=== PATIENT | male | born 1960 | race Caucasian/White ===

== ENCOUNTER 2018-07-25 16:43 | Inpatient (IN) | payer OTHER ==
[~2018-07-25] VITALS: Ht 175.3 cm; Wt 80.0 kg
[2018-07-25 17:24] LABS: Source, Urine Clean Catch
[2018-07-25 17:32] LABS: BASOPHILS ABSOLUTE AUTO 0.04 K/mm3 (0.00-0.23); BASOPHILS PERCENT AUTO 1 % (0-2); EOSINOPHILS ABSOLUTE AUTO 0.06 K/mm3 (0.00-0.68); EOSINOPHILS PERCENT AUTO 1 % (0-6); Hematocrit 37.9 % (37.0-53.0); Hemoglobin 12.7 g/dL (13.5-17.5); IMMATURE GRAN ABSOLUTE AUTO 0.03 K/mm3 (0.00-0.10); IMMATURE GRAN PERCENT AUTO 0 % (0-1); LYMPHOCYTES PERCENT AUTO 23 % (21-46); MONOCYTES ABSOLUTE AUTO 0.38 K/mm3 (0.16-1.47); MONOCYTES PERCENT AUTO 5 % (4-13); Mean Corpuscular HGB 28.2 pg (26.0-34.0); Mean Corpuscular HGB Conc 33.5 g/dL (31.5-36.5); Mean Corpuscular Volume 84 fL (80-100); Mean Platelet Volume 10.5 fL (9.1-12.4); NEUTROPHILS ABSOLUTE AUTO 5.49 K/mm3 (1.96-9.15); NEUTROPHILS PERCENT AUTO 70 % (41-73); Platelet Count 352 K/mm3 (150-400); RDW Coefficient Variation 12.8 % (11.7-14.2); RDW Standard Deviation 38.4 fL (35.1-46.3)
[2018-07-25 17:33] LABS: Appearance, Urine Clear (Clear); Bilirubin, Urine Neg (Neg); Blood, Urine Neg (Neg); Color, Urine Yellow (P-Yellow); Glucose Qualitative, Urine 4+ (Neg); Ketones, Urine Neg (Neg); Leukocyte Esterase, Urine Neg (Neg); Nitrite, Urine Neg (Neg); Protein, Urine Neg (Neg); Urobilinogen, Urine NORM (Normal)
[2018-07-25 17:43] LABS: International Normalized Ratio 0.93; Prothrombin Time Results 9.4 Sec (9.7-11.5)
[2018-07-25 17:52] LABS: U Amphetamine Screen DETECTED; U Barbituate Screen Not Detected; U Benzodiazapine Screen Not Detected; U Buprenorphine Screen Not Detected; U Cannabinoids Screen Not Detected; U Cocaine Screen Not Detected; U Methadone Screen Not Detected; U Methamphetamine Screen Not Detected; U Opiates Screen Not Detected; U Oxycodone Screen Not Detected; U Phencyclidine Screen Not Detected; U Propoxyphene Screen Not Detected
[2018-07-25 17:55] LABS: Ethanol (Alcohol), Blood, Med 3 mg/dL
[2018-07-25 18:26] LABS: Alanine Aminotransfer (ALT/SGP 37 U/L (12-78); Albumin, Blood 3.1 g/dL (3.4-5.0); Albumin/Globulin Ratio 0.7 (0.8-1.8); Alk Phos 190 U/L (50-136); Anion Gap 7 mmol/L (6-16); Aspartate Aminotrans (AST/SGOT 15 U/L (12-37); Bilirubin, Total 0.5 mg/dL (0.1-1.0); Blood Urea Nitrogen 26 mg/dL (8-24); CO2, Blood 24 mmol/L (21-32); Calcium, Blood 8.9 mg/dL (8.5-10.1); Chloride, Blood 90 mmol/L (98-108); Creatinine, Blood 0.93 mg/dL (0.60-1.20); Globulin, Blood 4.7 g/dL (2.2-4.0); Glomerular Filtration Rate >60 (60-); Glucose, Blood 956 mg/dL (70-99); Potassium, Blood 4.1 mmol/L (3.5-5.5); Sodium, Blood 121 mmol/L (136-145); Total Protein, Blood 7.8 g/dL (6.4-8.2)
--- NOTE | 2018-07-25 20:25 | NUR ---
REPORT FROM LISA REZA FROM ED AT 2021.
[2018-07-25 22:11] LABS: Glucose, Blood 406 mg/dL (70-99)
--- NOTE | 2018-07-25 23:36 | NUR ---
HOSPITALIST CALL BACK: UPDATED RE: TRENDING DOWN BLOOD GLUCOSE LEVELS. NEW ORDER TO STOP INSULIN gtt FOR NOW. CHANGE DIET TO ADA. ALLOW PT TO EAT. CONTINUE TO TAKE Q1' CHEMBG. RESTART gtt AT 0.5u/hr IF BLOOD GLUCOSE ABOVE 250. WHEN BLOOD GLUCOSE BELOW 200 CALL FOR NEW ORDERS. CURRENTLY RECHECKING BLOOD GLUCOSE.
--- NOTE | 2018-07-25 23:46 | NUR ---
LEG CRAMPS: PT USED CALL LIGHT. C/O LEG CRAMPS, "IT HAPPENS ABOUT THIS TIME EVERY NIGHT". SCD'S PLACED. PT STATED IS RELIEVING LEG CRAMPS.
--- NOTE | 2018-07-26 02:49 | NUR ---
INSULIN REMAINS AT 2u/hr FOR BLOOD GLUCOSE 378 POST MEAL.
[2018-07-26 03:11] LABS: Hematocrit 32.8 % (37.0-53.0); Hemoglobin 11.3 g/dL (13.5-17.5); Mean Corpuscular HGB 28.7 pg (26.0-34.0); Mean Corpuscular HGB Conc 34.5 g/dL (31.5-36.5); Mean Corpuscular Volume 83 fL (80-100); Mean Platelet Volume 10.1 fL (9.1-12.4); Platelet Count 289 K/mm3 (150-400); RDW Coefficient Variation 12.5 % (11.7-14.2); RDW Standard Deviation 37.9 fL (35.1-46.3); Red Blood Cell Count 3.94 M/mm3 (4.30-5.90); White Blood Cell Count 8.26 K/mm3 (4.00-11.30)
[2018-07-26 03:28] LABS: Anion Gap 5 mmol/L (6-16); Blood Urea Nitrogen 21 mg/dL (8-24); Bun/Creatinine Ratio 25.6 (12.0-20.0); CO2, Blood 26 mmol/L (21-32); Calcium, Blood 8.1 mg/dL (8.5-10.1); Chloride, Blood 105 mmol/L (98-108); Creatinine, Blood 0.82 mg/dL (0.60-1.20); Glomerular Filtration Rate >60 (60-); Glucose, Blood 361 mg/dL (70-99); Potassium, Blood 3.6 mmol/L (3.5-5.5)
[2018-07-26 03:30] LABS: CHOL/HDL RATIO 6.3; Cholesterol 182 mg/dL (50-200); HDL Cholesterol 29 mg/dL (>39); LDL/HDL RATIO Unable to Calculate; Low Density Lipoprotein Chol Unable to Calculate mg/dL (0-110); Triglycerides 449 mg/dL (30-160); Very Low Density Lipoprot Chol Unable to Calculate mg/dL (6-32)
[2018-07-26 03:41] LABS: LDL Direct Measurement 113 mg/dL (0-130)
[2018-07-26 03:47] LABS: Sodium, Blood 136 mmol/L (136-145)
--- NOTE | 2018-07-26 03:50 | NUR ---
INSULIN gtt INCREASED TO 2.5u/hr FOR BLOOD GLUCOSE 361. WILL CONTINUE TO MONITOR.
--- NOTE | 2018-07-26 05:43 | NUR ---
INUSLIN REMAINS AT 2.5, BLOOD GLUCOSE 266. PT PLEASANT-NO COMPLAINTS. SIPPING DECAF COFFEE AND WATCHING VIDEOS ON CELL PHONE. VSS. CALL LIGHT WITHIN REACH.
--- NOTE | 2018-07-26 05:51 | NUR ---
PT WITH C/O PAIN, SOB, OR ANXIETY T/O NOC. PT PLEASANT. VSS. PT WITH VERBAL UNDERSTANDING OF UPCOMING PROCEDURE. PT CONTINUES TO DESAT OFF BIPAP. BIPAP SETTINGS REMAIN 10/6 FiO2 45%. PT UP TO SIDE OF BED WHEN NEEDS URINAL WITHOUT DIFFICULTY. CALL LIGHT IN HAND.
--- NOTE | 2018-07-26 07:14 | NUR ---
REPORT TO EDITA REZA TO ASSUME CARE OF PT AT THIS TIME.
--- NOTE | 2018-07-26 07:30 | NUR ---
ASSUMED CARE OF PATIENT; SEE ASSESSMENT CHARTING FOR DETAILS. LUNGS CLEAR; VSS. MAEW; UP FOR BRP WITH SBA; SL. WOBBILY AT FIRST. DENIES VERTIGO. CBG READINGS STABILIZED IN 200'S. WILL CONTACT HOSP. FOR CBG CHANGES AND D/C INSULIN DRIP, ETC. CURRENTLY RECEIVING INSULIN GTT AT 2.5U/HR AND NS AT 150ML/HR.
--- NOTE | 2018-07-26 09:00 | NUR ---
T/C TO DR. BROWN TO SEE IF INSULIN GTT CAN BE DC'D AND PATIENT CHANGED TO AC/HS SLIDING SCALE INSULIN, ETC.; SEE ORDERS.
--- NOTE | 2018-07-26 09:30 | NUR ---
DR. BROWN HERE AND TALKED WITH PATIENT RE: POC OF HYPERGLYCEMIA/DM. PATIENT WILL NEED TO BE SETUP WITH A PCP, ETC. PRIMER ASSEMBLER TO SPEAK WITH PATIENT AND INSTRUCT ON DIET ETC. MAT REPAIRER TO COORDINATE FOR PCP, ETC.
--- NOTE | 2018-07-26 15:15 | NUR ---
LUIS ALBERTO FROM [facility] HERE; SETUP APPOINTMENT FOR PATIENT TO SEE KAMALJIT ZULUAGA NP ON SUNDAY AT 0930; ALSO GAVE PATIENT A GLUCOMETER AND RECOMMENDED IF PATIENT IS DISCHARGED OVER W/E FOR PHYSICIAN TO ORDER BASAGLAR (LONG ACTING INSULIN) BECAUSE NO PREAUTH. INDICATED THROUGH [facility]; [facility] CAN LATER WORK ON PREAUTH. FOR DIFFERENT LONG ACTING INSULIN IF NEEDED.
--- NOTE | 2018-07-26 15:20 | NUR ---
REPORT TO JUAQUIN ENGLISH. PATIENT TO TRANSFER TO MEDICAL FLOOR, ROOM 343; NO MONITOR ONGOING.
--- NOTE | 2018-07-26 15:30 | NUR ---
TRAMSFERRED TO MEDICAL FLOOR, ROOM 343, VIA W/C BY JUNIOR ASSISTANT MANAGER 2. PATIENT DENIES ACUTE C/O. BELONGINGS ACCOMPANYING PATIENT WELL CHART.
--- NOTE | 2018-07-26 15:44 | NUR ---
PATIENT TRANSFERRED FROM ICU 14 TO ROOM 343. ASSUMED CARE OF THIS PATIENT, REPORT RECEIVED FROM JUAQUIN KOHLER. PATIENT IS A/O, UP TO RESTROOM INDEPENDENTLY. LUNGS CLEAR, ON RA. DENIES ANY PAIN OR DISCOMFORT. A FEW ABRASIONS TO FACE AND BACK FROM FALL WHEN PATIENT WAS DISORIENTED AND HYOERGLYCEMIC. PATIENT ORIENTED TO ROOM AND INSTRUCTED ON USE OF CALL LIGHT.
--- NOTE | 2018-07-27 05:45 | NUR ---
SHIFT SUMMARY PT HAS SLEPT WELL T/O NIGHT. OFFERS NO C/O'S. NO ACUTE EVENTS NOTED DURING THE NIGHT. WILL CONTINUE TO MONITOR.
[2018-07-27 08:06] LABS: Albumin, Blood 2.8 g/dL (3.4-5.0); Anion Gap 7 mmol/L (6-16); Blood Urea Nitrogen 17 mg/dL (8-24); Bun/Creatinine Ratio 20.6 (12.0-20.0); CO2, Blood 25 mmol/L (21-32); Calcium, Blood 8.8 mg/dL (8.5-10.1); Chloride, Blood 106 mmol/L (98-108); Creatinine, Blood 0.83 mg/dL (0.60-1.20); Glomerular Filtration Rate >60 (60-); Glucose, Blood 293 mg/dL (70-99); Phosphorus, Blood 2.8 mg/dL (2.5-4.9); Sodium, Blood 138 mmol/L (136-145)
[2018-07-27] MEDS ORDERED: INSULANPEN SC (12:18)
[2018-07-27] MEDS ORDERED: Lisinopril2.5 MG PO (12:19)
[2018-07-27] MEDS ORDERED: NICO21TP TOP (12:20)
[2018-07-27] MEDS ORDERED: Humalog100 UNIT/1 SC (12:21)
--- NOTE | 2018-07-27 12:37 | NUR ---
CALLED IN TEST STRIPS FOR CONTOUR METER AND LANCETS TO [facility]. QTY 100 TO BE USED ACHS.
--- NOTE | 2018-07-27 14:45 | NUR ---
PATIENT D/C'D TO HOME WITH FAMILY. RX MEDICATIONS FAXED TO [facility]. PATIENT DEMONSTRATED HOW TO TAKE HIS BLOOD SUGAR USING HIS METER AND GAVE HIMSELF A SHOT OF INSULIN. COPY OF MEDIUM SLIDING SCALE GIVEN TO PATIENT AND HE WAS EDUCATED ON USE. D/C INSTRUCTIONS AND EDUCATION DISCUSSED WITH PATIENT AND COPY PROVIDED. PATIENT DENIES ANY FURTHER QUESTIONS OR CONCERNS.
== END 2018-07-27 14:55 | disposition home or self-care (01) | DRG 638 ==
LOC: ER 16:43 → ICUW 19:08 → MEDS 07-26 15:30 → ENPENDDIS 07-27 11:33 → MEDS 07-27 14:55
PROVIDERS: Internal Medicine; Nurse Practitioner Acute Care; Physician Assistant; ADMIT Internal Medicine
DX: E11.65 Type 2 diabetes mellitus with hyperglycemia (principal); E87.1 Hypo-osmolality and hyponatremia; E86.0 Dehydration; F19.10 Other psychoactive substance abuse, uncomplicated; F17.210 Nicotine dependence, cigarettes, uncomplicated; I10 Essential (primary) hypertension
CPT/HCPCS: 36415; 70450; 80048; 80053; 80061; 80069; 81003; 82947; 83036; 83721; 83735; 83880; 85025; 85027; 85610; 93005; 93010; 96360; 99285-25; G0480; J1650; J1815; J7030

== ENCOUNTER 2022-01-19 23:22 | Observation (INO) | payer OTHER ==
[~2022-01-19] VITALS: Ht 175.3 cm; Wt 66.1 kg
[~2022-01-19 23:22] MED LIST: Humalog100 UNIT/1 SC; INSULANPEN SC; Lisinopril2.5 MG PO; NICO21TP TOP
[2022-01-20 00:21] LABS: BASOPHILS ABSOLUTE AUTO 0.06 K/mm3 (0.00-0.23); BASOPHILS PERCENT AUTO 1 % (0-2); EOSINOPHILS ABSOLUTE AUTO 0.07 K/mm3 (0.00-0.68); EOSINOPHILS PERCENT AUTO 1 % (0-6); Hematocrit 40.3 % (37.0-53.0); Hemoglobin 13.9 g/dL (13.5-17.5); IMMATURE GRAN ABSOLUTE AUTO 0.03 K/mm3 (0.00-0.10); IMMATURE GRAN PERCENT AUTO 0 % (0-1); LYMPHOCYTES ABSOLUTE AUTO 1.75 K/mm3 (0.84-5.20); LYMPHOCYTES PERCENT AUTO 24 % (21-46); MONOCYTES ABSOLUTE AUTO 0.62 K/mm3 (0.16-1.47); MONOCYTES PERCENT AUTO 9 % (4-13); Mean Corpuscular HGB 28.8 pg (26.0-34.0); Mean Corpuscular HGB Conc 34.5 g/dL (31.5-36.5); Mean Corpuscular Volume 84 fL (80-100); Mean Platelet Volume 10.7 fL (9.1-12.4); NEUTROPHILS ABSOLUTE AUTO 4.72 K/mm3 (1.96-9.15); NEUTROPHILS PERCENT AUTO 65 % (41-73); Platelet Count 329 K/mm3 (150-400); RDW Coefficient Variation 12.2 % (11.7-14.2); RDW Standard Deviation 37.2 fL (35.1-46.3); Red Blood Cell Count 4.82 M/mm3 (4.30-5.90); White Blood Cell Count 7.25 K/mm3 (4.00-11.30)
[2022-01-20 00:44] LABS: Albumin/Globulin Ratio 0.7 (0.8-1.8); Bilirubin, Total 0.3 mg/dL (0.1-1.0); Bun/Creatinine Ratio 24.1 (12.0-20.0); Creatinine, Blood 0.96 mg/dL (0.60-1.20); Globulin, Blood 4.2 g/dL (2.2-4.0); Potassium, Blood 4.1 mmol/L (3.5-5.5); Total Protein, Blood 7.2 g/dL (6.4-8.2)
[2022-01-20 01:04] LABS: Source, Urine Clean Catch
[2022-01-20 01:16] LABS: Bilirubin, Urine Neg (Neg); Blood, Urine Neg (Neg); Glucose Qualitative, Urine 4+ (Neg); Ketones, Urine Neg (Neg); Leukocyte Esterase, Urine Neg (Neg); Nitrite, Urine Neg (Neg); Protein, Urine Neg (Neg); Urobilinogen, Urine NORM (Normal)
[2022-01-20 01:18] LABS: Appearance, Urine Clear (Clear); Color, Urine Pale Yellow (P-Yellow)
[2022-01-20 02:10] LABS: Base Excess Venous 0.5 mmol/L; Bicarbonate Venous 24.6 mmol/L (24.0-30.0); PCO2 Venous 42.5 mmHg (38-42); pH Blood Venous 7.39 (7.34-7.37)
--- NOTE | 2022-01-20 05:45 | NUR ---
SHIFT SUMMARY: PT. ARRIVED AT APPROX 0500 FOR MANAGEMENT OF INSULIN DRIP. PT. IS A&0 X4 AND IS ABLE TO AMBULATE WITH STANDBY ASSISTANCE. PT. WAS HUNGRY AND A SANDWICH WAS GIVEN. ALL OTHER SYSTEMS ARE WNL AND PT. IS RESTING COMFORTABLY WITH CALL LIGHT IN REACH.
[2022-01-20 05:55] LABS: Bun/Creatinine Ratio 23.1 (12.0-20.0); Calcium, Blood 8.9 mg/dL (8.5-10.1); Creatinine, Blood 0.74 mg/dL (0.60-1.20); Potassium, Blood 3.3 mmol/L (3.5-5.5)
--- NOTE | 2022-01-20 07:10 | NUR ---
TOOK OVER CARE OF PT AT 0700, PT RESTING ON RA. INSULIN ON SB.
--- NOTE | 2022-01-20 16:17 | NUR ---
SUMMARY NEURO: WNL CARDIAC: WNL LUNGS: WNL SKIN: WOUND ON L FOOT- PHOTO IN CHART. REDNESS AND SWELLING TO LOWER CALF AND FOOT. GI/: WNL ENDOCRINE: INSULIN GTT STOPPED THIS AM, POTASSIUM REPLACED WITH 40 MEQ
--- NOTE | 2022-01-20 17:59 | NUR ---
TRANSFER NOTE: PT A&O X4 PLEASANT AND COOPERATIVE. PT TRANSFERED VIA WHEELCHAIR BY ICU STAFF. PT TRANSFER SBA ASSIST FROM WHEELCHAIR TO BED. PT ORIENTATED TO ROOM, CALL LIGHT AND COMMUNICATION BOARD. PT RECEVIED SANDWHICHES AND SNACKS. PT IN BED WITH LIGHT WITHIN REACH.
--- NOTE | 2022-01-20 21:30 | NUR ---
CALL TO DR. PANTOJA RE: PT CBG 351- PT HAD SNACK AT CHANGE OF SHIFT- OK TO GIVE HS DOSING OF INSULIN - NO NEW ORDERS
--- NOTE | 2022-01-21 04:12 | NUR ---
SHIFT SUMMARY PT UPSET AT BEGINNING OF SHIFT - PT STATED "THE FOOD IS NOT GOOD HERE AND SMALL PORTIONS- I MINE WELL LEAVE" - PT REQUESTED SNACK MULTIPLE TIMES DURING THE BEGINNING SHIFT AND PT LEFT ROOM FOR 10-15 MINUTES- PT REPORTED HE WENT OUTSIDE FOR FRESH AIR- EXPLAINED TO PT THAT HE NEEDS TO NOT LEAVE THE HOSPITAL- PT STATED THAT HE AGREED- NOTIFIED HOSPITIAL THAT CBG WAS 351 AT HS- PT HAD ATE SNACKS BEFORE CBG- NO NEW ORDERS- PT SLEPT FOR MOST OF SHIFT
[2022-01-21 06:11] LABS: Hematocrit 44.7 % (37.0-53.0); Hemoglobin 15.4 g/dL (13.5-17.5); Mean Corpuscular HGB 29.4 pg (26.0-34.0); Mean Corpuscular HGB Conc 34.5 g/dL (31.5-36.5); Mean Corpuscular Volume 86 fL (80-100); Mean Platelet Volume 11.1 fL (9.1-12.4); Platelet Count 339 K/mm3 (150-400); RDW Coefficient Variation 12.4 % (11.7-14.2); RDW Standard Deviation 38.9 fL (35.1-46.3); Red Blood Cell Count 5.23 M/mm3 (4.30-5.90); White Blood Cell Count 7.46 K/mm3 (4.00-11.30)
[2022-01-21 06:42] LABS: Bun/Creatinine Ratio 34.5 (12.0-20.0); Calcium, Blood 9.6 mg/dL (8.5-10.1); Creatinine, Blood 0.75 mg/dL (0.60-1.20); Potassium, Blood 4.2 mmol/L (3.5-5.5)
--- NOTE | 2022-01-21 11:38 | NUR ---
NURSE NOTE: PT CB, DR. MARIE CONTACTED NEW ORDER FOR ONE TIME DOSE 5 UNITS ADDITIONAL HUMULIN R GIVEN WITH SCHEDCULED MEDIUM SLIDING SCALE OF 10 UNITS. RECHECK CBG IN 2 HOURS.
[2022-01-21] MEDS ORDERED: CEPH500 PO (13:51)
[2022-01-21] MEDS ORDERED: BASAGLAR K100 UNIT/1 SC (13:55)
[2022-01-21] MEDS ORDERED: METF500C PO (13:57)
--- NOTE | 2022-01-21 17:10 | NUR ---
DISCHARGE SUMMARY: PT A&O PLEASANT AND COOPERATIVE. PT EDUCATED ON BLOOD SUGAR CHECKS, INSULIN ADMINISTRATION, AND WOUND FOOT CARE. PT DISPLAYED UNDERSTANDING WITH TEACH BACK METHOD. PT ESCORTED DOWN TO THE LOBBY FOR TRANSPORT BY CAROLYN CONSTANTINO RN VIA .
== END 2022-01-21 16:58 | disposition home or self-care (01) ==
LOC: ER 23:22 → ICUW 23:23 → MEDS 01-20 17:57
PROVIDERS: Emergency Medicine; Internal Medicine; Physician Assistant; ADMIT Internal Medicine
DX: E11.00 Type 2 diabetes mellitus with hyperosmolarity without nonketotic hyperglycemic-hyperosmolar coma (NKHHC) (principal); F17.200 Nicotine dependence, unspecified, uncomplicated; S91.302A Unspecified open wound, left foot, initial encounter
CPT/HCPCS: 36415; 73630; 80048; 80053; 81003; 82803; 82947; 83690; 83930; 85025; 85027; 90714; 96372; A9270; G0378; J1650; J1815; J7030

== ENCOUNTER 2022-02-23 17:50 | Inpatient (IN) | payer OTHER ==
[~2022-02-23] VITALS: Ht 175.3 cm; Wt 67.9 kg
[~2022-02-23 17:50] MED LIST changes: +BASAGLAR K100 UNIT/1 SC; +CEPH500 PO; +METF500C PO
[2022-02-23 19:48] LABS: BASOPHILS ABSOLUTE AUTO 0.06 K/mm3 (0.00-0.23); BASOPHILS PERCENT AUTO 0 % (0-2); EOSINOPHILS ABSOLUTE AUTO 0.06 K/mm3 (0.00-0.68); EOSINOPHILS PERCENT AUTO 0 % (0-6); Hematocrit 39.2 % (37.0-53.0); Hemoglobin 13.4 g/dL (13.5-17.5); IMMATURE GRAN ABSOLUTE AUTO 0.08 K/mm3 (0.00-0.10); IMMATURE GRAN PERCENT AUTO 1 % (0-1); LYMPHOCYTES ABSOLUTE AUTO 2.22 K/mm3 (0.84-5.20); LYMPHOCYTES PERCENT AUTO 15 % (21-46); MONOCYTES ABSOLUTE AUTO 1.36 K/mm3 (0.16-1.47); MONOCYTES PERCENT AUTO 9 % (4-13); Mean Corpuscular HGB 28.6 pg (26.0-34.0); Mean Corpuscular HGB Conc 34.2 g/dL (31.5-36.5); Mean Corpuscular Volume 84 fL (80-100); NEUTROPHILS ABSOLUTE AUTO 11.56 K/mm3 (1.96-9.15); NEUTROPHILS PERCENT AUTO 75 % (41-73); Platelet Count 414 K/mm3 (150-400); RDW Standard Deviation 36.4 fL (35.1-46.3); Red Blood Cell Count 4.68 M/mm3 (4.30-5.90); White Blood Cell Count 15.34 K/mm3 (4.00-11.30)
[2022-02-23 20:18] LABS: Albumin, Blood 2.8 g/dL (3.4-5.0); Albumin/Globulin Ratio 0.6 (0.8-1.8); Bilirubin, Total 0.3 mg/dL (0.1-1.0); Bun/Creatinine Ratio 20.6 (12.0-20.0); Calcium, Blood 8.8 mg/dL (8.5-10.1); Creatinine, Blood 0.82 mg/dL (0.60-1.20); Globulin, Blood 4.4 g/dL (2.2-4.0); Potassium, Blood 3.9 mmol/L (3.5-5.5); Total Protein, Blood 7.2 g/dL (6.4-8.2)
[2022-02-24 05:57] LABS: BASOPHILS ABSOLUTE AUTO 0.05 K/mm3 (0.00-0.23); BASOPHILS PERCENT AUTO 0 % (0-2); EOSINOPHILS ABSOLUTE AUTO 0.07 K/mm3 (0.00-0.68); EOSINOPHILS PERCENT AUTO 1 % (0-6); Hematocrit 38.6 % (37.0-53.0); Hemoglobin 13.2 g/dL (13.5-17.5); IMMATURE GRAN ABSOLUTE AUTO 0.05 K/mm3 (0.00-0.10); IMMATURE GRAN PERCENT AUTO 0 % (0-1); LYMPHOCYTES ABSOLUTE AUTO 1.81 K/mm3 (0.84-5.20); LYMPHOCYTES PERCENT AUTO 15 % (21-46); MONOCYTES ABSOLUTE AUTO 0.96 K/mm3 (0.16-1.47); MONOCYTES PERCENT AUTO 8 % (4-13); Mean Corpuscular HGB 28.5 pg (26.0-34.0); Mean Corpuscular HGB Conc 34.2 g/dL (31.5-36.5); Mean Corpuscular Volume 83 fL (80-100); Mean Platelet Volume 10.3 fL (9.1-12.4); NEUTROPHILS ABSOLUTE AUTO 9.42 K/mm3 (1.96-9.15); NEUTROPHILS PERCENT AUTO 76 % (41-73); Platelet Count 382 K/mm3 (150-400); RDW Coefficient Variation 12.1 % (11.7-14.2); RDW Standard Deviation 36.3 fL (35.1-46.3); Red Blood Cell Count 4.63 M/mm3 (4.30-5.90); White Blood Cell Count 12.36 K/mm3 (4.00-11.30)
--- NOTE | 2022-02-24 06:26 | NUR ---
MR. GROVES WAS ADMITTED TO ROOM 326 FROM THE ER AT 02:21 THIS MORNING. AT THAT TIME, HE WAS QUITE SLEEPY BUT EASY TO AROUSE FOR ADMISSION HISTORY AND ASSESSMENT. HIS SPEECH IS SOMEWHAT DIFFICULT TO UNDERSTAND AT TIMES. HE MUMBLES AND HIS SPEECH IS "THICK" SOUNDING. PATIENT DENIES ANY CHANGES TO HIS SPEECH FROM HIS BASELINE. 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 GROVES ARRIVED DISHEVELED BUT IN NO DISTRESS. HIS HANDS, FEET AND CLOTHING ARE SOILED WITH DIRT "FROM WORKING OUTSIDE," AND HE REFUSED A BED BATH UPON ADMISSION BUT IS AGREEABLE TO A SHOWER AFTER HE GETS SOME SLEEP. PICTURES TAKEN OF WOUNDS TO BILAT FEET. SEE CHART. MR. GROVES DECLINED THE FLU VACCINATION UPON ADMISSION. HE IS REQUESTING THAT THE VACCINATION BE DELAYED UNTIL HE FEELS BETTER, PREFERABLY JUST BEFORE DISCHARGE. NURSE NOTIFICATION ORDER PLACED PER INSTRUCTIONS FROM FUNNEL COATERJUAQUIN SILVA AND PER PATIENT REQUEST. HE SLEPT THROUGH MOST OF THE NIGHT. HE WAS UP TO THE BATHROOM EARLY THIS MORNING AND ABLE TO AMBULATE WITH STANDBY ASSISTANCE. BED ALARM IN PLACE DUE TO HISTORY OF FALLS.
[2022-02-24 06:42] LABS: Albumin, Blood 2.4 g/dL (3.4-5.0); Albumin/Globulin Ratio 0.6 (0.8-1.8); Bilirubin, Total 0.3 mg/dL (0.1-1.0); Bun/Creatinine Ratio 21.2 (12.0-20.0); Calcium, Blood 8.5 mg/dL (8.5-10.1); Creatinine, Blood 0.71 mg/dL (0.60-1.20); Globulin, Blood 4.1 g/dL (2.2-4.0); Potassium, Blood 3.7 mmol/L (3.5-5.5); Total Protein, Blood 6.5 g/dL (6.4-8.2)
--- NOTE | 2022-02-24 10:19 | NUR ---
LEFT FOOT WOUND CLEANED WOUND USEING SKIN TEGRITY WOUND LANGUAGE THERAPIST, CVERED WITH SPONGE BANDAGE
--- NOTE | 2022-02-24 17:30 | NUR ---
PT IS A/OX3, PLEASANT AND COOPERATIVE. UP WITH MINIMAL ASSIST THE PT HAS A SKIN TEAR ON THE RIGHT KNEE CLEANED AND BANDAGE APPLIED WELL A LEFT FOOT OPEN WOUND WITH TUNNELING BANDAGE APPLIED. PT DENIED ANY PAIN T/O THE DAY. THE PT IS TO BE NPO AFTER MN TONIGHT. PT APPEARS TO BE BREATHING EASILY ON RA, CALL LIGHT IN REACH
[2022-02-24 23:07] LABS: Vancomycin, Trough 13.3 ug/mL (5.0-10.0)
[2022-02-25 05:47] LABS: BASOPHILS ABSOLUTE AUTO 0.05 K/mm3 (0.00-0.23); BASOPHILS PERCENT AUTO 0 % (0-2); EOSINOPHILS ABSOLUTE AUTO 0.05 K/mm3 (0.00-0.68); EOSINOPHILS PERCENT AUTO 0 % (0-6); Hematocrit 39.8 % (37.0-53.0); Hemoglobin 13.4 g/dL (13.5-17.5); IMMATURE GRAN ABSOLUTE AUTO 0.07 K/mm3 (0.00-0.10); IMMATURE GRAN PERCENT AUTO 1 % (0-1); LYMPHOCYTES ABSOLUTE AUTO 1.94 K/mm3 (0.84-5.20); LYMPHOCYTES PERCENT AUTO 15 % (21-46); MONOCYTES ABSOLUTE AUTO 1.13 K/mm3 (0.16-1.47); MONOCYTES PERCENT AUTO 9 % (4-13); Mean Corpuscular HGB 28.1 pg (26.0-34.0); Mean Corpuscular HGB Conc 33.7 g/dL (31.5-36.5); Mean Corpuscular Volume 83 fL (80-100); Mean Platelet Volume 10.3 fL (9.1-12.4); NEUTROPHILS ABSOLUTE AUTO 9.33 K/mm3 (1.96-9.15); NEUTROPHILS PERCENT AUTO 74 % (41-73); Platelet Count 425 K/mm3 (150-400); RDW Coefficient Variation 11.9 % (11.7-14.2); RDW Standard Deviation 36.4 fL (35.1-46.3); Red Blood Cell Count 4.77 M/mm3 (4.30-5.90); White Blood Cell Count 12.57 K/mm3 (4.00-11.30)
--- NOTE | 2022-02-25 05:56 | NUR ---
SHIFT SUMMARY: PT IS ALERT AND ORIENTED. PT IS CALM AND COOPERATIVE WITH CARE. PT CALLS APPROPRIATELY. PT SCHEDULED TO HAVE I & D TODAY ON L. FOOT WOUND, NPO AFTER MIDNIGHT. PT DENIES PAIN, NAUSEA, VOMITING, AND SOB. SATS > 90% ON ROOM AIR. NO ACUTE CHANGES OR COMPLICATIONS THIS SHIFT. BED IN LOW POSITION, CALL LIGHT WITHIN REACH, WILL CONTINUE TO MONITOR AND REPORT TO DAY NURSE.
[2022-02-25 05:57] LABS: Bun/Creatinine Ratio 28.9 (12.0-20.0); Calcium, Blood 8.6 mg/dL (8.5-10.1); Creatinine, Blood 0.76 mg/dL (0.60-1.20)
--- NOTE | 2022-02-25 17:40 | NUR ---
SHIFT SUMMARY PT AxOx4. PT WENT FOR SURGICAL INTERVENTION THIS SHIFT, RESULTING IN AMPUTATION OF 2 SMALL TOES ON LLE. PT ARRIVED BACK FROM PACU AT APPROX 1400. LLE WRAPPED IN GAUZE DRESSINGS WITH SKYE ON OUTSIDE. DRESSING C/D/I. POST OP VITALS INITIATED. PT DROWSY UPON ARRIVAL, BUT VITALS REMAINED STABLE. PT DID HAVE SOME IMPULSIVE AND AGGRESSIVE BEHAVIOR AFTER HE WOKE UP FROM NAPPING LATER IN THE AFTERNOON. PT PROCEEDED TO JUMP OUT OF BED WITH UNSTEADY GAIT RUSHING TO BATHROOM STATING "IM FINE, IM FINE." BED ALARM TURNED ON AND FALL RISK EDUCATION PROVIDED. PT ALSO THREW A WHOLE PLATE OF SALAD ALL OVER THE GROUND STATING "IF I WANTED THIS GREEN SHIT TO EAT, I WOULD JUST GO OUTSIDE AND EAT THE GRASS." PT WAS GIVEN SEVERAL OTHER PANTRY SNACK BEFORE DINNER WELL. PT REPORTS PAIN STARTING TO KICK IN THIS EVENING AND GIVEN ONE PAIN PILL. PT IS CURRENTLY SITTING IN BED EATING DINNER AND WATCHING TV. VITALS ARE STILL BEING CLOSELY MONITORED AND CALL LIGHT IS IN REACH.
--- NOTE | 2022-02-26 04:20 | NUR ---
Summary: Patient Aox4. VSS. IV antibiotics given. Patient very easily agitated. Glucose elevated in 400s. Notified MD. No new orders, sliding scale given per orders. Patient continuously asking for food, ice cream, cake and soda. Education provided multiple times, provided sugar free options to patient. Patient attempted to get out of bed multiple times after education was provided to call before so staff could help him as he is not to bear weight on foot with toes amputated today. Educated patient to use walker like crutches to avoid putting weight on L foot wound. Patient asked to see his foot wound, educated patient that the doctor would remove the dressing in the next day or two, we needed to leave it in place to prevent infection. Patient removed dressing himself. New dressing applied by nurse. Patient removed his IV stating is was "bugging him". New IV placed. Education provided for patient to not remove lines himself.
[2022-02-26 05:32] LABS: BASOPHILS ABSOLUTE AUTO 0.03 K/mm3 (0.00-0.23); BASOPHILS PERCENT AUTO 0 % (0-2); EOSINOPHILS PERCENT AUTO 0 % (0-6); Hemoglobin 12.3 g/dL (13.5-17.5); IMMATURE GRAN ABSOLUTE AUTO 0.09 K/mm3 (0.00-0.10); IMMATURE GRAN PERCENT AUTO 1 % (0-1); LYMPHOCYTES ABSOLUTE AUTO 1.43 K/mm3 (0.84-5.20); LYMPHOCYTES PERCENT AUTO 8 % (21-46); MONOCYTES ABSOLUTE AUTO 1.46 K/mm3 (0.16-1.47); MONOCYTES PERCENT AUTO 8 % (4-13); Mean Corpuscular HGB 28.5 pg (26.0-34.0); Mean Corpuscular HGB Conc 34.2 g/dL (31.5-36.5); Mean Corpuscular Volume 83 fL (80-100); Mean Platelet Volume 10.4 fL (9.1-12.4); NEUTROPHILS ABSOLUTE AUTO 14.92 K/mm3 (1.96-9.15); NEUTROPHILS PERCENT AUTO 83 % (41-73); Platelet Count 439 K/mm3 (150-400); RDW Coefficient Variation 11.9 % (11.7-14.2); RDW Standard Deviation 36.6 fL (35.1-46.3); Red Blood Cell Count 4.32 M/mm3 (4.30-5.90); White Blood Cell Count 17.93 K/mm3 (4.00-11.30)
[2022-02-26 05:56] LABS: Bun/Creatinine Ratio 33.7 (12.0-20.0); Calcium, Blood 8.7 mg/dL (8.5-10.1); Creatinine, Blood 0.89 mg/dL (0.60-1.20); Potassium, Blood 4.2 mmol/L (3.5-5.5)
[2022-02-26 15:30] LABS: Vancomycin, Trough 19.1 ug/mL (5.0-10.0)
--- NOTE | 2022-02-26 17:45 | NUR ---
SHIFT SUMMARY; ASSUMED CARE AT 0700. OFTEN AGITATED AND DEMANDING DURING SHIFT. YELLING AT BREAKFAST THAT THE FOOD AMOUNT ISN'T ENOUGH TO FEED A 10 YEAR OLD. SHOVES BEDSIDE TABLE AWAY FROM BED. EVENUTALLY ATE BREAKFAST AND SANDWHICHES PROVIDED. DISCUSSED FILLING OUT MENU TO BE ABLE TO SELECT CHOICES. WORKED WITH PT, AMBULATES IN ROOM WITH WALKER. LEFT FOOT DRESSING DRY AND INTACT. PULLS IV OUT IN AFTERNOON AND STATES WAS "JUST SCRATCHING". PLACED NEW IV TO LEFT FORE ARM. LEAVES ROOM AT APPROX 1600 AFTER 30 MINS CALLED SECURITY TO ASSIST IN LOCATING PT. PT SITTING IN ER LOBBY. ASKED TO COME BACK TO ROOM BY SECURITY. RETURNS TO ROOM AT 1645. WHEN ENTERING ROOM TELLS THIS RN HE DOESN'T LIKE ME AND WANTS A NEW NURSE. STATES IT'S BULLSHIT HE CAN'T GET A SALAD AROUND HERE AND ALL WE WANT TO DO IS STARVE HIM. ASKED PT MULTIPLE TIMES TO LOWER VOICE AND NOT BE AGRESSIVE TOWARDS STAFF. EXPLAINED [employer]FETERIA HOURS AND THAT ONLY SNACKS ARE AVAILABLE FROM OUR PANTRY BETWEEN MEALS. EVENTUALLY CALMS AND STATES IS SORRY. CHEESE AND CRACKER PROVIDED. NEXT MEAL TIME DISCUSSED. WATCHING TV, MEDICATED PER EMAR. WILL CONTINUE TO MONITOR AND TREAT UNTIL CHANGE OF SHIFT.
--- NOTE | 2022-02-27 04:37 | NUR ---
Summary: Patient did well overnight. He slept for majority of the night. Pain controlled with oral meds. Ambulating independently for the most part with a walker. Dressing to L foot clean dry and intact. VSS. No acute events. IV abx given.
--- NOTE | 2022-02-27 12:00 | NUR ---
PT PULLS OUT HIS IV. HE THREATENS TO LEAVE AMA, STATES THAT HE WANTS TO GO HOME. BECOMES AGGITATED, STATES HE DOESN'T LIKE THE FOOD AND IS "STARVING IN HERE", DESPITE HAVING MULTIPLE SNACKS. THROWS HIS URINAL ON THE GROUND. RN RE-EDUCATED PT THAT IN THE HOSPITAL HIS ABX TREATMENT WILL COME THROUGH AN IV, SO IF HE WOULD LIKE TO REMAIN IN THE HOSPITAL FOR TREATMENT, HE WILL NEED TO LEAVE HIS IV'S IN PLACE. NEW IV IS PLACED BY JUAQUIN HERNANDEZ. RN WRAPPED PT'S IV WITH COBAN AND NETTING. ADVISED PT THAT IF THE IV BECOMES PAINFUL, NOTIFY RN PRIOR TO REMOVING THE IV HIMSELF.
--- NOTE | 2022-02-27 17:24 | NUR ---
PT WALKED OFF THE FLOOR. RN ADVISED PT THAT HE NEEDS TO RECEIVE HIS VANCO, BUT PT STATED HE WASN'T READY. HE WANTS TO GO TO THE ER AND SIT THERE TO CLEAR HIS HEAD. PT WAS ADVISED BY THIS RN AND INTERFACE ANALYST THAT IT'S AGAINST OUR POLICY FOR PTS TO LEAVE THE MEDICAL FLOOR. PT BECAME AGITATED, AND WALKED OFF THE FLOOR USING A WALKER. RN PLACED A PHONE CALL TO DR. MARTINEZ TO UPDATE HIM. RN UPDATED PHARMACIST THAT PT'S [address] MARTINEZ WITH ORDERS TO ADD A TOXICOLOGY SCREEN TO THE MORNING LABS AND ALSO PO ATIVAN 0.5 MG BID PRN ANXIETY.
--- NOTE | 2022-02-27 17:39 | NUR ---
RN NOTIFIED SECURITY, AND ASKED TO MONITOR PATIENTLY REMOTELY THTRIP CAMERA. PT DID NOT LEAVE THE FLOOR TO GO TO THE ER, HE PREVIOUSLY STATED. PT IS CURRENTLY SITTING NEXT TO THE ELEVATORS ON THE THIRD FLOOR, SO HE IS STILL COMPLYING WITH HOSPITAL POLICY. HE IS BEARING WEIGHT ON HIS LEFT FOOT (AGAINST THE ADVICE OF DR. ANTOINE,WHO ADVISED TO KEEP WEIGHT OFF THE FOOT TO PROMOTE HEALING), AND REFUSED VANCOMYCIN TREATMENT AT 1600 TODAY.
--- NOTE | 2022-02-27 19:18 | NUR ---
SHIFT SUMMARY PT HAS A LABILE MOOD, HE WILL THREATEN TO LEAVE AMA WHEN HE IS TOLD NO. FOR EXAMPLE, IF HE DOESN'T RECEIVE ADEQUATE SNACKS DUE TO HIS MULITPLE REQUESTS, HE WILL THREATEN TO LEAVE. HE MISSED HIS 1600 VANCO DOSE BECAUSE HE WANTED TO LEAVE HIS ROOM AND SIT OUT ON THE MEDICAL FLOOR. HE PULLED HIS IV EARLIER THIS SHIFT, BECAUSE IT WAS HURTING HIM. HE NOW HAS A NEW IV PLACED, AND IT IS WRAPPED WITH COBAN AND WHITE NETTING. DR. ANTOINE ROUNDED ON PT AT BEDSIDE, AND RECOMMENDED THAT HE REMAIN NON WEIGHT BEARING MUCH POSSIBLE TO LEFT FOOT. PT STATES THAT HE WANTS TO WALK AROUND THE MEDICAL FLOOR. RN RE-EDUCATED PT THAT PURPOSE OF IV'S IS FOR ABX TREATMENT, WHICH IS THE REASON HE'S HERE IN THE HOSPITAL. PT FLUCTUATES ON WANTING TO LEAVE AND BEING WILLING TO CONSENT TO STAY. HE REMAINED ON MEDICAL FLOOR, AND WAS OBSERVED BY SECURITY. ROOM AIR. INDPENDENT IN ROOM, USES URINAL AT BEDSIDE.
--- NOTE | 2022-02-28 05:12 | NUR ---
Jose Maria: Patient VSS throughout night. Patient very easily agitated and consistently saying he is leaving but redirectable into staying. IV antibiotics given. Patient ambulated to the restroom independently. Patient educated to not bear full weight on his foot with wound. Dressing clean dry and intact on L foot.
[2022-02-28 15:23] LABS: Vancomycin, Trough 19.1 ug/mL (5.0-10.0)
[2022-02-28] MEDS ORDERED: AUGMENTIN PO (15:32)
[2022-02-28] MEDS ORDERED: AMOCLA875 PO (15:41)
--- NOTE | 2022-02-28 16:09 | NUR ---
SHIFT/DISCHARGE SUMMARY: PATIENT A&OX4. PLEASANT AND MOOD FLUCTUATES T/O SHIFT. DENIES CP/CHEST DISCOMFORT. LUNGS CLEAR T/O TO AUSCULTATIONS. DENIES PAIN TO LLE. RECEIVED SCHEDULED MEDS. PATIENT PULLED IV TO L FOREARM THIS AM. REFUSED SCHEDULED NOON ANTIBIOTIC. RECEIVED BS COVERAGE PER EMAR. PATIENT HAS BEEN AMBULATING IN ROOM AND HALLWAYS INDEPENDENTLY. VITAL SIGNS REVIEWED. PATIENT DISCHARGE HOME. DISCHARGE INSTURCTION PACKET GIVEN TO PATIENT. CHAO GUNNER'S MATE EDUCATE PATIENT REGARDING ADMITTING DX, S/S, TX, AND NEW PRESCRIBED MEDICATIONS. PATIENT STATED UNDERSTANDING AND NO FURTHER QUESTIONS. RX WAS FAXED TO PATIENT PREFERRED PHARMACY. ALL PATIENT PERSONAL BELONGINGS WERE SENT HOME WITH THE PATIENT. PATIENT WAS TRANSPORTED VIA WHEELCHAIR BY GUNNER'S MATE, CHAO COCHRAN TO PATIENT TRANSPORT VEHICLE.
== END 2022-02-28 16:02 | disposition home or self-care (01) | DRG 854 ==
LOC: ER 17:50 → MEDS 02-24 01:29
PROVIDERS: Emergency Medicine; Family Medicine; Podiatrist Foot & Ankle Surgery; Student in an Organized Health Care Education/Training Program; ADMIT Family Medicine
PROC: 3E03329 Introduction of Other Anti-infective into Peripheral Vein, Percutaneous Approach (ICD-10-PCS; 2022-02-24)
PROC: 0Y6N0ZD Detachment at Left Foot, Partial 4th Ray, Open Approach (ICD-10-PCS; principal; 2022-02-25 10:30)
PROC: 0Y6N0ZF Detachment at Left Foot, Partial 5th Ray, Open Approach (ICD-10-PCS; 2022-02-25 10:30)
DX: A40.1 Sepsis due to streptococcus, group B (principal); L02.612 Cutaneous abscess of left foot; M86.8X7 Other osteomyelitis, ankle and foot; E11.69 Type 2 diabetes mellitus with other specified complication; F15.10 Other stimulant abuse, uncomplicated; E11.621 Type 2 diabetes mellitus with foot ulcer; F17.210 Nicotine dependence, cigarettes, uncomplicated; L97.529 Non-pressure chronic ulcer of other part of left foot with unspecified severity; Z79.2 Long term (current) use of antibiotics; Z79.4 Long term (current) use of insulin; Z79.84 Long term (current) use of oral hypoglycemic drugs; Z87.820 Personal history of traumatic brain injury; Z98.890 Other specified postprocedural states
CPT/HCPCS: 36415; 73630; 73718; 80048; 80053; 80202; 82947; 83605; 85025; 85651; 86141; 87040; 87070; 87075; 87147; 87205; 88305; 88311; 96365; 96366; 96375; 97116; 97161; 99285-25; A9270; J0696; J1100; J1815; J2250; J2370; J2405; J2543; J2704; J2795; J3010; J3370; J7050; J7120

== ENCOUNTER 2022-05-15 13:11 | Inpatient (IN) | payer OTHER ==
[~2022-05-15] VITALS: Ht 175.3 cm; Wt 66.5 kg
[~2022-05-15 13:11] MED LIST changes: +AMOCLA875 PO; +AUGMENTIN PO
[2022-05-15 14:00] LABS: BASOPHILS ABSOLUTE AUTO 0.07 K/mm3 (0.00-0.23); BASOPHILS PERCENT AUTO 0 % (0-2); EOSINOPHILS ABSOLUTE AUTO 0.04 K/mm3 (0.00-0.68); EOSINOPHILS PERCENT AUTO 0 % (0-6); Hematocrit 45.2 % (37.0-53.0); Hemoglobin 15.6 g/dL (13.5-17.5); IMMATURE GRAN ABSOLUTE AUTO 0.07 K/mm3 (0.00-0.10); IMMATURE GRAN PERCENT AUTO 0 % (0-1); LYMPHOCYTES ABSOLUTE AUTO 0.75 K/mm3 (0.84-5.20); LYMPHOCYTES PERCENT AUTO 4 % (21-46); MONOCYTES ABSOLUTE AUTO 1.21 K/mm3 (0.16-1.47); MONOCYTES PERCENT AUTO 6 % (4-13); Mean Corpuscular HGB Conc 34.5 g/dL (31.5-36.5); Mean Corpuscular Volume 81 fL (80-100); Mean Platelet Volume 10.5 fL (9.1-12.4); NEUTROPHILS ABSOLUTE AUTO 16.94 K/mm3 (1.96-9.15); NEUTROPHILS PERCENT AUTO 89 % (41-73); Platelet Count 313 K/mm3 (150-400); RDW Coefficient Variation 13.2 % (11.7-14.2); RDW Standard Deviation 38.7 fL (35.1-46.3); Red Blood Cell Count 5.58 M/mm3 (4.30-5.90); White Blood Cell Count 19.08 K/mm3 (4.00-11.30)
[2022-05-15 14:13] LABS: Albumin, Blood 3.4 g/dL (3.4-5.0); Albumin/Globulin Ratio 0.7 (0.8-1.8); Bilirubin, Total 0.7 mg/dL (0.1-1.0); Bun/Creatinine Ratio 25.8 (12.0-20.0); Calcium, Blood 9.4 mg/dL (8.5-10.1); Creatinine, Blood 0.81 mg/dL (0.60-1.20); Globulin, Blood 4.6 g/dL (2.2-4.0); Potassium, Blood 4.4 mmol/L (3.5-5.5)
[2022-05-15 15:11] LABS: Beta-hydroxybutyrate 1.2 mg/dL (0.2-2.8)
[2022-05-15 15:19] LABS: C-REACTIVE PROTEIN, EXT RANGE 4.57 mg/dL (0.000-0.300)
[2022-05-15 16:30] LABS: Source, Urine Clean Catch
[2022-05-15 16:41] LABS: Appearance, Urine Clear (Clear); Bilirubin, Urine Neg (Neg); Blood, Urine Neg (Neg); Glucose Qualitative, Urine 4+ (Neg); Ketones, Urine Neg (Neg); Leukocyte Esterase, Urine Neg (Neg); Nitrite, Urine Neg (Neg); Protein, Urine Neg (Neg); Specific Gravity, Urine 1.005 (1.003-1.022); Urobilinogen, Urine NORM (Normal); pH, Urine 6.5 (5.0-8.0)
[2022-05-15 16:52] LABS: Color, Urine Pale Yellow (P-Yellow)
[2022-05-15 16:59] LABS: U Amphetamine Screen DETECTED; U Barbituate Screen Not Detected; U Benzodiazapine Screen Not Detected; U Buprenorphine Screen Not Detected; U Cannabinoids Screen DETECTED; U Cocaine Screen Not Detected; U Methadone Screen Not Detected; U Methamphetamine Screen DETECTED; U Opiates Screen Not Detected; U Oxycodone Screen Not Detected; U Phencyclidine Screen Not Detected; U Propoxyphene Screen Not Detected
--- NOTE | 2022-05-15 18:21 | NUR ---
PT ADMITTED TO ICU 3 VIA GURNEY AND 2 PERSON TRANSFER FROM ED. PT IS TOLD WHAT IS HAPPENING NEXT AND HE IS COMPLIANT. HE ACCEPTED THE FLU VACCINE, RECEIVED INFORMATION REGARDING THE LOVENOX, TEACHING ABOUT THE USE OF THE INSULIN GTT AND FREQUENT MONITORING. ALLOWED FOR CLOTHES TO BE REMOVED AND BE ATTACHED TO THE MONITORS. PT EXHIBITS UNDERSTANDING. HE FALLS ASLEEP VERY QUICKLY. IS SOMETIMES DIFFICLT TO UNDERSTAND HE HAS EDENTULOUS.
--- NOTE | 2022-05-15 19:26 | NUR ---
SPOKE WITH IN REGARDS TO CONSULT FOR PODIATRY. HE STATES HE WILL SEE PT TOMORROW MORNING. PT IS QUIETLY RESTING, HE WAS ABLE TO STAND AT BEDSIDE TO USE HIS URINAL AND RETURNED TO BED WITHOUT INCIDENT. REPORT TO NEXT SHIFT.
--- NOTE | 2022-05-15 19:40 | NUR ---
ASSUMED CARE OF PT, BEDSIDE REPORT RECEIVED. GTTS VERIFIED WITH OFFGOING RN. PT'S GOAL FOR THIS SHIFT IS TO SLEEP AND TO ADVANCE TO PO INTAKE. HE DENIES PAIN OTHER THAN HUNGER PAINS TO HIS STOMACH AT THIS TIME. HE IS NOTED COOPERATIVE WITH ASSESSMENT HOWEVER MINIMAL VERBAL REPLIES. PLAN OF CARE FOR THIS SHIFT IS DISCUSSED AND PT VERBALIZED AGREEMENT. WILL PLAN TO APPLY DRESSING TO RIGHT FOOT WOUND, REMOVE SUTURE FROM LEFT FOOT, MONITOR BLOOD GLUCOSE LEVELS. WILL CALL MD REGARDING LABS/FLUIDS FOLLOWING NEXT BLOOD GLUCOSE CHECK.
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
[2022-05-15 21:13] LABS: Bun/Creatinine Ratio 28.1 (12.0-20.0); Creatinine, Blood 0.64 mg/dL (0.60-1.20); Potassium, Blood 3.5 mmol/L (3.5-5.5)
--- NOTE | 2022-05-15 21:42 | NUR ---
PHYSICIAN UPDATE SPOKE WITH DR CHISHOLM REGARDING BMP RESULTS, ORDERS OBTAINED TO DC INSULIN GTT, ADMINISTER LANTUS 10 UNITS SUB Q NOW AND START THE PREVIOUSLY ORDERED 20 UNITS BID IN AM, CONTINUE NS @ 100 ML/HR FOR 1 MORE LITER, CHANGE BLOOD GLUCOSE TO AC AND HS WITH MEDIUM SLIDING SCALE HUMALOG FOR COVERAGE, ADMINISTER POTASSIUM 20 MEQ PO NOW, ADVANCE DIET TO ADA TOLERATED, AND TRANSFER PT TO PCU STATUS.
--- NOTE | 2022-05-16 01:40 | NUR ---
ASSUMED CARE OF PATIENT. PATIENT APPEARS TO BE SLEEPING AT THIS TIME. RESP EVEN AND UNLABORED
--- NOTE | 2022-05-16 03:26 | NUR ---
PATIENT AWAKE, C/O 6/10 PAIN TO WOUND ON FOOT DOCTOR BRIONNA NOTIFIED AND ORDER OBTAINED. PATIENT EATING SNACK WITHOUT DIFFICULTY.
[2022-05-16 03:31] LABS: BASOPHILS ABSOLUTE AUTO 0.07 K/mm3 (0.00-0.23); BASOPHILS PERCENT AUTO 1 % (0-2); EOSINOPHILS ABSOLUTE AUTO 0.08 K/mm3 (0.00-0.68); EOSINOPHILS PERCENT AUTO 1 % (0-6); Hemoglobin 15.2 g/dL (13.5-17.5); IMMATURE GRAN ABSOLUTE AUTO 0.04 K/mm3 (0.00-0.10); IMMATURE GRAN PERCENT AUTO 0 % (0-1); LYMPHOCYTES ABSOLUTE AUTO 1.89 K/mm3 (0.84-5.20); LYMPHOCYTES PERCENT AUTO 15 % (21-46); MONOCYTES ABSOLUTE AUTO 0.98 K/mm3 (0.16-1.47); MONOCYTES PERCENT AUTO 8 % (4-13); Mean Corpuscular HGB 27.7 pg (26.0-34.0); Mean Corpuscular HGB Conc 33.8 g/dL (31.5-36.5); Mean Corpuscular Volume 82 fL (80-100); Mean Platelet Volume 10.4 fL (9.1-12.4); NEUTROPHILS ABSOLUTE AUTO 9.24 K/mm3 (1.96-9.15); NEUTROPHILS PERCENT AUTO 75 % (41-73); Platelet Count 290 K/mm3 (150-400); RDW Coefficient Variation 13.2 % (11.7-14.2); RDW Standard Deviation 39.5 fL (35.1-46.3); Red Blood Cell Count 5.48 M/mm3 (4.30-5.90)
[2022-05-16 03:51] LABS: Albumin, Blood 2.5 g/dL (3.4-5.0); Albumin/Globulin Ratio 0.6 (0.8-1.8); Bilirubin, Total 0.5 mg/dL (0.1-1.0); Bun/Creatinine Ratio 24.9 (12.0-20.0); Calcium, Blood 8.2 mg/dL (8.5-10.1); Creatinine, Blood 0.76 mg/dL (0.60-1.20); Globulin, Blood 4.2 g/dL (2.2-4.0); Potassium, Blood 4.2 mmol/L (3.5-5.5); Total Protein, Blood 6.7 g/dL (6.4-8.2)
--- NOTE | 2022-05-16 06:34 | NUR ---
SUMMARY PATIENT SLEEPING OFF AND ON THIS MORNING, REQUESTING FOOD WHEN AWAKE. RIGHT FOOT DRESSING HAD SOME BLOODY DRAINAGE DRESSING REINFORCED WITH KERLEX. MEDICATED ONCE FOR PAIN WITH GOOD RESULTS.
--- NOTE | 2022-05-16 10:42 | NUR ---
SHIFT ASSESSMENT ASSUMED CARE OF PT @ 0700. PT SLEEPING, AROUSES EASILY. A&OX4, FOLLOWING COMMANDS, CURRIE, WALKS WITH A CANE. TOLERATING PO INTAKE WELL, STRONG APPETITE. DR ANTOINE IN THIS AM TO ASSESS BURN TO R FOOT, RECOMMENDS DAILY APPLICATIONS OF SILVADENE DURING DRESSING CHANGES. APPLIED TODAY @ 0900 c NON-ADHERENT DRESSING AND KERLEX. PT AMBULATING TO BEDSIDE COMMODE WITHOUT DIFFICULTY. WILL MONITOR CLOSELY.
--- NOTE | 2022-05-16 11:26 | NUR ---
"Spiritual Care | Pt. Request Pt. is awake in bed and welcomes my visit. Pt. had just been given food, and was presently devouring it. Pt. was unsettled but guarded about his condition. Pt. displays evidence of holding back his real concerns. Prayed with Pt. Pt. verbalized gratitude for the spiritual care visit."
--- NOTE | 2022-05-16 23:57 | NUR ---
PT TOOK OFF THE DRESSING ON HIS RIGHT FOOT BECAUSE IT WAS IRRITATING HIM. IT WAS REDRESSED AT 4534
--- NOTE | 2022-05-17 05:57 | NUR ---
YSHIFT SUMMARY PT IS A&OX4, MOVES IND IN THE ROOM, HAS BEEN SR/ST 90'S-100'S ON TELE, AND HE DENIES N/V/D, ANGINA, OR SOB. PT DID COMPLAIN OF SOME PAIN ON HIS RIGHT HEEL AND WAS MEDICATED PER EMAR. HE WAS PICKING AT HIS BANDAGE AND COMPLETELY TOOK IT OFF, SO IT WAS REDRESSED. EXTENSIVE EDUCATION WAS PROVIDED ABOUT SKIN CARE, INFECTION, FALL RISK, PAIN MANAGMENT, AND CURRENT ILLNESS. PT WAS PASSIVE WITH EDUCATION AND WAS HYPER FOCUSED ON SNACKS AND DRINKS. HIS BED IS IN LOW, CALL LIGHT IS IN REACH, AND I WILL CONTINUE TO MONITOR UNTIL SHIFT REPORT IS GIVEN TO THE ONCOMING SHIFT RN. SEE NOTES FOR ANY CHANGES OR UPDATES.
[2022-05-17 06:03] LABS: Hematocrit 47.6 % (37.0-53.0); Hemoglobin 15.8 g/dL (13.5-17.5); Mean Corpuscular HGB 27.6 pg (26.0-34.0); Mean Corpuscular HGB Conc 33.2 g/dL (31.5-36.5); Mean Corpuscular Volume 83 fL (80-100); Mean Platelet Volume 10.3 fL (9.1-12.4); Platelet Count 306 K/mm3 (150-400); RDW Coefficient Variation 13.3 % (11.7-14.2); RDW Standard Deviation 39.9 fL (35.1-46.3); Red Blood Cell Count 5.73 M/mm3 (4.30-5.90)
[2022-05-17 06:28] LABS: Albumin, Blood 2.6 g/dL (3.4-5.0); Anion Gap 5 mmol/L (6-16); Blood Urea Nitrogen 25 mg/dL (8-24); Bun/Creatinine Ratio 29.1 (12.0-20.0); CO2, Blood 29 mmol/L (21-32); Calcium, Blood 9.1 mg/dL (8.5-10.1); Chloride, Blood 97 mmol/L (98-108); Creatinine, Blood 0.86 mg/dL (0.60-1.20); Glomerular Filtration Rate 99 (60-); Glucose, Blood 253 mg/dL (70-99); Phosphorus, Blood 2.5 mg/dL (2.5-4.9); Potassium, Blood 4.2 mmol/L (3.5-5.5); Sodium, Blood 131 mmol/L (136-145)
--- NOTE | 2022-05-17 11:05 | NUR ---
ASSUMED CARE OF PT AT 0700 THIS AM. NO ACUTE CHANGES SINCE. WOUND DRESSING CHANGED TO R FOOT, CLEANSED WITH WOUND CLEANSER, SILVERDINE APPLIED, NONADHERENT DRESSING AND GAUZE WRAP. PT TOLERATED WELL.
--- NOTE | 2022-05-17 11:18 | NUR ---
TRANSFER TO 361 REPORT RECIEVED FROM SHAMIR REZA. CONTINUE POC.
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
--- NOTE | 2022-05-17 18:43 | NUR ---
EVENING NOTE PT ALERT AND RELAXED. ENJOYE DHIS DINNER. NO THREATS OF LEAVING BECAUSE HIS PORTION WASN'T BIG ENOUGH. DRESSING TO RIGHT FOOT CHANGED AFTER U/S WAS COMPLETE. CBG COVERED WITH MEAL CORRECTION OF 7 UNITS. TALKED MORE ABOUT CHECKING HIS BLOOD SUGARS AND HOW IMPORTANT IT IS FOR WOUND HEALING. CONTINUE POC.
[2022-05-18 06:03] LABS: Albumin, Blood 2.6 g/dL (3.4-5.0); Anion Gap 5 mmol/L (6-16); Blood Urea Nitrogen 30 mg/dL (8-24); Bun/Creatinine Ratio 34.9 (12.0-20.0); CO2, Blood 27 mmol/L (21-32); Calcium, Blood 8.9 mg/dL (8.5-10.1); Chloride, Blood 101 mmol/L (98-108); Creatinine, Blood 0.86 mg/dL (0.60-1.20); Glomerular Filtration Rate 99 (60-); Glucose, Blood 325 mg/dL (70-99); Potassium, Blood 4.3 mmol/L (3.5-5.5); Sodium, Blood 133 mmol/L (136-145)
--- NOTE | 2022-05-18 07:35 | NUR ---
shIFT suMMARY PT HAS HAD A VERY LABLE MOOD. BEING VERY UPSET ABOUT NTOT RECIEIVING CARE WITHOUT EVER USING THE CALL LIGHT, ACCUSING STAFF OF IGNORING HIM. HOWEVER WITH REASSURANCE AND CARE PT QUICKLY RESUMES PLEASANT DEMEANOR. HE IS STANDBY NI THE ROOM, NON WEIGHT BEARING ON HIS RIGHT FOOT. BANDAGES C/D/I/ WOUND CARE SEEING PT. BED IN LOWEST POSITION AND CLAL LIGHT IN REACH.
[2022-05-18] MEDS ORDERED: BASAGLAR K100 UNIT/3 SC (09:53)
[2022-05-18] MEDS ORDERED: HUMALOG KW100 UNIT/1 SC (09:54)
[2022-05-18] MEDS ORDERED: VISBIOME 112.51 EACH PO (09:54)
[2022-05-18] MEDS ORDERED: SILVADENE20 G1 TOP (09:54)
[2022-05-18] MEDS ORDERED: CEPH500 PO (09:55)
[2022-05-18] MEDS ORDERED: Percocet 5-3251 EACH PO (09:59)
--- NOTE | 2022-05-18 12:14 | NUR ---
DISCHARGE PATIENT TRANSPORTED VIA WHEELCHAIR TO [facility]. DISCHARGE INSTRUCTIONS EXPLAINED TO PATIENT. PATIENT STATED UNDERSTANDING. PACKET SENT WITH PATIENT. BELONGINGS SENT WITH PATIENT, INCLUDING VAPE PEN FROM LOCK DRAWER. WOUND SUPPLIES SENT WITH PATIENT PER WOUND NURSE. SURGICAL SHOE SENT WITH PATIENT PER ORDER. INSTRUCTED PATIENT ABOUT WOUND CARE AND SENT PATIENT WITH DIRECTIONS. RESOURCES FOR RIDES TO APPOINTMENTS GIVEN. IV REMOVED WITHOUT DIFFICULTY. WOUND CLINIC CONSULT ORDERED, WOUND CLINIC OFFICE WILL CALL PATIENT. APPOINTMENT FOR FOLLOW UP SCHEDULED WITH PCP, PATIENT INFORMED. MEDICATIONS FAXED TO PREFERRED PHARMACY, HARD SCRIPT SENT WITH PATIENT.
== END 2022-05-18 12:50 | disposition home or self-care (01) | DRG 934 ==
LOC: ER 13:11 → ICUW 13:12 → ICUE 13:12 → ER 13:12 → ICUE 15:45 → ICUW 17:17 → ICUE 21:40 → ICUW 05-16 15:45 → ICUE 05-16 15:45 → PCU 05-16 18:10 → ICUE 05-16 18:10 → PCU 05-16 18:10 → MEDS 05-17 11:50 → PCU 05-17 11:50 → MEDS 05-18 12:50
PROVIDERS: Emergency Medicine; Family Medicine; Internal Medicine; ADMIT Internal Medicine
DX: T25.321A Burn of third degree of right foot, initial encounter (principal); L03.115 Cellulitis of right lower limb; E11.621 Type 2 diabetes mellitus with foot ulcer; L84 Corns and callosities; E11.42 Type 2 diabetes mellitus with diabetic polyneuropathy; L97.519 Non-pressure chronic ulcer of other part of right foot with unspecified severity; E11.65 Type 2 diabetes mellitus with hyperglycemia; F17.210 Nicotine dependence, cigarettes, uncomplicated; F15.10 Other stimulant abuse, uncomplicated; X16.XXXA Contact with hot heating appliances, radiators and pipes, initial encounter; Z89.422 Acquired absence of other left toe(s); Z87.39 Personal history of other diseases of the musculoskeletal system and connective tissue; Z87.820 Personal history of traumatic brain injury; Z23 Encounter for immunization; Z98.890 Other specified postprocedural states; Z91.199 Patient's noncompliance with other medical treatment and regimen due to unspecified reason
CPT/HCPCS: 36415; 73620; 80048; 80053; 80069; 81003; 82010; 82947; 83605; 83880; 83930; 85025; 85027; 86140; 87040; 90686; 93922; 96361; 96365; 96372; 96375; 96376; 99284-25; A9270; G0378; J0690; J1650; J1815; J3010; J3370; J7030; J7050; J7120

== ENCOUNTER 2022-06-02 00:31 | Emergency (ER) | payer OTHER ==
[~2022-06-02] VITALS: Ht 175.3 cm; Wt 74.8 kg
[~2022-06-02 00:31] MED LIST changes: +BASAGLAR K100 UNIT/3 SC; +HUMALOG KW100 UNIT/1 SC; +Percocet 5-3251 EACH PO; +SILVADENE20 G1 TOP; +VISBIOME 112.51 EACH PO
== END 2022-06-02 01:09 | disposition home or self-care (01) ==
LOC: ER 00:31
DX: T25.021A Burn of unspecified degree of right foot, initial encounter (principal); E11.9 Type 2 diabetes mellitus without complications; F17.210 Nicotine dependence, cigarettes, uncomplicated; Z88.1 Allergy status to other antibiotic agents; Z79.4 Long term (current) use of insulin; Z79.899 Other long term (current) drug therapy
CPT/HCPCS: 99282

== ENCOUNTER 2022-06-25 17:29 | Emergency (ER) | payer OTHER ==
[~2022-06-25] VITALS: Ht 175.3 cm; Wt 74.8 kg
[~2022-06-25 17:29] MED LIST changes: +DOXY100 PO
[2022-06-25 18:56] LABS: Albumin, Blood 2.6 g/dL (3.4-5.0); Albumin/Globulin Ratio 0.5 (0.8-1.8); Bilirubin, Total 0.2 mg/dL (0.1-1.0); Bun/Creatinine Ratio 25.7 (12.0-20.0); Calcium, Blood 8.6 mg/dL (8.5-10.1); Creatinine, Blood 0.66 mg/dL (0.60-1.20); Globulin, Blood 5.1 g/dL (2.2-4.0); Potassium, Blood 3.9 mmol/L (3.5-5.5); Total Protein, Blood 7.7 g/dL (6.4-8.2)
[2022-06-25] MEDS ORDERED: HUMALOG KW100 UNIT/1 SC (19:50)
[2022-06-25] MEDS ORDERED: BASAGLAR K100 UNIT/6 SC (19:50)
== END 2022-06-25 20:59 | disposition home or self-care (01) ==
LOC: ER 17:29
PROVIDERS: Student in an Organized Health Care Education/Training Program
DX: M79.671 Pain in right foot (principal); M79.672 Pain in left foot; E11.65 Type 2 diabetes mellitus with hyperglycemia; F17.210 Nicotine dependence, cigarettes, uncomplicated; Z79.4 Long term (current) use of insulin
CPT/HCPCS: 36415; 80053; 82947; 93005; 93010; J1815; J1885; J7030

== ENCOUNTER 2022-07-10 23:24 | Inpatient (IN) | payer OTHER ==
[~2022-07-10] VITALS: Ht 175.3 cm; Wt 68.0 kg
[~2022-07-10 23:24] MED LIST changes: +BASAGLAR K100 UNIT/6 SC
[2022-07-10 23:39] LABS: Source, Urine Voided
[2022-07-10 23:42] LABS: BASOPHILS ABSOLUTE AUTO 0.07 K/mm3 (0.00-0.23); BASOPHILS PERCENT AUTO 1 % (0-2); EOSINOPHILS ABSOLUTE AUTO 0.03 K/mm3 (0.00-0.68); EOSINOPHILS PERCENT AUTO 0 % (0-6); Hematocrit 37.6 % (37.0-53.0); Hemoglobin 12.7 g/dL (13.5-17.5); IMMATURE GRAN ABSOLUTE AUTO 0.04 K/mm3 (0.00-0.10); IMMATURE GRAN PERCENT AUTO 0 % (0-1); LYMPHOCYTES ABSOLUTE AUTO 1.94 K/mm3 (0.84-5.20); LYMPHOCYTES PERCENT AUTO 15 % (21-46); MONOCYTES ABSOLUTE AUTO 0.92 K/mm3 (0.16-1.47); MONOCYTES PERCENT AUTO 7 % (4-13); Mean Corpuscular HGB 26.6 pg (26.0-34.0); Mean Corpuscular HGB Conc 33.8 g/dL (31.5-36.5); Mean Corpuscular Volume 79 fL (80-100); Mean Platelet Volume 9.7 fL (9.1-12.4); NEUTROPHILS ABSOLUTE AUTO 10.35 K/mm3 (1.96-9.15); NEUTROPHILS PERCENT AUTO 78 % (41-73); Platelet Count 488 K/mm3 (150-400); RDW Coefficient Variation 12.5 % (11.7-14.2); RDW Standard Deviation 35.5 fL (35.1-46.3); Red Blood Cell Count 4.78 M/mm3 (4.30-5.90); White Blood Cell Count 13.35 K/mm3 (4.00-11.30)
[2022-07-10 23:47] LABS: Bilirubin, Urine Neg (Neg); Blood, Urine Neg (Neg); Glucose Qualitative, Urine 4+ (Neg); Ketones, Urine Neg (Neg); Leukocyte Esterase, Urine Neg (Neg); Nitrite, Urine Neg (Neg); Protein, Urine Neg (Neg); Specific Gravity, Urine 1.015 (1.003-1.022); Urobilinogen, Urine NORM (Normal); pH, Urine 6.5 (5.0-8.0)
[2022-07-10 23:53] LABS: Appearance, Urine Clear (Clear); Color, Urine Yellow (P-Yellow)
[2022-07-10 23:57] LABS: Alanine Aminotransfer (ALT/SGP 15 U/L (12-78); Albumin, Blood 2.5 g/dL (3.4-5.0); Albumin/Globulin Ratio 0.5 (0.8-1.8); Alk Phos 162 U/L (50-136); Anion Gap 5 mmol/L (6-16); Aspartate Aminotrans (AST/SGOT 18 U/L (12-37); Beta-hydroxybutyrate 1.3 mg/dL (0.2-2.8); Bilirubin, Total 0.5 mg/dL (0.1-1.0); Blood Urea Nitrogen 9 mg/dL (8-24); Bun/Creatinine Ratio 14.2 (12.0-20.0); CO2, Blood 25 mmol/L (21-32); Calcium, Blood 8.6 mg/dL (8.5-10.1); Chloride, Blood 95 mmol/L (98-108); Creatinine, Blood 0.63 mg/dL (0.60-1.20); Glomerular Filtration Rate 109 (60-); Glucose, Blood 534 mg/dL (70-99); Potassium, Blood 4.2 mmol/L (3.5-5.5); Sodium, Blood 125 mmol/L (136-145); Total Protein, Blood 7.5 g/dL (6.4-8.2)
[2022-07-11 00:33] LABS: Base Excess Venous -0.6 mmol/L; Bicarbonate Venous 23.9 mmol/L (24.0-30.0); PCO2 Venous 39.8 mmHg (38-42)
[2022-07-11 00:33] LABS: Magnesium, Blood 1.6 mg/dL (1.6-2.4)
[2022-07-11 00:47] LABS: Bilirubin, Direct <0.1 mg/dL (0.0-0.3); Bilirubin, Indirect Unable to Calculate mg/dL (0.1-0.7); Phosphorus, Blood 1.4 mg/dL (2.5-4.9)
[2022-07-11 01:33] LABS: International Normalized Ratio 0.98; Prothrombin Time Results 10.3 Sec (9.7-11.5)
[2022-07-11 03:23] LABS: Bun/Creatinine Ratio 11.6 (12.0-20.0); Calcium, Blood 8.1 mg/dL (8.5-10.1); Creatinine, Blood 0.6 mg/dL (0.60-1.20); Potassium, Blood 3.3 mmol/L (3.5-5.5)
[2022-07-11 03:38] VITALS: BP 148/96
[2022-07-11 06:58] LABS: BASOPHILS ABSOLUTE AUTO 0.06 K/mm3 (0.00-0.23); BASOPHILS PERCENT AUTO 1 % (0-2); EOSINOPHILS ABSOLUTE AUTO 0.08 K/mm3 (0.00-0.68); EOSINOPHILS PERCENT AUTO 1 % (0-6); Hematocrit 32.2 % (37.0-53.0); IMMATURE GRAN ABSOLUTE AUTO 0.03 K/mm3 (0.00-0.10); IMMATURE GRAN PERCENT AUTO 0 % (0-1); LYMPHOCYTES ABSOLUTE AUTO 1.93 K/mm3 (0.84-5.20); LYMPHOCYTES PERCENT AUTO 22 % (21-46); MONOCYTES ABSOLUTE AUTO 0.81 K/mm3 (0.16-1.47); MONOCYTES PERCENT AUTO 9 % (4-13); Mean Corpuscular HGB 26.8 pg (26.0-34.0); Mean Corpuscular HGB Conc 34.2 g/dL (31.5-36.5); Mean Corpuscular Volume 79 fL (80-100); Mean Platelet Volume 9.5 fL (9.1-12.4); NEUTROPHILS PERCENT AUTO 67 % (41-73); Platelet Count 429 K/mm3 (150-400); RDW Coefficient Variation 12.6 % (11.7-14.2); RDW Standard Deviation 35.7 fL (35.1-46.3); White Blood Cell Count 8.71 K/mm3 (4.00-11.30)
[2022-07-11 07:24] LABS: Bun/Creatinine Ratio 16.1 (12.0-20.0); Calcium, Blood 7.7 mg/dL (8.5-10.1); Creatinine, Blood 0.62 mg/dL (0.60-1.20); Potassium, Blood 3.9 mmol/L (3.5-5.5)
[2022-07-11 14:51] VITALS: BP 104/58
--- NOTE | 2022-07-11 18:34 | NUR ---
SHIFT SUMMARY: PT A/O X 4 STANDBY ASSIST. PLEASANT AND COOPERATIVE WITH CARE. PT HAS BEEN AFEBRILE THROUGHOUT THE DAY. GOOD APPETITE. BS ARE NOW CONTROLLED AND LAST BS WAS 167. PT EATING WELL AND DRINKING WELL. PAIN TO R FOOT MANAGED WITH TYLENOL AT THIS TIME. WOUNDS ARE FOUL SMELLING NO DRAINAGE AT THIS TIME. PHOTOS OF WOUNDS TAKEN TODAY AND ARE ON CHART.
[2022-07-11 19:21] VITALS: BP 117/62
[2022-07-12 03:01] VITALS: BP 152/101
[2022-07-12 04:32] LABS: BASOPHILS ABSOLUTE AUTO 0.08 K/mm3 (0.00-0.23); BASOPHILS PERCENT AUTO 1 % (0-2); EOSINOPHILS ABSOLUTE AUTO 0.15 K/mm3 (0.00-0.68); EOSINOPHILS PERCENT AUTO 2 % (0-6); Hemoglobin 11.9 g/dL (13.5-17.5); IMMATURE GRAN ABSOLUTE AUTO 0.07 K/mm3 (0.00-0.10); IMMATURE GRAN PERCENT AUTO 1 % (0-1); LYMPHOCYTES ABSOLUTE AUTO 3.02 K/mm3 (0.84-5.20); LYMPHOCYTES PERCENT AUTO 30 % (21-46); MONOCYTES ABSOLUTE AUTO 0.76 K/mm3 (0.16-1.47); MONOCYTES PERCENT AUTO 8 % (4-13); Mean Corpuscular HGB 26.7 pg (26.0-34.0); Mean Corpuscular HGB Conc 33.1 g/dL (31.5-36.5); Mean Corpuscular Volume 81 fL (80-100); Mean Platelet Volume 9.5 fL (9.1-12.4); NEUTROPHILS ABSOLUTE AUTO 5.86 K/mm3 (1.96-9.15); NEUTROPHILS PERCENT AUTO 59 % (41-73); Platelet Count 449 K/mm3 (150-400); RDW Standard Deviation 37.3 fL (35.1-46.3); Red Blood Cell Count 4.46 M/mm3 (4.30-5.90); White Blood Cell Count 9.94 K/mm3 (4.00-11.30)
[2022-07-12 04:55] LABS: Albumin, Blood 2.4 g/dL (3.4-5.0); Anion Gap 1 mmol/L (6-16); Blood Urea Nitrogen 22 mg/dL (8-24); Bun/Creatinine Ratio 31.6 (12.0-20.0); CO2, Blood 27 mmol/L (21-32); Calcium, Blood 8.7 mg/dL (8.5-10.1); Chloride, Blood 105 mmol/L (98-108); Glomerular Filtration Rate 105 (60-); Glucose, Blood 281 mg/dL (70-99); Phosphorus, Blood 2.6 mg/dL (2.5-4.9); Potassium, Blood 4.5 mmol/L (3.5-5.5); Sodium, Blood 133 mmol/L (136-145)
--- NOTE | 2022-07-12 06:00 | NUR ---
A/OX4; CALM AND COOPERATIVE. ABX PER ORDERS. IND TO BATHROOM WITH CANE AT THIS TIME. BILAT FOOT WOUNDS WITH MOD SEROSANG DRAINAGE; ABSORBANT DRSGS APPLIED AND COVERED WITH SOCKS. SLEEP PROMOTED. CALL LIGHT IN REACH; ENCOURAGED TO MAKE NEEDS KNOWN.
[2022-07-12 10:29] LABS: Vancomycin, Trough 11.9 ug/mL (5.0-10.0)
[2022-07-12 15:12] VITALS: BP 127/92
[2022-07-12 19:52] VITALS: BP 124/64
--- NOTE | 2022-07-12 19:58 | NUR ---
SHIFT SUMMARY: PT A/O X 4, IND IN ROOM. PT WAS IRRITABLE AT BEGINNING OF SHIFT AND WHEN ASKED WHY HE SLAMMED HIS BREAKFAST TRAY AND THREW SOME ITEMS ON THE FLOOR HE STATED HE NEEDED TO SMOKE. PT WAS REQUESTED NOT TO THROW ITEMS AND HE APOLOGIZED. PT EDUCATED ON NO SMOKING POLICY AND OFFERED A NICOTINE PATCH WHICH HE DECLINED. AFTER BREAKFAST PT WAS ROUNDED ON AND FOUND IN BED WITH EYES SHUT RR E/U AND DIFFICULT TO AROUSE WITH VERBAL STIMULI BUT AROUSED WITH SHAKING. PT ALSO HAD A VAPE PEN PRODUCT IN HIS HANDS IN BED. PT ADVISED HE CANNOT KEEP DEVICE IN ROOM AND HE HANDED OVER TO THIS RN WHICH WAS PLACED WITH A LABEL IN THE LOCKED DRAWER OUTSIDE HIS ROOM. PT WAS AGAIN OFFERED A NICOTINE PATCH WHICH HE DECLINED. PT SLEPT OFF AND ON MOST OF THE DAY EXCEPT MEALS. AROUND 1545 A LOUD BANG WAS HEARD FROM HIS ROOM. UPON ENTERING HE WAS IN BED AND HIS CELL PHONE WAS FOUND BROKEN IN PIECES BY THE ENTRY DOOR. WHEN THIS RN INQUIRED WHAT HAPPENED THE PT STATED "THAT PHONES A PIECE OF SHIT, JUST THROW IT AWAY." PT INFORMED HE CANNOT THROW OBJECTS IN THE ROOM. PT RESPONDED "SORRY, IT WAS AN ACCIDENT." PT INFORMED THIS RN WOULD NOT THROW HIS PHONE AWAY BUT WOULD PLACE THE PIECES AND BATTERY IN HIS BELONGINGS BAG WHICH PT AGREED TO. PT WATCHED ME PLACED THE CELL PHONE IN HIS BELONGINGS BAG WHICH HAD HIS PANTS AND SHOES. PT ALSO REMINDED AT END OF SHIFT HE DOES NOT NEED SURGERY ON HIS FOOT HE STILL THOUGHT HE NEEDED SURGERY. PT EATING WELL AND DRINKING FLUIDS WELL. PT OFFERED TYLENOL FOR PAIN THROUGHOUT THE DAY WHICH HE REFUSED. PT IS NO EXHIBITING ANY PHYSICAL SIGNS OF PAIN.
[2022-07-13 03:20] VITALS: BP 145/87
--- NOTE | 2022-07-13 05:05 | NUR ---
PATIENT REMAINS ALERT AND ORIENTED X4. PULLED HIS IV WHILE IN SHOWER. PATIENT EDUCATED ON CALLING TO MAKE NEEDS KNOWN. BLE PAIN TREATED PER MAR, IV ABTS INFUSED, SNACKS DELIVERED PER PATIENT REQUEST ALL NIGHT, AND ANXIETY TREATED. WOUNDS OPEN TO AIR, PATIENT REFUSED DRESSINGS AND AT TIMES AMBULATED WITHOUT SOCKS. LUNGS CLEAR, TELE NS, WILL CONT TO MONITOR.
[2022-07-13 07:23] VITALS: BP 125/86
[2022-07-13 15:27] VITALS: BP 135/81
--- NOTE | 2022-07-13 17:48 | NUR ---
SHIFT SUMMARY: PT A&O X4. PT HAS NOT BEEN COOPERATIVE WITH MOST CARE THIS SHIFT. PT TOLERATING IV ABX WELL. TELE IN PLACE RUNNING NSR. PT CONTINUES TO STATE THAT HE IS "STARVING" BUT WILL COMPLAIN WHEN MEALS ARRIVE STATING HOW DISGUSTING IT IS AND TO TAKE AWAY. OFFERED DIABETIC SNACKS WHICH PT WAS ALSO NOT HAPPY WITH. PT REFUSED WOUND DRESSING THIS SHIFT. HOUSING OPTIONS PROVIDED TO PT. BLOOD SUGARS 200'S THROUGHOUT SHIFT. LONG AND SHORT ACTING INSULIN PROVIDED. FENTANYL D/C ON DRUG SAFETY PHYSICIAN. PT HAS NOT C/O PAIN AT ANY POINT THIS SHIFT. CALL LIGHT IN REACH. BED IN LOWEST POSITION. WILL CONTINUE TO MONITOR.
--- NOTE | 2022-07-13 23:04 | NUR ---
PATIENT IS TAKING OOUT IV'S AND REMOVING TELE EACH SHIFT. STATES THEY ARE IN MY WAY. FULLY ORIENTED, IND IN ROOM. 0000 IV ANTIBIOTICS REFUSED. ROOM IS COVERED IN BLOOD FROM PICKING, AND TRASH FROM FOOD. BLOOD SUGAR WAS 447, PROVIDER NOTIFIED, NO NEW ORDERS.
[2022-07-14 00:16] VITALS: BP 128/79
[2022-07-14 03:39] VITALS: BP 137/87
[2022-07-14 07:46] VITALS: BP 134/88
[2022-07-14] MEDS ORDERED: CEPH500 PO (12:15)
[2022-07-14] MEDS ORDERED: LEVO750 PO (12:15)
[2022-07-14] MEDS ORDERED: VISBIOME 112.51 EACH PO (12:16)
[2022-07-14] MEDS ORDERED: HUMALOG KW100 UNIT/1 SC (12:17)
[2022-07-14] MEDS ORDERED: BASAGLAR K100 UNIT/1 SC (12:18)
--- NOTE | 2022-07-14 12:50 | NUR ---
DISCHARGE: PT D/C VIA VAN BY WHEELCHAIR. NO IV TO TAKE OUT DUE TO PULLING OUT ON GRAIN FARMER. TELE ALSO REMOVED ON GRAIN FARMER. PT VERY UPSET TO LEAVE AND STATES HE IS NOT REFUSING CARE. PT REFUSED TO SIGN DISCHARGE PAPER. PT LEFT VAPE PEN AND PHONE BULK STATION OPERATOR. INSULIN GIVEN BEFORE D/C. MEDS FAXED TO [facility].
== END 2022-07-14 13:01 | disposition home or self-care (01) | DRG 871 ==
LOC: ER 23:24 → MEDS 07-11 00:46
PROVIDERS: Family Medicine; Internal Medicine; Student in an Organized Health Care Education/Training Program; ADMIT Internal Medicine
DX: A41.9 Sepsis, unspecified organism (principal); E11.00 Type 2 diabetes mellitus with hyperosmolarity without nonketotic hyperglycemic-hyperosmolar coma (NKHHC); E87.1 Hypo-osmolality and hyponatremia; E87.20 Acidosis, unspecified; R65.20 Severe sepsis without septic shock; E11.621 Type 2 diabetes mellitus with foot ulcer; L97.519 Non-pressure chronic ulcer of other part of right foot with unspecified severity; F15.10 Other stimulant abuse, uncomplicated; L97.529 Non-pressure chronic ulcer of other part of left foot with unspecified severity; B96.4 Proteus (mirabilis) (morganii) as the cause of diseases classified elsewhere; B95.0 Streptococcus, group A, as the cause of diseases classified elsewhere; B95.4 Other streptococcus as the cause of diseases classified elsewhere; F17.210 Nicotine dependence, cigarettes, uncomplicated; Z59.02 Unsheltered homelessness; Z87.820 Personal history of traumatic brain injury; Z98.890 Other specified postprocedural states; Z79.4 Long term (current) use of insulin; Z89.432 Acquired absence of left foot; Z87.39 Personal history of other diseases of the musculoskeletal system and connective tissue
CPT/HCPCS: 36415; 73630; 80048; 80053; 80069; 80202; 81003; 82010; 82248; 82803; 82947; 83605; 83735; 84100; 85025; 85610; 87040; 87070; 87075; 87077; 87147; 87186; 87205; 93005; 93010; 94640; 94664; 96365; 96367; 99285-25; A9270; J1650; J1815; J2543; J3010; J3370; J3480; J7030; J7050

== ENCOUNTER 2022-07-28 01:26 | Inpatient (IN) | payer OTHER ==
[~2022-07-28] VITALS: Ht 175.3 cm; Wt 67.9 kg
[~2022-07-28 01:26] MED LIST changes: +LEVO750 PO
[2022-07-28 02:35] LABS: BASOPHILS ABSOLUTE AUTO 0.06 K/mm3 (0.00-0.23); BASOPHILS PERCENT AUTO 0 % (0-2); EOSINOPHILS PERCENT AUTO 1 % (0-6); Hematocrit 32.5 % (37.0-53.0); Hemoglobin 10.9 g/dL (13.5-17.5); IMMATURE GRAN ABSOLUTE AUTO 0.08 K/mm3 (0.00-0.10); IMMATURE GRAN PERCENT AUTO 1 % (0-1); LYMPHOCYTES ABSOLUTE AUTO 1.73 K/mm3 (0.84-5.20); LYMPHOCYTES PERCENT AUTO 11 % (21-46); MONOCYTES ABSOLUTE AUTO 1.39 K/mm3 (0.16-1.47); MONOCYTES PERCENT AUTO 9 % (4-13); Mean Corpuscular HGB 26.3 pg (26.0-34.0); Mean Corpuscular HGB Conc 33.5 g/dL (31.5-36.5); Mean Corpuscular Volume 78 fL (80-100); Mean Platelet Volume 9.6 fL (9.1-12.4); NEUTROPHILS ABSOLUTE AUTO 11.96 K/mm3 (1.96-9.15); NEUTROPHILS PERCENT AUTO 78 % (41-73); Platelet Count 426 K/mm3 (150-400); RDW Coefficient Variation 13.2 % (11.7-14.2); RDW Standard Deviation 37.8 fL (35.1-46.3); Red Blood Cell Count 4.15 M/mm3 (4.30-5.90); White Blood Cell Count 15.32 K/mm3 (4.00-11.30)
[2022-07-28 03:04] LABS: C-REACTIVE PROTEIN, EXT RANGE 16.1 mg/dL (0.000-0.300)
[2022-07-28 03:21] LABS: Albumin, Blood 2.1 g/dL (3.4-5.0); Albumin/Globulin Ratio 0.4 (0.8-1.8); Bilirubin, Total 0.3 mg/dL (0.1-1.0); Bun/Creatinine Ratio 25.3 (12.0-20.0); Calcium, Blood 8.3 mg/dL (8.5-10.1); Creatinine, Blood 0.95 mg/dL (0.60-1.20); Globulin, Blood 4.9 g/dL (2.2-4.0); Potassium, Blood 4.2 mmol/L (3.5-5.5)
[2022-07-28 06:08] LABS: BASOPHILS ABSOLUTE AUTO 0.08 K/mm3 (0.00-0.23); BASOPHILS PERCENT AUTO 1 % (0-2); EOSINOPHILS ABSOLUTE AUTO 0.17 K/mm3 (0.00-0.68); EOSINOPHILS PERCENT AUTO 1 % (0-6); Hematocrit 30.8 % (37.0-53.0); Hemoglobin 10.2 g/dL (13.5-17.5); IMMATURE GRAN ABSOLUTE AUTO 0.13 K/mm3 (0.00-0.10); IMMATURE GRAN PERCENT AUTO 1 % (0-1); LYMPHOCYTES ABSOLUTE AUTO 2.41 K/mm3 (0.84-5.20); LYMPHOCYTES PERCENT AUTO 17 % (21-46); MONOCYTES ABSOLUTE AUTO 1.31 K/mm3 (0.16-1.47); MONOCYTES PERCENT AUTO 9 % (4-13); Mean Corpuscular HGB 26.2 pg (26.0-34.0); Mean Corpuscular HGB Conc 33.1 g/dL (31.5-36.5); Mean Corpuscular Volume 79 fL (80-100); Mean Platelet Volume 9.4 fL (9.1-12.4); NEUTROPHILS ABSOLUTE AUTO 10.22 K/mm3 (1.96-9.15); NEUTROPHILS PERCENT AUTO 71 % (41-73); Platelet Count 394 K/mm3 (150-400); RDW Coefficient Variation 13.2 % (11.7-14.2); RDW Standard Deviation 37.6 fL (35.1-46.3); White Blood Cell Count 14.32 K/mm3 (4.00-11.30)
[2022-07-28 06:31] LABS: Albumin, Blood 1.9 g/dL (3.4-5.0); Albumin/Globulin Ratio 0.4 (0.8-1.8); Bilirubin, Total 0.2 mg/dL (0.1-1.0); Bun/Creatinine Ratio 25.9 (12.0-20.0); Calcium, Blood 7.9 mg/dL (8.5-10.1); Creatinine, Blood 0.85 mg/dL (0.60-1.20); Globulin, Blood 4.5 g/dL (2.2-4.0); Potassium, Blood 3.6 mmol/L (3.5-5.5); Total Protein, Blood 6.4 g/dL (6.4-8.2)
[2022-07-28 07:55] VITALS: BP 135/86
[2022-07-28 14:52] VITALS: BP 129/82
--- NOTE | 2022-07-28 16:39 | NUR ---
SHIFT SUMMARY: PATIENT ADMITTED TO MEDICAL UNIT c DX OSTEMYELITIS/SEPSIS TO R FOOT. PATIENT A&OX4. PLEASANT AND COOPERATIVE c CARE. USES CALL LIGHT APPROPRIATELY AND ABLE TO MAKE NEEDS KNOWN. PODIATRY WAS CONSULTED D/T R PLANTAR FOOT CELLULITIS. DR. ANTOINE (STRATEGIC PLANNING ANALYST) CAME AND SAW PATIENT THIS PM. PER DR. ANTOINE TO HAVE PATIENT NPO AFTER MN FOR POSSIBLE SX TO R FOOT TOMORROW 07/29/22. WOUND CX WAS OBTAINED AND SENT TO LAB, AWAITING FOR RESULT. DRESSING CHANGED TO R FOOT. DENIES CP/PRESSURE, N/V, AND SOB. RECEIVED SCHEDULED MEDS PER EMAR. PATIENT USES URINAL IN BED INDEPENDENTLY. VITAL SIGNS REVIEWED. IV TO R AC INFUSING NS AT 75 MLS/HR. BS RANGES [id number]. RECEIVED INSULIN COVERAGE PER EMAR SLIDING SCALE. CALL LIGHT IN REACH.
[2022-07-28 19:31] VITALS: BP 154/82
[2022-07-29] VITALS (17 sets, daily range): BP systolic 92–152; BP diastolic 56–95
[2022-07-29 04:44] LABS: BASOPHILS ABSOLUTE AUTO 0.07 K/mm3 (0.00-0.23); BASOPHILS PERCENT AUTO 1 % (0-2); EOSINOPHILS ABSOLUTE AUTO 0.24 K/mm3 (0.00-0.68); EOSINOPHILS PERCENT AUTO 2 % (0-6); Hematocrit 35.4 % (37.0-53.0); Hemoglobin 11.5 g/dL (13.5-17.5); IMMATURE GRAN ABSOLUTE AUTO 0.18 K/mm3 (0.00-0.10); IMMATURE GRAN PERCENT AUTO 1 % (0-1); LYMPHOCYTES ABSOLUTE AUTO 2.17 K/mm3 (0.84-5.20); LYMPHOCYTES PERCENT AUTO 17 % (21-46); MONOCYTES ABSOLUTE AUTO 0.81 K/mm3 (0.16-1.47); MONOCYTES PERCENT AUTO 7 % (4-13); Mean Corpuscular HGB 25.9 pg (26.0-34.0); Mean Corpuscular HGB Conc 32.5 g/dL (31.5-36.5); Mean Corpuscular Volume 80 fL (80-100); Mean Platelet Volume 9.7 fL (9.1-12.4); NEUTROPHILS ABSOLUTE AUTO 8.99 K/mm3 (1.96-9.15); NEUTROPHILS PERCENT AUTO 72 % (41-73); Platelet Count 435 K/mm3 (150-400); RDW Coefficient Variation 13.4 % (11.7-14.2); RDW Standard Deviation 38.5 fL (35.1-46.3); Red Blood Cell Count 4.44 M/mm3 (4.30-5.90); White Blood Cell Count 12.46 K/mm3 (4.00-11.30)
[2022-07-29 05:01] LABS: Vancomycin, Trough 12.4 ug/mL (5.0-10.0)
[2022-07-29 05:04] LABS: Albumin, Blood 1.9 g/dL (3.4-5.0); Anion Gap 8 mmol/L (6-16); Blood Urea Nitrogen 22 mg/dL (8-24); Bun/Creatinine Ratio 30.1 (12.0-20.0); CO2, Blood 24 mmol/L (21-32); Calcium, Blood 8.4 mg/dL (8.5-10.1); Chloride, Blood 105 mmol/L (98-108); Creatinine, Blood 0.73 mg/dL (0.60-1.20); Glomerular Filtration Rate 104 (60-); Glucose, Blood 267 mg/dL (70-99); Phosphorus, Blood 2.9 mg/dL (2.5-4.9); Potassium, Blood 3.7 mmol/L (3.5-5.5); Sodium, Blood 137 mmol/L (136-145)
--- NOTE | 2022-07-29 19:41 | NUR ---
PT LABILE WITH STAFF. SOME PLEASANT, SOME ATTITUDE. PT MOSTLY FOCUSED ON FOOD ATTHIS TIME. STATES FOOD HERE TERRIBLE, ORDERED HAMBURGERS INSTEAD OF WHAT WAS SERVED. DID GET ICE CREAM BEFORE DINNER CBG AND SUGAR UP A LITTLE EXTRA. EXPLAINED SNACKS AFFECT CBG AND SHOULD WATCH. HAD METATARSALS AMPUTATED ON RT FOOT TODAY. NORCO FOR PAIN CONTROL. PT IS TO BE NON-WT BEARING. DRESSING CDI AT THIS TIME. PT FOOT ELEVATED ON BED WITH PILLOW. VSS. BED IN LOW POSITION, CALL LITE IN REACH, CALLS APPORP
[2022-07-30 00:32] VITALS: BP 137/79
[2022-07-30 02:59] VITALS: BP 120/60
[2022-07-30 06:20] LABS: BASOPHILS ABSOLUTE AUTO 0.08 K/mm3 (0.00-0.23); BASOPHILS PERCENT AUTO 1 % (0-2); EOSINOPHILS ABSOLUTE AUTO 0.11 K/mm3 (0.00-0.68); EOSINOPHILS PERCENT AUTO 1 % (0-6); Hematocrit 34.6 % (37.0-53.0); Hemoglobin 11.3 g/dL (13.5-17.5); IMMATURE GRAN ABSOLUTE AUTO 0.21 K/mm3 (0.00-0.10); IMMATURE GRAN PERCENT AUTO 2 % (0-1); LYMPHOCYTES ABSOLUTE AUTO 2.96 K/mm3 (0.84-5.20); LYMPHOCYTES PERCENT AUTO 22 % (21-46); MONOCYTES PERCENT AUTO 8 % (4-13); Mean Corpuscular HGB 26.3 pg (26.0-34.0); Mean Corpuscular HGB Conc 32.7 g/dL (31.5-36.5); Mean Corpuscular Volume 81 fL (80-100); Mean Platelet Volume 9.7 fL (9.1-12.4); NEUTROPHILS PERCENT AUTO 67 % (41-73); Platelet Count 449 K/mm3 (150-400); RDW Coefficient Variation 13.5 % (11.7-14.2); RDW Standard Deviation 39.4 fL (35.1-46.3); Red Blood Cell Count 4.29 M/mm3 (4.30-5.90); White Blood Cell Count 13.36 K/mm3 (4.00-11.30)
--- NOTE | 2022-07-30 06:33 | NUR ---
Patient removed surgical dressing on R foot despite patient being educated to leave it on till surgeon states ok to remove it. Patient stated he ignored those instructions because he wanted to see if he could still ride. R foot surgical site dressed with new dressing supplies and pt educated again about the increase in risk of infection if he removed the dressing.
[2022-07-30 06:45] LABS: Anion Gap 6 mmol/L (6-16); Blood Urea Nitrogen 25 mg/dL (8-24); Bun/Creatinine Ratio 31.1 (12.0-20.0); CO2, Blood 27 mmol/L (21-32); Calcium, Blood 8.7 mg/dL (8.5-10.1); Chloride, Blood 104 mmol/L (98-108); Glomerular Filtration Rate 101 (60-); Glucose, Blood 302 mg/dL (70-99); Phosphorus, Blood 3.6 mg/dL (2.5-4.9); Potassium, Blood 3.5 mmol/L (3.5-5.5); Sodium, Blood 137 mmol/L (136-145)
[2022-07-30 07:51] VITALS: BP 162/86
--- NOTE | 2022-07-30 09:00 | NUR ---
PT PLEASANT MOSTLY TODAY. A/O X3, SOME OUTBURST NOTED. LABILE MOOD. H/R REG, NO MURMUR NOTED. NO TELE LUNGS CLEAR, RESP EASY, UNLABORED. ON R/A . BT X4 LAST BM YEST PER PT. VOIDS URINAL. NO PAIN NOTED AT THIS TIME. FOOT CDI AT THIS TIME. PT UNWRAPPED LAST ELLY. ZEB RN REWRAPPED. BED IN LOW POSITION, CALL LITE IN REACH, CALLS APPROP
--- NOTE | 2022-07-30 18:25 | NUR ---
PT MOSTLY PLEASANT TODAY. DID HAVE OUTBURST THIS MID-DAY. MAD R/T NOT RECEIVING A DRINK IN TIMELY FASHION. THREW SILVERWARE AT ANOTHER RN. DISCUSSED THIS WITH BATCH UNLOADER. SHE TO ASK CONSERVATION SCIENTIST TO SPEAK TO PT ABOUT ACCEPTABLE BEHAVIOR. MED FOR PAIN THIS MID-DAY. FOOT REMAINED WRAPPED TODAY. NO NEW COMPLAINTS.BED IN LOW POSITION, CALL LITE IN REACH, CALLS DEVIKA
[2022-07-30 19:18] VITALS: BP 141/89
[2022-07-31 02:01] VITALS: BP 151/84
[2022-07-31 04:59] LABS: BASOPHILS ABSOLUTE AUTO 0.11 K/mm3 (0.00-0.23); BASOPHILS PERCENT AUTO 1 % (0-2); EOSINOPHILS ABSOLUTE AUTO 0.32 K/mm3 (0.00-0.68); EOSINOPHILS PERCENT AUTO 3 % (0-6); Hematocrit 36.1 % (37.0-53.0); Hemoglobin 11.9 g/dL (13.5-17.5); IMMATURE GRAN ABSOLUTE AUTO 0.47 K/mm3 (0.00-0.10); IMMATURE GRAN PERCENT AUTO 5 % (0-1); LYMPHOCYTES ABSOLUTE AUTO 2.65 K/mm3 (0.84-5.20); LYMPHOCYTES PERCENT AUTO 26 % (21-46); MONOCYTES ABSOLUTE AUTO 0.83 K/mm3 (0.16-1.47); MONOCYTES PERCENT AUTO 8 % (4-13); Mean Corpuscular HGB 26.2 pg (26.0-34.0); Mean Corpuscular Volume 80 fL (80-100); Mean Platelet Volume 9.3 fL (9.1-12.4); NEUTROPHILS PERCENT AUTO 58 % (41-73); Platelet Count 450 K/mm3 (150-400); RDW Coefficient Variation 13.5 % (11.7-14.2); RDW Standard Deviation 38.8 fL (35.1-46.3); Red Blood Cell Count 4.54 M/mm3 (4.30-5.90); White Blood Cell Count 10.38 K/mm3 (4.00-11.30)
[2022-07-31 05:39] LABS: Anion Gap 6 mmol/L (6-16); Blood Urea Nitrogen 23 mg/dL (8-24); Bun/Creatinine Ratio 31.1 (12.0-20.0); CO2, Blood 24 mmol/L (21-32); Calcium, Blood 8.8 mg/dL (8.5-10.1); Chloride, Blood 102 mmol/L (98-108); Creatinine, Blood 0.74 mg/dL (0.60-1.20); Glomerular Filtration Rate 103 (60-); Glucose, Blood 461 mg/dL (70-99); Phosphorus, Blood 3.4 mg/dL (2.5-4.9); Potassium, Blood 4.1 mmol/L (3.5-5.5); Sodium, Blood 132 mmol/L (136-145)
[2022-07-31 07:51] VITALS: BP 176/90
--- NOTE | 2022-07-31 14:47 | NUR ---
07/31/22 1447 Ana Qureshi VERIFICATIONS: EDIT CHART.
[2022-07-31 16:05] VITALS: BP 138/84
[2022-07-31 19:20] VITALS: BP 127/89
--- NOTE | 2022-07-31 19:27 | NUR ---
SHIFT SUMMARY: PT A&O X4. PT HAS BEEN PLEASANT AND COOPERATIVE THIS SHIFT. PER REPORT, PT HAD BEHAVIORS PREVIOUS DAY SHIFT THROWING ITEMS AT STAFF. PT DID NOT HAVE ANY NEGATIVE BEHAVIORS. REGULAR INSULIN D/C AND CHANGED TO SHORT ACTING INSULIN. SURGEON ARRIVED TO ASSESS PT. PT KEPT DRESSING ON THIS SHIFT. PT HAD PHYSICAL THERAPY EVAL THIS SHIFT. PT RECOMMENDED CRUTCHES OR WHEELCHAIR UPON D/C. PT RECEIVING Q6 ZOSYN AND BACTRIM FOR ABX. PT CONTINENT IN URINAL. R. FOOT NWB. POSSIBLE D/C TOMORROW. CALL LIGHT IN REACH. REPORT GIVEN TO PREPARATOR RN.
[2022-08-01 02:07] VITALS: BP 115/50
[2022-08-01 05:30] LABS: Albumin, Blood 2.1 g/dL (3.4-5.0); Anion Gap 4 mmol/L (6-16); Blood Urea Nitrogen 22 mg/dL (8-24); Bun/Creatinine Ratio 28.8 (12.0-20.0); CO2, Blood 24 mmol/L (21-32); Calcium, Blood 9.1 mg/dL (8.5-10.1); Chloride, Blood 104 mmol/L (98-108); Creatinine, Blood 0.77 mg/dL (0.60-1.20); Glomerular Filtration Rate 102 (60-); Glucose, Blood 293 mg/dL (70-99); Phosphorus, Blood 2.9 mg/dL (2.5-4.9); Potassium, Blood 4.2 mmol/L (3.5-5.5); Sodium, Blood 132 mmol/L (136-145)
--- NOTE | 2022-08-01 06:03 | NUR ---
SHIFT SUMMARY PT SITTING UP IN BED DURING BEDSIDE REPORT- PT REQUESTED WHEEL CHAIR OR CRUTCHES TO GET UP IN HALLWAY- INFORMED PT THAT WE DON'T HAVE ACCESS TO BOTH - INFOMRED PT THAT I WOULD GO LOOK FOR WC WITH DOWNTIME- PT WILL HAVE TO REQUEST CRUTCHES DURING DAY- PT STATED UNDERSTANDING, PT TOOK SCHEDULED HS MEDS WITHOUT PROBLEMS, UNABLE TO LOCATE WC- 0230 PT REPORTED NOT HAVING A BM FOR 4 DAYS, WILL PASS ON IN AM TO GET BOWEL MAINTENANCE MEDS STARTED- PT SLEPT T/O NIGHT
[2022-08-01 08:10] VITALS: BP 124/74
[2022-08-01] MEDS ORDERED: SULTRIDS PO (11:32)
[2022-08-01] MEDS ORDERED: Acetaminophen650 M1 PO (11:32)
[2022-08-01] MEDS ORDERED: TRAM50 PO (11:34)
--- NOTE | 2022-08-01 15:33 | NUR ---
DC- PT PICKED UP BY AMBULANCE FOR TRANSPORT TO [facility]. RN WENT OVER DISCHARGE INSTRUCTIONS W/PT AND EXPLAINED THE IMPORTANCE OF TAKING HIS ANTIBIOTICS AND HIS FOLLOW-UP WITH ALL MD'S. PT VERBALLY AGREED. ALL PAPERWORK SIGNED. PT LEFT WITH ALL BELONGINGS.
== END 2022-08-01 13:51 | disposition home or self-care (01) | DRG 854 ==
LOC: ER 01:26 → MEDS 01:27 → ENPENDDIS 08-01 09:50 → MEDS 08-01 13:51
PROVIDERS: Family Medicine; Podiatrist Foot & Ankle Surgery; Student in an Organized Health Care Education/Training Program; ADMIT Internal Medicine
PROC: 3E03329 Introduction of Other Anti-infective into Peripheral Vein, Percutaneous Approach (ICD-10-PCS; 2022-07-28)
PROC: 0Y6M0ZB Detachment at Right Foot, Partial 2nd Ray, Open Approach (ICD-10-PCS; 2022-07-29)
PROC: 0Y6M0ZC Detachment at Right Foot, Partial 3rd Ray, Open Approach (ICD-10-PCS; 2022-07-29)
PROC: 0Y6M0ZD Detachment at Right Foot, Partial 4th Ray, Open Approach (ICD-10-PCS; 2022-07-29)
PROC: 0Y6M0ZF Detachment at Right Foot, Partial 5th Ray, Open Approach (ICD-10-PCS; 2022-07-29)
PROC: 0Y6M0Z9 Detachment at Right Foot, Partial 1st Ray, Open Approach (ICD-10-PCS; principal; 2022-07-29 07:30)
DX: A41.02 Sepsis due to Methicillin resistant Staphylococcus aureus (principal); E11.52 Type 2 diabetes mellitus with diabetic peripheral angiopathy with gangrene; E87.1 Hypo-osmolality and hyponatremia; M86.8X7 Other osteomyelitis, ankle and foot; L03.115 Cellulitis of right lower limb; L02.611 Cutaneous abscess of right foot; I96 Gangrene, not elsewhere classified; E11.69 Type 2 diabetes mellitus with other specified complication; A40.1 Sepsis due to streptococcus, group B; E88.09 Other disorders of plasma-protein metabolism, not elsewhere classified; D63.8 Anemia in other chronic diseases classified elsewhere; F17.210 Nicotine dependence, cigarettes, uncomplicated; E11.42 Type 2 diabetes mellitus with diabetic polyneuropathy; D75.839 Thrombocytosis, unspecified; L97.519 Non-pressure chronic ulcer of other part of right foot with unspecified severity; F15.10 Other stimulant abuse, uncomplicated; E11.65 Type 2 diabetes mellitus with hyperglycemia; E11.621 Type 2 diabetes mellitus with foot ulcer; Z79.899 Other long term (current) drug therapy; Z79.2 Long term (current) use of antibiotics; Z87.820 Personal history of traumatic brain injury; Z79.4 Long term (current) use of insulin; Z59.00 Homelessness unspecified; Z89.432 Acquired absence of left foot; Z91.148 Patient's other noncompliance with medication regimen for other reason
CPT/HCPCS: 36415; 73620; 80053; 80069; 80202; 82947; 83605; 85025; 85651; 86140; 87070; 87075; 87076; 87077; 87147; 87185; 87186; 87205; 88307; 88311; 96365; 96366; 96375; 97116; 97161; 99285-25; A9270; J0744; J1100; J1650; J1815; J1885; J2250; J2405; J2543; J2704; J3010; J3370; J7030; J7050

== ENCOUNTER 2022-12-03 17:37 | Inpatient (IN) | payer OTHER ==
[~2022-12-03] VITALS: Ht 175.3 cm; Wt 63.7 kg
[~2022-12-03 17:37] MED LIST changes: +Acetaminophen650 M1 PO; +HUMALOG KW100 UNIT/1 SQ; +INSULANI; +SULTRIDS PO; +TRAM50 PO
[2022-12-03 18:43] LABS: BASOPHILS ABSOLUTE AUTO 0.04 K/mm3 (0.00-0.23); BASOPHILS PERCENT AUTO 0 % (0-2); EOSINOPHILS ABSOLUTE AUTO 0.03 K/mm3 (0.00-0.68); EOSINOPHILS PERCENT AUTO 0 % (0-6); Hematocrit 37.1 % (37.0-53.0); Hemoglobin 12.8 g/dL (13.5-17.5); IMMATURE GRAN ABSOLUTE AUTO 0.05 K/mm3 (0.00-0.10); IMMATURE GRAN PERCENT AUTO 0 % (0-1); LYMPHOCYTES PERCENT AUTO 9 % (21-46); MONOCYTES PERCENT AUTO 8 % (4-13); Mean Corpuscular HGB 27.4 pg (26.0-34.0); Mean Corpuscular HGB Conc 34.5 g/dL (31.5-36.5); Mean Corpuscular Volume 79 fL (80-100); Mean Platelet Volume 9.9 fL (9.1-12.4); NEUTROPHILS ABSOLUTE AUTO 11.46 K/mm3 (1.96-9.15); NEUTROPHILS PERCENT AUTO 82 % (41-73); Platelet Count 399 K/mm3 (150-400); RDW Standard Deviation 36.9 fL (35.1-46.3); Red Blood Cell Count 4.67 M/mm3 (4.30-5.90); White Blood Cell Count 13.98 K/mm3 (4.00-11.30)
[2022-12-03 19:07] LABS: Magnesium, Blood 2.1 mg/dL (1.6-2.4)
[2022-12-03 19:11] LABS: Alanine Aminotransfer (ALT/SGP 12 U/L (12-78); Albumin, Blood 2.6 g/dL (3.4-5.0); Albumin/Globulin Ratio 0.5 (0.8-1.8); Alk Phos 173 U/L (50-136); Anion Gap 7 mmol/L (6-16); Aspartate Aminotrans (AST/SGOT 11 U/L (12-37); Bilirubin, Total 0.7 mg/dL (0.1-1.0); Blood Urea Nitrogen 15 mg/dL (8-24); Bun/Creatinine Ratio 20.2 (12.0-20.0); C-REACTIVE PROTEIN, EXT RANGE >19.000 mg/dL (0.000-0.300); CO2, Blood 27 mmol/L (21-32); Calcium, Blood 9.4 mg/dL (8.5-10.1); Chloride, Blood 93 mmol/L (98-108); Creatinine, Blood 0.74 mg/dL (0.60-1.20); Globulin, Blood 5.3 g/dL (2.2-4.0); Glomerular Filtration Rate 103 (60-); Glucose, Blood 347 mg/dL (70-99); Potassium, Blood 4.1 mmol/L (3.5-5.5); Sodium, Blood 127 mmol/L (136-145); Total Protein, Blood 7.9 g/dL (6.4-8.2)
[2022-12-03 23:44] VITALS: BP 130/98
[2022-12-04 05:13] VITALS: BP 141/79
[2022-12-04 05:33] LABS: BASOPHILS ABSOLUTE AUTO 0.04 K/mm3 (0.00-0.23); BASOPHILS PERCENT AUTO 0 % (0-2); EOSINOPHILS ABSOLUTE AUTO 0.14 K/mm3 (0.00-0.68); EOSINOPHILS PERCENT AUTO 1 % (0-6); Hematocrit 34.7 % (37.0-53.0); Hemoglobin 11.8 g/dL (13.5-17.5); IMMATURE GRAN ABSOLUTE AUTO 0.03 K/mm3 (0.00-0.10); IMMATURE GRAN PERCENT AUTO 0 % (0-1); LYMPHOCYTES ABSOLUTE AUTO 1.44 K/mm3 (0.84-5.20); LYMPHOCYTES PERCENT AUTO 13 % (21-46); MONOCYTES ABSOLUTE AUTO 0.88 K/mm3 (0.16-1.47); MONOCYTES PERCENT AUTO 8 % (4-13); Mean Corpuscular HGB 27.4 pg (26.0-34.0); Mean Corpuscular Volume 81 fL (80-100); Mean Platelet Volume 10.4 fL (9.1-12.4); NEUTROPHILS ABSOLUTE AUTO 8.61 K/mm3 (1.96-9.15); NEUTROPHILS PERCENT AUTO 77 % (41-73); Platelet Count 380 K/mm3 (150-400); RDW Standard Deviation 37.7 fL (35.1-46.3); Red Blood Cell Count 4.31 M/mm3 (4.30-5.90); White Blood Cell Count 11.14 K/mm3 (4.00-11.30)
[2022-12-04 06:06] LABS: Albumin/Globulin Ratio 0.4 (0.8-1.8); Bilirubin, Total 0.3 mg/dL (0.1-1.0); Bun/Creatinine Ratio 26.4 (12.0-20.0); Calcium, Blood 8.6 mg/dL (8.5-10.1); Creatinine, Blood 0.83 mg/dL (0.60-1.20); Globulin, Blood 4.7 g/dL (2.2-4.0); Total Protein, Blood 6.7 g/dL (6.4-8.2)
[2022-12-04 06:13] LABS: International Normalized Ratio 0.96; Prothrombin Time Results 10.1 Sec (9.7-11.5)
--- NOTE | 2022-12-04 06:31 | NUR ---
PT ADMITTED AFTER 2300, VSS ON RA, PLEASANT, AMBULATES WITH PAIN, PREFERS TO STAY IN BED TO USE URINAL DUE TO PAINFUL R FOOT. SCANT OUTPUT FROM DIABETIC WOUND ON FOOT. AMPUTATION OF ALL R TOES AND 3 L FOOT TOES. SKIN CHECK COMPLETED WITH NATHAN Mcgarry, PT HAS SCAB TO R ELBOW, DIABETIC ULCERS TO BILATERAL HEELS AND R FOOT. NO PRESSURE ULCERS PRESENT. BLOOD SUGARS ARE 300'S-400'S. FIRE SAFETY REVIEWED. PER REPORT AND PER PATIENT, PROCESS EXCELLENCE MANAGER AND VAPE PEN BEING HELD BY SECURITY.
[2022-12-04 07:33] VITALS: BP 120/72
[2022-12-04 15:36] VITALS: BP 138/77
--- NOTE | 2022-12-04 16:22 | NUR ---
SHIFT SUMMARY PATIENT IS ALERT AND ORIENTED. PATIENT HAS HAD NO ACUTE EVENTS THIS SHIFT. PATIENT IS ADMITTED FOR CELLULITIS. DR AGUILAR HAS SEEN PATIENT AND IS PLANNING ON DOING PROCEDURE TOMORROW AFTERNOON. PATIENT TO REMAIN NPO AFTER MIDNIGHT. WOUND VAC POSSIBLE AFTER PROCEDURE. PATIENT HAS NOT REQUIRED ANY PAIN MEDICATION THIS SHIFT. PATIENT HAS NOT COMPLAINED OF SOB, NAUSEA OR VOMITTING THIS SHIFT. VITAL SIGNS REVIEWED. BED IN LOCKED AND LOWEST POSITION. CALL LIGHT IN PLACE. WILL MONITOR UNTIL SHIFT CHANGE.
[2022-12-04 20:16] VITALS: BP 153/83
[2022-12-05] VITALS (18 sets, daily range): BP systolic 99–158; BP diastolic 57–87
--- NOTE | 2022-12-05 06:42 | NUR ---
NO ACUTE CHANGES NOTED. PAINFUL RLE WOUND WITH PENDING I&D TODAY. PT WILL BE NPO AFTER BREAKFAST. AOX4, VSS ON RA, CBG'S HAVE BEEN LOWER WITH HIGHER SCALE OF HUMALOG, UP AD NORAH BUT FREQUENTLY CHOOSES TO USE URINAL INSTEAD OF WALKING DUE TO R FOOT PAIN. FIRE SAFETY REVIEWED.
[2022-12-05 08:53] LABS: Vancomycin, Trough 13.9 ug/mL (5.0-10.0)
--- NOTE | 2022-12-05 16:00 | NUR ---
DAY SURGERY HERE TO PICK PT UP. TO SURGERY VIA W/C.
--- NOTE | 2022-12-05 17:02 | NUR ---
12/05/22 1702 Candice Emerson NO PREOP ANTIBIOTICS ORDERED PER PATIENT IS ON SCHEDULED ANTIBIOTICS.
--- NOTE | 2022-12-05 18:07 | NUR ---
SHIFT SUMMARY PT SLEEPING MOST OF MORNING AND EARLY AFTERNOON. MEDICATED FOR PAIN THIS MORNING BUT STATED HE FELT THE WRAP WAS REALLY TIGHT AND ASKED FOR IT TO BE LOOSENED. TOLERATED NPO STATUS FOR THE SURGERY.
--- NOTE | 2022-12-05 20:50 | NUR ---
NOTE PATIENT IRRITABLE. PATIENT REQUESTING APURVA PERALTA AND ERVIN, EXPLAINED TO PATIENT THAT HIS BLOOD GLUCOSE IS ELEVATED SEE LABS AND THAT RIGHT NOW THOSE WOULD NOT BE APPROPRIATE SNACK, PATIENT BECAME AGITATED AND STATED " I SHOULD JUST GO TO [facility] BECAUSE I GET TAKEN CARE OF THERE". EXPLAINED TO PATIENT THAT WE WANT TO PREVENT HIS BLOOD SUGAR FROM BEING HIGH TO HELP WITH HEALING.
--- NOTE | 2022-12-05 22:00 | NUR ---
BLOOD GLUCOSE PATIENTS BLOOD GLUCOSE HAS BEEN ELEVATED, PATIENT HAS HAD MULTIPLE SNACKS.
[2022-12-06 02:12] VITALS: BP 142/82
--- NOTE | 2022-12-06 05:17 | NUR ---
SHIFT SUMMARY PT IS ALERT AND ORIENTED TO PERSON, PLACE, SELF, AND SITUATION. PT MOOD LABILE DURING THE BEGINNING OF SHIFT, YESSENIA Negron RN WAS ABLE TO TALK WITH PATIENT ABOUT CURRENT SITUATION AND BEHAVIOR; MOOD IMPROVED T/O REST OF SHIFT AT THIS TIME. PT IS ABLE TO MAKE HIS NEEDS KNOW AND IS COOPERATIVE WITH CARE. PROVIDED PT WITH PAPER AND PEN TO DRAW PER REQUEST. PT HAS BEEN AWAKE T/O MOST OF SHIFT. RESPIRATIONS HAVE BEEN EVEN AND UNLABORED. PT C/O BLE PAIN WITH PAIN WORSE IN RLE; PAIN ASSESSED AND MEDICATED PER EMAR. PT DENIES CHEST PAIN OR PRESSURE. PT HAS REQUESTED SNACKS AND COFFEE T/O SHIFT. NO S/S OF DISTRESS AT THIS TIME. BED IS LOCKED IN THE LOWEST POSITION, CALL LIGHT WITHIN REACH.
[2022-12-06 06:16] LABS: Hematocrit 34.2 % (37.0-53.0); Hemoglobin 11.5 g/dL (13.5-17.5); Mean Corpuscular HGB 27.2 pg (26.0-34.0); Mean Corpuscular HGB Conc 33.6 g/dL (31.5-36.5); Mean Corpuscular Volume 81 fL (80-100); Mean Platelet Volume 10.5 fL (9.1-12.4); Platelet Count 412 K/mm3 (150-400); RDW Coefficient Variation 12.8 % (11.7-14.2); RDW Standard Deviation 37.4 fL (35.1-46.3); Red Blood Cell Count 4.23 M/mm3 (4.30-5.90)
[2022-12-06 06:39] LABS: Bun/Creatinine Ratio 27.6 (12.0-20.0); Calcium, Blood 9.1 mg/dL (8.5-10.1); Creatinine, Blood 0.72 mg/dL (0.60-1.20); Potassium, Blood 4.3 mmol/L (3.5-5.5)
[2022-12-06 07:12] VITALS: BP 140/76
--- NOTE | 2022-12-06 10:30 | NUR ---
PT FOUND A TICK ON HIS L UPPER INNER ARM WHICH WAS REMOVED BY PT IN THE PRESENCE OF . REPORTS HE REMOVED IT COUNTERCLOCKWISE TO KEEP HEAD INTACT. TICK FOUND IN MORNING MEAL BOWL AND SENT TO LAB FOR IDENTIFICATION. SMALL OPEN SPOT NOTED TO SITE PT REMOVED TICK. SHOWER TAKEN SOON AFTER AND SITE CLEANSED.
[2022-12-06 15:57] VITALS: BP 145/81
--- NOTE | 2022-12-06 17:29 | NUR ---
SHIFT SUMMARY PT TOOK A SHOWER TODAY. DRESSINGS REMAINED IN PLACE AND COVERED FOR PROTECTION. MEDICATED FOR PAIN REGULARLY. COOPERATIVE AND BEHAVING APPROPRIATELY. NO FEVER.
[2022-12-06 18:04] LABS: Vancomycin, Trough 18.2 ug/mL (5.0-10.0)
[2022-12-06 20:01] VITALS: BP 145/85
--- NOTE | 2022-12-06 23:30 | NUR ---
FOOT DRESSING WALKED BY PATIENTS ROOM AND PATIENT HAD DRESSING FROM HIS RIGHT FOOT REMOVED AND HIS FOOT IN THE AIR. ASKED PATIENT WHY HE REMOVED HIS DRESSING PATIENT STATED "IT WAS TOO TIGHT SO I TOOK IT OFF". WOUND CLEANED WITH WOUND TOWER HOIST OPERATOR, AND DRIED; APPLIED DRY GAUZE TO OPEN AREA, WRAPPED WITH GUAZE WRAP, AND CCOVERED WITH WITH AN ELASTIC BANDAGE. EDUCATED PATIENT ON THE IMPORTANCE OF KEEPING ON THE BANDAGES TO HIS SURGICAL SITES ON BOTH OF HIS FEET. PATIENT VERBALIZED UNDERSTANDING.
--- NOTE | 2022-12-07 04:08 | NUR ---
SHIFT SUMMARY PT ALERT AND ORIENTED TO PERSON, PLACE, SITUATION, SELF, PT MOOD HAS BEEN PLEASANT T/O SHIFT. PT IS COOPERATIVE WITH CARE AND ABLE TO MAKE NEEDS KNOWN. THIS SHIFT PT PULLED IV IN LEFT FORARM OUT; NEW IV PLACED BY PHUC Dennis RN. PT REMOVED DRESSING FROM RT FOOT; SEE NOTE "FOOT DRESSING". PT UP INDEPENDENTLY IN ROOM TO THE BATHROOM. PAIN ASSESSED AND MEDICATED PER EMAR. PT DENIES CHEST PAIN OR PRESSURE. BED IS LOCKED AND IN THE LOWEST POSITION, CALL LIGHT WITHIN REACH. NO S/S OF DISTRESS AT THIS TIME.
[2022-12-07 05:13] VITALS: BP 142/81
[2022-12-07 07:19] VITALS: BP 160/83
[2022-12-07 16:47] VITALS: BP 127/69
--- NOTE | 2022-12-07 17:12 | NUR ---
SHIFT SUMMARY PT SLEEPING MORE TODAY THAN YESTERDAY. UP TO BATHROOM INDEPENDENTLY. MEDICATED ONCE FOR PAIN. NO S/S OF INFECTION OR REDNESS TO L INNER ARM FROM TICK YESTERDAY. DR. AGUILAR IN TO VISIT PT AND DRESSING REMOVED. REPORTED PT LIKELY TO NEED 6 WEEKS OF ANTIBIOTICS.
--- NOTE | 2022-12-07 17:46 | NUR ---
PT THREATENING TO GO OUTSIDE AND SMOKE. OFFERED NICOTINE PATCH OR GUM AND PT SAID NO. HE SAID THE ONLY THING THAT WILL HELP HIM IS A CIGARETTE. EXPLAINED SMOKING POLICY OF HOSPITAL AND NO SMOKING ON PROPERTY. PT SAID WHO GIVES THE RIGHT TO TELL A GROWN MAN WHAT TO DO. NO FURTHER DISCUSSION AT THIS TIME. STARTED PTS ANTIBIOTIC AND DRESSINGS APPLIED TO FEET.
--- NOTE | 2022-12-07 19:25 | NUR ---
ROUNDING PATIENT AGITATED THAT HE IS NOT ABLE TO GO OUT AND SMOKE, STATED THAT "YOU DONT GIVE A SHIT, HE IS A DAMN ADULT AND SHOULD BE ABLE TO DO WHAT HE WANTS TO DO". LET PATIENT KNOW THAT WE ARE A NON-SMOKING FACILITY AND THAT IT IS HOSPITAL POLICY AND THAT WE COULD GET HIM A NICOTINE PATCH. PATIENT STATED "HE WANTS A CIGARETTE NOT A DAMN PATCH".
[2022-12-07 19:54] VITALS: BP 146/78
[2022-12-08 03:26] VITALS: BP 136/79
--- NOTE | 2022-12-08 04:32 | NUR ---
SHIFT SUMMARY PATIENT IS ALERT AND ORIENTED TO PERSON, PLACE, SELF, AND SITUATION. PATIENT OF LABILE AFFECT WITH AGGITATION EARLY IN SHIFT, HOWEVER COOPERATIVE WITH CARE. PATIENT SLEEPING ON AND OFF WITH REPIRATIONS EQUAL AND UNLABORED T/O SHIFT. PAIN ASSESSED AND TREATED PER EMAR. PATIENT DENIES CHEST PAIN OR PRESSURE AT THIS TIME. PATIENT UP INDEPENDENTLY IN ROOM TO BATHROOM. PATIENT IS ABLE TO MAKE HIS NEEDS KNOWN. BED IS LOCKED AND IN THE LOWEST POSITION, CALL LIGHT WITHIN REACH. NO S/S OF DISTRESS ST THIS TIME.
[2022-12-08 05:53] LABS: Hematocrit 37.8 % (37.0-53.0); Hemoglobin 12.8 g/dL (13.5-17.5); Mean Corpuscular HGB Conc 33.9 g/dL (31.5-36.5); Mean Corpuscular Volume 80 fL (80-100); Mean Platelet Volume 9.4 fL (9.1-12.4); Platelet Count 495 K/mm3 (150-400); RDW Coefficient Variation 12.9 % (11.7-14.2); RDW Standard Deviation 37.3 fL (35.1-46.3); Red Blood Cell Count 4.74 M/mm3 (4.30-5.90); White Blood Cell Count 10.94 K/mm3 (4.00-11.30)
[2022-12-08 06:21] LABS: Anion Gap 8 mmol/L (6-16); Blood Urea Nitrogen 23 mg/dL (8-24); CO2, Blood 25 mmol/L (21-32); Calcium, Blood 8.7 mg/dL (8.5-10.1); Chloride, Blood 101 mmol/L (98-108); Creatinine, Blood 0.68 mg/dL (0.60-1.20); Glomerular Filtration Rate 106 (60-); Glucose, Blood 284 mg/dL (70-99); Phosphorus, Blood 3.9 mg/dL (2.5-4.9); Potassium, Blood 3.9 mmol/L (3.5-5.5); Sodium, Blood 134 mmol/L (136-145)
[2022-12-08 07:17] VITALS: BP 137/92
[2022-12-08 09:49] LABS: Vancomycin, Trough 18.7 ug/mL (5.0-10.0)
[2022-12-08 14:55] VITALS: BP 126/75
--- NOTE | 2022-12-08 17:49 | NUR ---
SUMMARY- PT IRRITABLE THIS SHIFT, BUT COOPERATIVE W/CARE. WOUND VAC PLACED TO RIGHT FOOT THIS SHIFT. PAIN WELL CONTROLLED W/OXY THIS SHIFT PER EMAR. WBAT TO THE BATHROOM/BSC.
[2022-12-08 20:47] VITALS: BP 105/62
[2022-12-09 01:28] VITALS: BP 104/61
--- NOTE | 2022-12-09 06:32 | NUR ---
Shift Summary Wound vac dressing C/D/I with no leaks. No discharge in wound vac this shift. Pt c/o 11/09 RLE pain, medicated per emar. Slept well t/o most of the night. Pt uses urinal and BSC independently. Cooperative with care.
[2022-12-09 07:38] VITALS: BP 116/70
--- NOTE | 2022-12-09 11:45 | NUR ---
PT DISCHARGE. SISTER AT BEDSIDE AND TRANSPORTING HOME. GAVE D/C INSTRUCTIONS. PT TO F/U WITH PCP ON SUNDAY. NO NEW MEDICATION. ED OF URINE RETENTION AND HYPERKALEMIA.
[2022-12-09 15:28] VITALS: BP 121/69
--- NOTE | 2022-12-09 18:30 | NUR ---
SHIFT SUMMARY NO ACUTE EVENTS. A/OX4. WOUND VAC IN PLACE TO RT LE; NO DRAINAGE THIS SHIFT. DRESSING TO LEFT FOOT CDI--NOT CHANGES THIS SHIFT. PT CONT TO C/O 11/09 PAIN. PT AGITATES EASILY AND IMPULSIVE BEHAVIOR. ABLE TO MAKE NEEDS KNOWN.
[2022-12-09 21:02] VITALS: BP 126/67
[2022-12-10 02:22] VITALS: BP 135/67
--- NOTE | 2022-12-10 04:57 | NUR ---
SHIFT SUMMARY NEW IV PLACED TO R WRIST. PT COOPERATIVE & PLEASANT T/O SHIFT. PT UP DRAWING MOST OF THE NIGHT. MEDICATED FOR PAIN TWICE THIS SHIFT. SEE EMAR. PT STATES NOTHING SEEMS TO HELP HIS PAIN. REFUSED TYLENOL AT START OF SHIFT. WOUND VAC TO R FOOT INTACT AND NO LEAKS NOTED. NO OTHER ACUTE CHANGES IN ASSESSMENT AT THIS TIME. VS REVIEWED. CALL LIGHT IN REACH.
[2022-12-10 06:02] LABS: Bun/Creatinine Ratio 35.6 (12.0-20.0); Calcium, Blood 8.7 mg/dL (8.5-10.1); Creatinine, Blood 0.76 mg/dL (0.60-1.20); Potassium, Blood 4.4 mmol/L (3.5-5.5)
[2022-12-10 07:49] VITALS: BP 139/79
--- NOTE | 2022-12-10 12:49 | NUR ---
AM NOTE: ASSUMED CARE OF PT THIS AM APPROX 0715. PT HAS BEEN A&Ox4, COOPERATIVE W/CARE, ANSWERS QUESTIONS APPROPRIATELY. PT EXPRESSES CONCERN OVER GOING HOME SO HE CAN CARE FOR HIS DOG, HAS BEEN RECEPTIVE TO REDIRECTION AND TROUBLESHOOTING SO FAR. PT DENIES SOB, DENIES CP. WOUND CARE ORDERS REVIEWED, WOUND VAC TO RT FOOT AND DRESSING TO L HEEL ARE BOTH SET TO BE CHANGED 12/11/22, ALL DRESSINGS ARE C/D/I, NO DRAINAGE FROM WOUND VAC. PT DENIES NEED FOR PAIN MEDICATION SO FAR THIS SHIFT. WILL CONTINUE TO MONITOR AND TREAT ACCORDINGLY UNTIL CHANGE OF SHIFT.
[2022-12-10 16:02] VITALS: BP 144/77
--- NOTE | 2022-12-10 18:52 | NUR ---
SHIFT SUMMARY: NO ACUTE CHANGES TO PT CONDITION SINCE AM NOTE. PT CONTINUES COOPERATIVE W/CARE, ABLE TO MAKE NEEDS KNOWN. ALL ASSESSMENTS FOR IGNITABLE SOURCES HAVE BEEN NEGATIVE. AT THIS TIME, PT IS RESTING IN BED W/MEAL TRAY. CALL LIGHT WITHIN REACH.
[2022-12-10 19:33] VITALS: BP 123/82
--- NOTE | 2022-12-10 21:17 | NUR ---
AMA PATIENT FULLY DRESSED IN HALLWAY ASKING TO LEAVE. BELONGINGS WITH PATIENT. PATIENT HAD DICONNECTED WOUND VAC. PATIENT EDUCATED ON RISKS OF LEAVING, WORSENING INFECTION, LOSS OF LIMB, , ETC. PATIENT VERBALIZED UNDERSTANDING. PATIENT STILL ADAMENT ABOUT LEAVING. PATIENT STATES HE IS VERY WORRIED ABOUT HIS DOG. PATIENT CONTACTED SOMEONE TO COME GET HIM. CHARGE NURSE NOTIFIED. DR. HUA NOTIFIED. PATIENT SIGNED AMA FORM. IV REMOVED WITHOUT DIFFICULTY.
--- NOTE | 2022-12-10 22:09 | NUR ---
BELONGINGS PATIENT PACKED OWN BELONGINGS UPON LEAVING. PATIENT STATES A RED BIC SYNTHETIC PLASTERER AND SILVER VAPE WERE TAKEN AND LOCKED UP. THIS RN CHECKED ALL LOCKED AREAS IN PATIENT ROOM AND OUTSIDE ROOM, NO ITEMS FOUND. HEALTH INFORMATICS INSTRUCTOR WITH THIS RN AND CONFIRMED NO ITEMS FOUND. SECURITY AND ER CALLED, STATED THEY WOULD LOOK FOR ITEMS. PATIENT STATED HE WOULD GO TO SECURITY INSTEAD OF WAITING FOR CALL BACK. PATIENT INSTRUCTED ON WHERE SECURITY WAS.
== END 2022-12-10 20:43 | disposition left against medical advice (07) | DRG 463 ==
LOC: ER 17:37 → MEDS 22:21
PROVIDERS: Internal Medicine; Nurse Practitioner Acute Care; Podiatrist; Student in an Organized Health Care Education/Training Program; ADMIT Internal Medicine
PROC: 0JBR0ZZ Excision of Left Foot Subcutaneous Tissue and Fascia, Open Approach (ICD-10-PCS; 2022-12-05)
PROC: 0QBN0ZZ Excision of Right Metatarsal, Open Approach (ICD-10-PCS; principal; 2022-12-05 16:30)
DX: T87.53 Necrosis of amputation stump, right lower extremity (principal); A41.02 Sepsis due to Methicillin resistant Staphylococcus aureus; D61.818 Other pancytopenia; L03.115 Cellulitis of right lower limb; M86.8X7 Other osteomyelitis, ankle and foot; E87.1 Hypo-osmolality and hyponatremia; L97.422 Non-pressure chronic ulcer of left heel and midfoot with fat layer exposed; I96 Gangrene, not elsewhere classified; T87.43 Infection of amputation stump, right lower extremity; L97.514 Non-pressure chronic ulcer of other part of right foot with necrosis of bone; E86.1 Hypovolemia; E11.621 Type 2 diabetes mellitus with foot ulcer; E11.42 Type 2 diabetes mellitus with diabetic polyneuropathy; F15.11 Other stimulant abuse, in remission; F17.210 Nicotine dependence, cigarettes, uncomplicated; E11.65 Type 2 diabetes mellitus with hyperglycemia; B95.1 Streptococcus, group B, as the cause of diseases classified elsewhere; Y83.5 Amputation of limb(s) as the cause of abnormal reaction of the patient, or of later complication, without mention of misadventure at the time of the procedure; E11.69 Type 2 diabetes mellitus with other specified complication; Z87.820 Personal history of traumatic brain injury; Z89.431 Acquired absence of right foot; Z89.422 Acquired absence of other left toe(s); Z79.4 Long term (current) use of insulin; Z79.899 Other long term (current) drug therapy; Z59.00 Homelessness unspecified; Z53.29 Procedure and treatment not carried out because of patient's decision for other reasons; Z86.19 Personal history of other infectious and parasitic diseases; Z91.148 Patient's other noncompliance with medication regimen for other reason
CPT/HCPCS: 36415; 73630; 80048; 80053; 80069; 80202; 82947; 83605; 83735; 85025; 85027; 85610; 85651; 86140; 87040; 87070; 87071; 87075; 87077; 87147; 87168; 87184; 87186; 87205; 93005; 93010; 96365; 96366; 96367; 96375; 99285-25; A9270; J0692; J0696; J1100; J1650; J1815; J1885; J2001; J2250; J2270; J2371; J2405; J2704; J3010; J3370; J7030; J7050; J7120

== ENCOUNTER 2023-01-25 10:13 | Emergency (ER) | payer OTHER ==
[~2023-01-25] VITALS: Ht 175.3 cm; Wt 65.8 kg
[2023-01-25 11:36] LABS: BASOPHILS ABSOLUTE AUTO 0.06 K/mm3 (0.00-0.23); BASOPHILS PERCENT AUTO 1 % (0-2); EOSINOPHILS ABSOLUTE AUTO 0.35 K/mm3 (0.00-0.68); EOSINOPHILS PERCENT AUTO 6 % (0-6); Hematocrit 41.8 % (37.0-53.0); Hemoglobin 13.9 g/dL (13.5-17.5); IMMATURE GRAN ABSOLUTE AUTO 0.02 K/mm3 (0.00-0.10); IMMATURE GRAN PERCENT AUTO 0 % (0-1); LYMPHOCYTES ABSOLUTE AUTO 1.94 K/mm3 (0.84-5.20); LYMPHOCYTES PERCENT AUTO 34 % (21-46); MONOCYTES ABSOLUTE AUTO 0.55 K/mm3 (0.16-1.47); MONOCYTES PERCENT AUTO 10 % (4-13); Mean Corpuscular HGB 27.1 pg (26.0-34.0); Mean Corpuscular HGB Conc 33.3 g/dL (31.5-36.5); Mean Corpuscular Volume 82 fL (80-100); NEUTROPHILS ABSOLUTE AUTO 2.86 K/mm3 (1.96-9.15); NEUTROPHILS PERCENT AUTO 50 % (41-73); RDW Coefficient Variation 13.9 % (11.7-14.2); RDW Standard Deviation 41.2 fL (35.1-46.3); Red Blood Cell Count 5.13 M/mm3 (4.30-5.90); White Blood Cell Count 5.78 K/mm3 (4.00-11.30)
[2023-01-25 11:57] LABS: Mean Platelet Volume 10.6 fL (9.1-12.4); Platelet Count 430 K/mm3 (150-400)
[2023-01-25 12:11] LABS: Albumin, Blood 3.3 g/dL (3.4-5.0); Albumin/Globulin Ratio 0.6 (0.8-1.8); Bilirubin, Total 0.5 mg/dL (0.1-1.0); Bun/Creatinine Ratio 14.3 (12.0-20.0); Calcium, Blood 9.4 mg/dL (8.5-10.1); Creatinine, Blood 0.77 mg/dL (0.60-1.20); Globulin, Blood 5.2 g/dL (2.2-4.0); Potassium, Blood 4.7 mmol/L (3.5-5.5); Total Protein, Blood 8.5 g/dL (6.4-8.2)
[2023-01-25 14:15] VITALS: BP 149/100
[2023-01-25] MEDS ORDERED: AMOCLA875 PO (15:37)
[2023-01-25] MEDS ORDERED: GABA300 PO (15:37)
[2023-01-25] MEDS ORDERED: METF500 PO (15:54)
== END 2023-01-25 15:44 | disposition home or self-care (01) ==
LOC: ER 10:13
PROVIDERS: Physician Assistant
DX: L03.012 Cellulitis of left finger (principal); L02.512 Cutaneous abscess of left hand; M79.671 Pain in right foot; M79.672 Pain in left foot; Z59.00 Homelessness unspecified; M79.2 Neuralgia and neuritis, unspecified; Z79.899 Other long term (current) drug therapy; Z79.4 Long term (current) use of insulin; F17.210 Nicotine dependence, cigarettes, uncomplicated
CPT/HCPCS: 10060; 73140; 73630; 80053; 85025; 85651; 86140; 96374-59; 99283-25; A9270; J1885; J7030

== ENCOUNTER 2023-02-19 14:09 | Inpatient (IN) | payer OTHER ==
[~2023-02-19] VITALS: Ht 175.3 cm; Wt 63.7 kg
[~2023-02-19 14:09] MED LIST changes: +GABA300 PO; +METF500 PO
[2023-02-19 15:06] LABS: BASOPHILS ABSOLUTE AUTO 0.05 K/mm3 (0.00-0.23); BASOPHILS PERCENT AUTO 0 % (0-2); EOSINOPHILS ABSOLUTE AUTO 0.29 K/mm3 (0.00-0.68); EOSINOPHILS PERCENT AUTO 2 % (0-6); Hematocrit 38.6 % (37.0-53.0); Hemoglobin 13.1 g/dL (13.5-17.5); IMMATURE GRAN ABSOLUTE AUTO 0.05 K/mm3 (0.00-0.10); IMMATURE GRAN PERCENT AUTO 0 % (0-1); LYMPHOCYTES ABSOLUTE AUTO 1.66 K/mm3 (0.84-5.20); LYMPHOCYTES PERCENT AUTO 14 % (21-46); MONOCYTES ABSOLUTE AUTO 0.91 K/mm3 (0.16-1.47); MONOCYTES PERCENT AUTO 8 % (4-13); Mean Corpuscular HGB 27.2 pg (26.0-34.0); Mean Corpuscular HGB Conc 33.9 g/dL (31.5-36.5); Mean Corpuscular Volume 80 fL (80-100); Mean Platelet Volume 10.1 fL (9.1-12.4); NEUTROPHILS ABSOLUTE AUTO 8.93 K/mm3 (1.96-9.15); NEUTROPHILS PERCENT AUTO 75 % (41-73); Platelet Count 365 K/mm3 (150-400); RDW Coefficient Variation 14.1 % (11.7-14.2); RDW Standard Deviation 41.2 fL (35.1-46.3); Red Blood Cell Count 4.81 M/mm3 (4.30-5.90); White Blood Cell Count 11.89 K/mm3 (4.00-11.30)
[2023-02-19 15:39] LABS: Albumin/Globulin Ratio 0.6 (0.8-1.8); Bilirubin, Total 0.3 mg/dL (0.1-1.0); Bun/Creatinine Ratio 19.4 (12.0-20.0); Calcium, Blood 8.7 mg/dL (8.5-10.1); Creatinine, Blood 0.88 mg/dL (0.60-1.20)
[2023-02-19 20:21] VITALS: BP 127/80
--- NOTE | 2023-02-20 04:27 | NUR ---
NOC SHIFT SUMMARY: PT ADMITTED WITH HYPONATREMIA. HE ALSO HAS FOOT ULCERS TO BILATERAL FEET. CLINDAMYCIN IN PLACE. ALERT AND ORIENTED X4. NO COMPLAINTS OF PAIN. INDEPENDENT IN ROOM. TOOK A SHOWER LAST NIGHT. NORMAL SALINE AT 100 ML/HR FOR 2 BAGS. PICTURES OF FEET IN CHART. CALL LIGHT WITHIN REACH. BED ALARM IN PLACE.
[2023-02-20 05:40] LABS: BASOPHILS ABSOLUTE AUTO 0.08 K/mm3 (0.00-0.23); BASOPHILS PERCENT AUTO 1 % (0-2); EOSINOPHILS PERCENT AUTO 7 % (0-6); Hematocrit 38.8 % (37.0-53.0); Hemoglobin 12.8 g/dL (13.5-17.5); IMMATURE GRAN ABSOLUTE AUTO 0.02 K/mm3 (0.00-0.10); IMMATURE GRAN PERCENT AUTO 0 % (0-1); LYMPHOCYTES ABSOLUTE AUTO 2.08 K/mm3 (0.84-5.20); LYMPHOCYTES PERCENT AUTO 25 % (21-46); MONOCYTES ABSOLUTE AUTO 0.63 K/mm3 (0.16-1.47); MONOCYTES PERCENT AUTO 8 % (4-13); Mean Corpuscular HGB 26.8 pg (26.0-34.0); Mean Corpuscular Volume 81 fL (80-100); Mean Platelet Volume 10.1 fL (9.1-12.4); NEUTROPHILS ABSOLUTE AUTO 4.86 K/mm3 (1.96-9.15); NEUTROPHILS PERCENT AUTO 59 % (41-73); Platelet Count 330 K/mm3 (150-400); RDW Coefficient Variation 14.1 % (11.7-14.2); RDW Standard Deviation 41.9 fL (35.1-46.3); Red Blood Cell Count 4.78 M/mm3 (4.30-5.90); White Blood Cell Count 8.27 K/mm3 (4.00-11.30)
[2023-02-20 06:11] LABS: Calcium, Blood 8.6 mg/dL (8.5-10.1); Creatinine, Blood 0.9 mg/dL (0.60-1.20); Potassium, Blood 4.1 mmol/L (3.5-5.5)
[2023-02-20 07:52] VITALS: BP 144/87
[2023-02-20 16:24] VITALS: BP 136/71
[2023-02-20 19:17] VITALS: BP 133/84
[2023-02-21] VITALS (10 sets, daily range): BP systolic 86–159; BP diastolic 55–98
[2023-02-21 05:09] LABS: Hematocrit 40.3 % (37.0-53.0); Hemoglobin 13.4 g/dL (13.5-17.5); Mean Corpuscular HGB 26.8 pg (26.0-34.0); Mean Corpuscular HGB Conc 33.3 g/dL (31.5-36.5); Mean Corpuscular Volume 81 fL (80-100); Mean Platelet Volume 10.1 fL (9.1-12.4); Platelet Count 365 K/mm3 (150-400); RDW Coefficient Variation 14.2 % (11.7-14.2); RDW Standard Deviation 41.9 fL (35.1-46.3)
[2023-02-21 05:33] LABS: Bun/Creatinine Ratio 29.4 (12.0-20.0); Calcium, Blood 8.8 mg/dL (8.5-10.1); Creatinine, Blood 0.72 mg/dL (0.60-1.20); Potassium, Blood 4.1 mmol/L (3.5-5.5)
--- NOTE | 2023-02-21 06:26 | NUR ---
NOC SHIFT SUMMARY: NEW IV IN LEFT FOREARM. SALINE LOCKED. SURGERY TODAY FOR RIGHT FOOT. PATIENT HAS BEEN NPO SINCE LAST NIGHT. NO C/O PAIN. PATIENT UPSET ABOUT NOT RECEIVING FOOD LAST NIGHT DUE TO BLOOD SUGAR HIGH. CALL LIGHT WITHIN REACH. BED IN LOW POSITION.
--- NOTE | 2023-02-21 14:50 | NUR ---
DR DEY WOULD NOT WAND PAIN MEDS ADMINISTERED UNTIL PT HAS HAD FOOD. POST OP CBG NOT REQUIRED AT THIS TIME PER DR DEY.
--- NOTE | 2023-02-21 18:01 | NUR ---
SHIFT SUMMARY: PATIENT VERY ANGRY ABOUT BEING NPO SINCE [place] FOR I&D TODAY. C/O PAIN IN BILATERAL FEET, MEDICATED PER EMAR. DRESSING ON R FOOT CD&I. RECIEVED POST OP SHOE FROM [employer], GAVE TO PATIENT WITH INSTRUCTIONS ON HOW TO USE AND HEEL WEIGHT BEARING ONLY; VERBALIZED UNDERSTANDING AND WROTE ON HIS DRY ERASE BOARD A REMINDER. USING URINAL INDEPENDENTLY. UNSURE OF LBM; MAY BENEFIT FROM BOWEL MEDS.
[2023-02-22 03:25] VITALS: BP 134/86
[2023-02-22 05:24] LABS: BASOPHILS ABSOLUTE AUTO 0.09 K/mm3 (0.00-0.23); BASOPHILS PERCENT AUTO 1 % (0-2); EOSINOPHILS ABSOLUTE AUTO 0.65 K/mm3 (0.00-0.68); EOSINOPHILS PERCENT AUTO 6 % (0-6); Hematocrit 40.9 % (37.0-53.0); Hemoglobin 14.3 g/dL (13.5-17.5); IMMATURE GRAN ABSOLUTE AUTO 0.09 K/mm3 (0.00-0.10); IMMATURE GRAN PERCENT AUTO 1 % (0-1); LYMPHOCYTES ABSOLUTE AUTO 1.46 K/mm3 (0.84-5.20); LYMPHOCYTES PERCENT AUTO 14 % (21-46); MONOCYTES ABSOLUTE AUTO 0.76 K/mm3 (0.16-1.47); MONOCYTES PERCENT AUTO 7 % (4-13); Mean Corpuscular HGB 27.3 pg (26.0-34.0); Mean Corpuscular Volume 78 fL (80-100); Mean Platelet Volume 10.8 fL (9.1-12.4); NEUTROPHILS ABSOLUTE AUTO 7.21 K/mm3 (1.96-9.15); NEUTROPHILS PERCENT AUTO 70 % (41-73); Platelet Count 359 K/mm3 (150-400); RDW Coefficient Variation 14.1 % (11.7-14.2); RDW Standard Deviation 39.2 fL (35.1-46.3); Red Blood Cell Count 5.24 M/mm3 (4.30-5.90); White Blood Cell Count 10.26 K/mm3 (4.00-11.30)
[2023-02-22 05:28] LABS: Albumin, Blood 2.6 g/dL (3.4-5.0); Anion Gap 4 mmol/L (6-16); Blood Urea Nitrogen 23 mg/dL (8-24); Bun/Creatinine Ratio 23.1 (12.0-20.0); CO2, Blood 28 mmol/L (21-32); Calcium, Blood 8.5 mg/dL (8.5-10.1); Chloride, Blood 102 mmol/L (98-108); Glomerular Filtration Rate 86 (60-); Glucose, Blood 341 mg/dL (70-99); Phosphorus, Blood 2.9 mg/dL (2.5-4.9); Potassium, Blood 4.8 mmol/L (3.5-5.5); Sodium, Blood 134 mmol/L (136-145)
--- NOTE | 2023-02-22 06:31 | NUR ---
NOC SHIFT SUMMARY: PATIENT CONTINUES TO ASK FOR SNACKS. CONTINUE TO ENCOURAGE PATIENT TO WAIT BLOOD SUGAR IS TOO HIGH. NORCO GIVEN TWICE FOR PAIN. INDEPENDENT IN ROOM. IV ANTIBIOTICS. CALL LIGHT WITHIN REACH. BED IN LOW POSITION.
[2023-02-22 07:25] VITALS: BP 137/77
[2023-02-22 10:27] LABS: Vancomycin, Trough 15.9 ug/mL (5.0-10.0)
[2023-02-22 16:50] VITALS: BP 102/68
--- NOTE | 2023-02-22 18:02 | NUR ---
SHIFT SUMMARY; PATIENT COMPLAINS OF PAIN FREQUENTLY TODAY. MEDICATED WITH NORCO FOR PAIN 10/10 AT 1800 TONIGHT. PATIENT CRANKY WITH STAFF. DRESSING ON RIGHT LEG CHANGED. NO EXUDATE NOTED. PACKING REMOVED PER ORDER WITH MINIMAL DIFFICULTY. PATEINT TOLERATED DRESSING CHANGE. VITAL SIGNS ARE WNL. PER PATIENT HE IS HOMELESS AND WOULD LIKE SOMEONE TO FIND HIM A PLACE HE CAN GO TO RECOVER. HE DOES NOT LIKE THE [facility] AND THEREFORE SLEEPS IN THE [place].
[2023-02-22 20:15] VITALS: BP 116/68
[2023-02-23 04:13] VITALS: BP 125/69
--- NOTE | 2023-02-23 04:54 | NUR ---
NOC SHIFT SUMMARY: PT. PLEASANT OVERNIGHT. NORCO GIVEN TWICE. DECLINED TYLENOL. UP INDEPENDENTLY. DRESSING INTACT. CONTINUED ON IV ANTIBIOTICS. BED IN LOW POSITION. CALL LIGHT WITHIN REACH.
[2023-02-23 05:54] LABS: Bun/Creatinine Ratio 32.1 (12.0-20.0); Calcium, Blood 8.7 mg/dL (8.5-10.1); Creatinine, Blood 1.12 mg/dL (0.60-1.20); Potassium, Blood 4.3 mmol/L (3.5-5.5)
[2023-02-23 08:05] VITALS: BP 126/72
[2023-02-23] MEDS ORDERED: INSULANI SC (12:33)
[2023-02-23] MEDS ORDERED: VISBIOME 112.51 EACH PO (12:34)
[2023-02-23] MEDS ORDERED: CEPH500 PO (12:35)
[2023-02-23] MEDS ORDERED: HUMALOG KW100 UNIT/1 UD (12:40)
[2023-02-23] MEDS ORDERED: SULFAMETHOXAZO1 EAC1 PO (12:41)
[2023-02-23] MEDS ORDERED: ACET325 PO (12:42)
--- NOTE | 2023-02-23 13:27 | NUR ---
PATIENT IS DISCHAREGED TO HOME VIA [facility]. HE HAD DISCUSSION WITH BUSINESS SUPPORT MANAGER ARIANNA PRIOR TO DC AND REFUSED WALKER. HE WANTED WHEELCHAIR AND A PHONE HOWEVER PER ARIANNA HE HAD BEEN PROVIDED 5 PHONES IN THE PAST BY [facility] AND THEY WERE NOT GOING TO GIVE HIM ANOTHER. HE DOES NOT MEET REQUIREMENTS FOR A WHEELCHAIR PER ARIANNA. [facility] IS CALLED MEDS ARE FAXED TO [facility] AND PATIENT TO GO TO [facility] AT 1330. PATIENT CHANGES MIND AND WANTS A WALKER AT LAST MINUTE. BUSINESS SUPPORT MANAGER LATRELL IS ABLE TO GET ONE ISSACT IS LEAVING FOR HIM TO TAKE WITH HIM. PER PATIENT HE HAS NO WAY TO CALL FOR AN APPOINTMENT NO WAY TO GET TO APPOINTMENTS SO HE CANNOT COME TO WOUND CLINIC OR PCP OR HE REFUSES TO GO TO [facility] SO HOME HEALTH COULD COME TO HIM FOR WOUND CARE. ALSO MESSAGE COULD BE LEFT AT [facility] FOR HIM WITH PCP APPOINTMENT. PATIENT STILL REFUSES HE HAS A DOG AND WILL NOT PART WITH DOG IT IS A MEMBER OF HIS FAMILY. PATIENT PROVIDED WITH NUMBERS AND ADDRESSES OF ASSISTANCE AND LEAVES UNIT VIA WHEEL CHAIR TO [facility]
== END 2023-02-23 13:41 | disposition home or self-care (01) | DRG 564 ==
LOC: ER 14:09 → MEDS 19:47
PROVIDERS: Family Medicine; Internal Medicine; Pharmacist; Podiatrist Foot & Ankle Surgery; Student in an Organized Health Care Education/Training Program; ADMIT Hospitalist
PROC: 0J9Q0ZZ Drainage of Right Foot Subcutaneous Tissue and Fascia, Open Approach (ICD-10-PCS; principal; 2023-02-21 14:00)
DX: T87.43 Infection of amputation stump, right lower extremity (principal); E11.00 Type 2 diabetes mellitus with hyperosmolarity without nonketotic hyperglycemic-hyperosmolar coma (NKHHC); E87.1 Hypo-osmolality and hyponatremia; L02.611 Cutaneous abscess of right foot; M86.8X7 Other osteomyelitis, ankle and foot; L03.115 Cellulitis of right lower limb; Z59.02 Unsheltered homelessness; E11.65 Type 2 diabetes mellitus with hyperglycemia; E11.621 Type 2 diabetes mellitus with foot ulcer; L97.519 Non-pressure chronic ulcer of other part of right foot with unspecified severity; Y83.5 Amputation of limb(s) as the cause of abnormal reaction of the patient, or of later complication, without mention of misadventure at the time of the procedure; F17.210 Nicotine dependence, cigarettes, uncomplicated; E11.42 Type 2 diabetes mellitus with diabetic polyneuropathy; E11.69 Type 2 diabetes mellitus with other specified complication; F15.10 Other stimulant abuse, uncomplicated; D64.9 Anemia, unspecified; L01.01 Non-bullous impetigo; Z89.431 Acquired absence of right foot; Z89.422 Acquired absence of other left toe(s); Z86.14 Personal history of Methicillin resistant Staphylococcus aureus infection; Z79.4 Long term (current) use of insulin; Z79.2 Long term (current) use of antibiotics; Z79.84 Long term (current) use of oral hypoglycemic drugs; Z79.899 Other long term (current) drug therapy; Z87.820 Personal history of traumatic brain injury; Z87.81 Personal history of (healed) traumatic fracture; Z91.199 Patient's noncompliance with other medical treatment and regimen due to unspecified reason
CPT/HCPCS: 36415; 73718; 80048; 80053; 80069; 80202; 82947; 83036; 85025; 85027; 93005; 93010; 96361; 96365; 99285-25; A9270; J0736; J1650; J1815; J2001; J2250; J2543; J2704; J3010; J3370; J7030; J7050; J7120

== ENCOUNTER 2023-03-09 15:25 | Emergency (ER) | payer OTHER ==
[~2023-03-09] VITALS: Ht 175.3 cm; Wt 63.5 kg
[~2023-03-09 15:25] MED LIST changes: +ACET325 PO; +HUMALOG KW100 UNIT/1 UD; +INSULANI SC; +SULFAMETHOXAZO1 EAC1 PO
[2023-03-09 15:32] VITALS: BP 135/99
== END 2023-03-09 17:22 | disposition home or self-care (01) ==
LOC: ER 15:25
DX: M79.672 Pain in left foot (principal); M79.671 Pain in right foot; G89.29 Other chronic pain; F17.210 Nicotine dependence, cigarettes, uncomplicated; Z59.00 Homelessness unspecified; Z79.899 Other long term (current) drug therapy; Z79.4 Long term (current) use of insulin; Z87.820 Personal history of traumatic brain injury; Z89.432 Acquired absence of left foot; Z89.431 Acquired absence of right foot
CPT/HCPCS: 99283; A9270

== ENCOUNTER 2023-03-14 13:21 | Emergency (ER) | payer OTHER ==
[~2023-03-14] VITALS: Ht 175.3 cm; Wt 68.0 kg
[2023-03-14 14:03] VITALS: BP 152/85
[2023-03-14] MEDS ORDERED: HUMALOG KW100 UNIT/1 UD (14:09)
[2023-03-14] MEDS ORDERED: CEPH500 PO (14:09)
[2023-03-14] MEDS ORDERED: SULFAMETHOXAZO1 EAC1 PO (14:09)
[2023-03-14] MEDS ORDERED: VISBIOME 112.51 EACH PO (14:09)
[2023-03-14] MEDS ORDERED: INSULANI SC (14:09)
== END 2023-03-14 14:12 | disposition home or self-care (01) ==
LOC: ER 13:21
DX: E11.621 Type 2 diabetes mellitus with foot ulcer (principal); L97.419 Non-pressure chronic ulcer of right heel and midfoot with unspecified severity; F17.210 Nicotine dependence, cigarettes, uncomplicated; Z87.820 Personal history of traumatic brain injury; Z89.431 Acquired absence of right foot; Z79.899 Other long term (current) drug therapy; Z79.4 Long term (current) use of insulin
CPT/HCPCS: 99282

== ENCOUNTER 2023-03-16 15:14 | Emergency (ER) | payer OTHER ==
[~2023-03-16] VITALS: Ht 175.3 cm; Wt 68.0 kg
[2023-03-16 16:16] LABS: BASOPHILS ABSOLUTE AUTO 0.06 K/mm3 (0.00-0.23); BASOPHILS PERCENT AUTO 1 % (0-2); EOSINOPHILS ABSOLUTE AUTO 0.31 K/mm3 (0.00-0.68); EOSINOPHILS PERCENT AUTO 4 % (0-6); Hematocrit 41.6 % (37.0-53.0); Hemoglobin 13.9 g/dL (13.5-17.5); IMMATURE GRAN ABSOLUTE AUTO 0.01 K/mm3 (0.00-0.10); IMMATURE GRAN PERCENT AUTO 0 % (0-1); LYMPHOCYTES ABSOLUTE AUTO 1.96 K/mm3 (0.84-5.20); LYMPHOCYTES PERCENT AUTO 27 % (21-46); MONOCYTES ABSOLUTE AUTO 0.56 K/mm3 (0.16-1.47); MONOCYTES PERCENT AUTO 8 % (4-13); Mean Corpuscular HGB 27.9 pg (26.0-34.0); Mean Corpuscular HGB Conc 33.4 g/dL (31.5-36.5); Mean Corpuscular Volume 84 fL (80-100); Mean Platelet Volume 10.9 fL (9.1-12.4); NEUTROPHILS ABSOLUTE AUTO 4.36 K/mm3 (1.96-9.15); NEUTROPHILS PERCENT AUTO 60 % (41-73); Platelet Count 325 K/mm3 (150-400); RDW Standard Deviation 42.3 fL (35.1-46.3); Red Blood Cell Count 4.98 M/mm3 (4.30-5.90); White Blood Cell Count 7.26 K/mm3 (4.00-11.30)
[2023-03-16 16:24] LABS: C-REACTIVE PROTEIN, EXT RANGE 3.34 mg/dL (0.000-0.300)
[2023-03-16 16:26] LABS: Albumin/Globulin Ratio 0.6 (0.8-1.8); Bilirubin, Total 0.2 mg/dL (0.1-1.0); Bun/Creatinine Ratio 19.2 (12.0-20.0); Calcium, Blood 8.4 mg/dL (8.5-10.1); Creatinine, Blood 0.83 mg/dL (0.60-1.20); Globulin, Blood 4.9 g/dL (2.2-4.0); Potassium, Blood 4.5 mmol/L (3.5-5.5); Total Protein, Blood 7.9 g/dL (6.4-8.2)
[2023-03-16 18:00] VITALS: BP 139/76
== END 2023-03-16 18:40 | disposition home or self-care (01) ==
LOC: ER 15:14
PROVIDERS: Physician Assistant
DX: M86.671 Other chronic osteomyelitis, right ankle and foot (principal); E11.621 Type 2 diabetes mellitus with foot ulcer; L97.519 Non-pressure chronic ulcer of other part of right foot with unspecified severity; F17.210 Nicotine dependence, cigarettes, uncomplicated; Z79.4 Long term (current) use of insulin; Z79.2 Long term (current) use of antibiotics
CPT/HCPCS: 80053; 83036; 85025; 86140; 99283

== ENCOUNTER → 2023-03-16 | Outpatient (CLI) | payer OTHER ==
[2023-03-16 20:04] LABS: BASOPHILS ABSOLUTE AUTO 0.05 K/mm3 (0.00-0.23); BASOPHILS PERCENT AUTO 1 % (0-2); EOSINOPHILS ABSOLUTE AUTO 0.29 K/mm3 (0.00-0.68); EOSINOPHILS PERCENT AUTO 4 % (0-6); Hematocrit 42.3 % (37.0-53.0); Hemoglobin 13.7 g/dL (13.5-17.5); IMMATURE GRAN ABSOLUTE AUTO 0.02 K/mm3 (0.00-0.10); IMMATURE GRAN PERCENT AUTO 0 % (0-1); LYMPHOCYTES ABSOLUTE AUTO 1.81 K/mm3 (0.84-5.20); LYMPHOCYTES PERCENT AUTO 26 % (21-46); MONOCYTES ABSOLUTE AUTO 0.44 K/mm3 (0.16-1.47); MONOCYTES PERCENT AUTO 6 % (4-13); Mean Corpuscular HGB 27.3 pg (26.0-34.0); Mean Corpuscular HGB Conc 32.4 g/dL (31.5-36.5); Mean Corpuscular Volume 84 fL (80-100); Mean Platelet Volume 11.7 fL (9.1-12.4); NEUTROPHILS ABSOLUTE AUTO 4.29 K/mm3 (1.96-9.15); NEUTROPHILS PERCENT AUTO 62 % (41-73); Platelet Count 374 K/mm3 (150-400); RDW Coefficient Variation 14.2 % (11.7-14.2); RDW Standard Deviation 43.7 fL (35.1-46.3); Red Blood Cell Count 5.01 M/mm3 (4.30-5.90)
[2023-03-16 20:13] LABS: C-REACTIVE PROTEIN, EXT RANGE 3.47 mg/dL (0.000-0.300)
[2023-03-16 20:18] LABS: Albumin/Globulin Ratio 0.6 (0.8-1.8); Bilirubin, Total 0.2 mg/dL (0.1-1.0); Bun/Creatinine Ratio 17.3 (12.0-20.0); Calcium, Blood 8.8 mg/dL (8.5-10.1); Creatinine, Blood 0.87 mg/dL (0.60-1.20); Globulin, Blood 4.9 g/dL (2.2-4.0); Potassium, Blood 4.6 mmol/L (3.5-5.5); Total Protein, Blood 7.9 g/dL (6.4-8.2)
== END ==
LOC: LAB 15:08 → LAB SHORT 15:08
PROVIDERS: Nurse Practitioner Family
DX: M86.171 Other acute osteomyelitis, right ankle and foot (principal); E11.8 Type 2 diabetes mellitus with unspecified complications
CPT/HCPCS: 80053; 83036; 85025; 86140

== ENCOUNTER 2023-09-29 19:18 | Emergency (ER) | payer OTHER ==
[~2023-09-29] VITALS: Ht 175.3 cm; Wt 68.0 kg
[~2023-09-29 19:18] MED LIST changes: +CYMBALTA30 M1 PO; +GABA100 PO; +IMODIUM A-D2 M1 PO; +LACT PO; +MIRALAX17 GM PO; +Norco 5-325 MG PO
[2023-09-29 20:24] LABS: BASOPHILS ABSOLUTE AUTO 0.07 K/mm3 (0.00-0.23); BASOPHILS PERCENT AUTO 1 % (0-2); EOSINOPHILS ABSOLUTE AUTO 0.14 K/mm3 (0.00-0.68); EOSINOPHILS PERCENT AUTO 2 % (0-6); Hematocrit 42.2 % (37.0-53.0); Hemoglobin 14.2 g/dL (13.5-17.5); IMMATURE GRAN ABSOLUTE AUTO 0.01 K/mm3 (0.00-0.10); IMMATURE GRAN PERCENT AUTO 0 % (0-1); LYMPHOCYTES ABSOLUTE AUTO 2.06 K/mm3 (0.84-5.20); LYMPHOCYTES PERCENT AUTO 28 % (21-46); MONOCYTES ABSOLUTE AUTO 0.53 K/mm3 (0.16-1.47); MONOCYTES PERCENT AUTO 7 % (4-13); Mean Corpuscular HGB Conc 33.6 g/dL (31.5-36.5); Mean Corpuscular Volume 83 fL (80-100); Mean Platelet Volume 10.5 fL (9.1-12.4); NEUTROPHILS ABSOLUTE AUTO 4.44 K/mm3 (1.96-9.15); NEUTROPHILS PERCENT AUTO 61 % (41-73); Platelet Count 357 K/mm3 (150-400); RDW Coefficient Variation 13.1 % (11.7-14.2); RDW Standard Deviation 39.9 fL (35.1-46.3); Red Blood Cell Count 5.08 M/mm3 (4.30-5.90); White Blood Cell Count 7.25 K/mm3 (4.00-11.30)
[2023-09-29 20:44] LABS: Albumin, Blood 3.3 g/dL (3.4-5.0); Albumin/Globulin Ratio 0.7 (0.8-1.8); Bilirubin, Total 0.3 mg/dL (0.1-1.0); Bun/Creatinine Ratio 24.8 (12.0-20.0); Calcium, Blood 8.9 mg/dL (8.5-10.1); Creatinine, Blood 0.81 mg/dL (0.60-1.20); Globulin, Blood 4.6 g/dL (2.2-4.0); Potassium, Blood 5.1 mmol/L (3.5-5.5); Total Protein, Blood 7.9 g/dL (6.4-8.2)
[2023-09-29 22:04] LABS: Source, Urine Clean Catch
[2023-09-29 22:13] LABS: Bilirubin, Urine Neg (Neg); Blood, Urine Neg (Neg); Glucose Qualitative, Urine 4+ (Neg); Ketones, Urine Neg (Neg); Leukocyte Esterase, Urine Neg (Neg); Nitrite, Urine Neg (Neg); Protein, Urine Neg (Neg); Specific Gravity, Urine 1.015 (1.003-1.022); Urobilinogen, Urine NORM (Normal)
[2023-09-29] MEDS ORDERED: Insulin Regular 100 Unit/ML 1ML Dose IV ONE (22:15)
[2023-09-29] MEDS ORDERED: NS 1,000 ML IV SCH (22:15)
[2023-09-29 22:18] LABS: Appearance, Urine Clear (Clear); Color, Urine Yellow (P-Yellow)
[2023-09-30] VITALS: BP 126/67
[2023-09-30] MEDS ORDERED: METF500 PO (00:09)
== END 2023-09-30 00:25 | disposition home or self-care (01) ==
LOC: ER 19:18
PROVIDERS: Nurse Practitioner
DX: E11.621 Type 2 diabetes mellitus with foot ulcer (principal); E11.65 Type 2 diabetes mellitus with hyperglycemia; F17.210 Nicotine dependence, cigarettes, uncomplicated; M19.90 Unspecified osteoarthritis, unspecified site; Z79.84 Long term (current) use of oral hypoglycemic drugs; Z79.899 Other long term (current) drug therapy
CPT/HCPCS: 73630; 80053; 81003; 85025; 96360; 99284-25; J1815; J7030

== ENCOUNTER 2023-12-26 21:24 | Emergency (ER) | payer OTHER ==
[~2023-12-26] VITALS: Ht 175.3 cm; Wt 68.0 kg
[~2023-12-26 21:24] MED LIST changes: +LANTUS SOL100 UNIT/1 SC; +OXYC5 PO
[2023-12-26 21:57] LABS: Glucose, Blood 543 mg/dL (70-99)
[2023-12-26 22:15] VITALS: BP 140/82
[2023-12-26] MEDS ORDERED: Lactated Ringer's 1,000 ML IV SCH (22:35)
[2023-12-26 22:50] LABS: BASOPHILS ABSOLUTE AUTO 0.09 K/mm3 (0.00-0.23); BASOPHILS PERCENT AUTO 1 % (0-2); EOSINOPHILS ABSOLUTE AUTO 0.16 K/mm3 (0.00-0.68); EOSINOPHILS PERCENT AUTO 1 % (0-6); Hematocrit 39.1 % (37.0-53.0); Hemoglobin 12.7 g/dL (13.5-17.5); IMMATURE GRAN ABSOLUTE AUTO 0.04 K/mm3 (0.00-0.10); IMMATURE GRAN PERCENT AUTO 0 % (0-1); LYMPHOCYTES ABSOLUTE AUTO 1.95 K/mm3 (0.84-5.20); LYMPHOCYTES PERCENT AUTO 16 % (21-46); MONOCYTES ABSOLUTE AUTO 0.86 K/mm3 (0.16-1.47); MONOCYTES PERCENT AUTO 7 % (4-13); Mean Corpuscular HGB 26.1 pg (26.0-34.0); Mean Corpuscular HGB Conc 32.5 g/dL (31.5-36.5); Mean Corpuscular Volume 81 fL (80-100); Mean Platelet Volume 10.6 fL (9.1-12.4); NEUTROPHILS ABSOLUTE AUTO 9.39 K/mm3 (1.96-9.15); NEUTROPHILS PERCENT AUTO 75 % (41-73); Platelet Count 397 K/mm3 (150-400); RDW Coefficient Variation 13.5 % (11.7-14.2); RDW Standard Deviation 39.1 fL (35.1-46.3); Red Blood Cell Count 4.86 M/mm3 (4.30-5.90); White Blood Cell Count 12.49 K/mm3 (4.00-11.30)
[2023-12-26] MEDS ORDERED: Lactated Ringer's 1,000 ML IV ONE (22:55)
[2023-12-26] MEDS ORDERED: Ketorolac Tromethamine 15mg Vial IV ONE (23:10)
[2023-12-26 23:11] LABS: Base Excess Venous 3.6 mmol/L; Bicarbonate Venous 26.7 mmol/L (24.0-30.0); PCO2 Venous 47.2 mmHg (38-42); pH Blood Venous 7.39 (7.34-7.37)
[2023-12-26 23:13] LABS: Alanine Aminotransfer (ALT/SGP 13 U/L (12-78); Albumin, Blood 3.1 g/dL (3.4-5.0); Albumin/Globulin Ratio 0.6 (0.8-1.8); Alk Phos 148 U/L (50-136); Anion Gap 13 mmol/L (3-11); Aspartate Aminotrans (AST/SGOT 9 U/L (12-37); Beta-hydroxybutyrate 0.8 mg/dL (0.2-2.8); Bilirubin, Total 0.2 mg/dL (0.1-1.0); Blood Urea Nitrogen 20 mg/dL (8-24); Bun/Creatinine Ratio 24.4 (12.0-20.0); CO2, Blood 25 mmol/L (21-32); Calcium, Blood 8.8 mg/dL (8.5-10.1); Chloride, Blood 99 mmol/L (98-108); Creatinine, Blood 0.82 mg/dL (0.60-1.20); Globulin, Blood 4.9 g/dL (2.2-4.0); Glomerular Filtration Rate 99 (60-); Potassium, Blood 4.2 mmol/L (3.5-5.5); Sodium, Blood 133 mmol/L (136-145)
[2023-12-27] MEDS ORDERED: Insulin Regular 100 Unit/ML 1ML Dose IV ONE (00:10)
[2023-12-27] MEDS ORDERED: Robaxin750 MG PO (01:58)
[2023-12-27] MEDS ORDERED: METF500 PO (01:58)
== END 2023-12-27 02:16 | disposition home or self-care (01) ==
LOC: ER 21:24
PROVIDERS: Student in an Organized Health Care Education/Training Program
DX: E11.621 Type 2 diabetes mellitus with foot ulcer (principal); L97.529 Non-pressure chronic ulcer of other part of left foot with unspecified severity; M79.671 Pain in right foot; E11.65 Type 2 diabetes mellitus with hyperglycemia; I10 Essential (primary) hypertension; F17.210 Nicotine dependence, cigarettes, uncomplicated; Z89.422 Acquired absence of other left toe(s); Z79.4 Long term (current) use of insulin
CPT/HCPCS: 73630; 80053; 82010; 82803; 82947; 85025; 96361; 96374; 99284-25; J1815; J1885; J7120

== ENCOUNTER 2024-01-25 15:46 | Inpatient (IN) | payer OTHER ==
[~2024-01-25] VITALS: Ht 175.3 cm; Wt 65.6 kg
[~2024-01-25 15:46] MED LIST changes: +Robaxin750 MG PO
[2024-01-25] MEDS ORDERED: Piperacillin/Tazobactam Sod 4.5 GM in NS 100 ML IV ONE (21:10)
[2024-01-25] MEDS ORDERED: Vancomycin HCL 2,000 MG in NS 520 ML IV ONE (21:10)
[2024-01-25 21:49] LABS: BASOPHILS ABSOLUTE AUTO 0.07 K/mm3 (0.00-0.23); BASOPHILS PERCENT AUTO 1 % (0-2); EOSINOPHILS ABSOLUTE AUTO 0.21 K/mm3 (0.00-0.68); EOSINOPHILS PERCENT AUTO 3 % (0-6); Hemoglobin 12.6 g/dL (13.5-17.5); IMMATURE GRAN ABSOLUTE AUTO 0.03 K/mm3 (0.00-0.10); IMMATURE GRAN PERCENT AUTO 0 % (0-1); LYMPHOCYTES ABSOLUTE AUTO 2.37 K/mm3 (0.84-5.20); LYMPHOCYTES PERCENT AUTO 29 % (21-46); MONOCYTES ABSOLUTE AUTO 0.66 K/mm3 (0.16-1.47); MONOCYTES PERCENT AUTO 8 % (4-13); Mean Corpuscular HGB 26.4 pg (26.0-34.0); Mean Corpuscular HGB Conc 33.2 g/dL (31.5-36.5); Mean Corpuscular Volume 80 fL (80-100); Mean Platelet Volume 9.9 fL (9.1-12.4); NEUTROPHILS ABSOLUTE AUTO 4.88 K/mm3 (1.96-9.15); NEUTROPHILS PERCENT AUTO 59 % (41-73); Platelet Count 418 K/mm3 (150-400); RDW Coefficient Variation 14.1 % (11.7-14.2); RDW Standard Deviation 40.8 fL (35.1-46.3); Red Blood Cell Count 4.77 M/mm3 (4.30-5.90); White Blood Cell Count 8.22 K/mm3 (4.00-11.30)
[2024-01-25 22:08] LABS: Albumin/Globulin Ratio 0.6 (0.8-1.8); Bilirubin, Total 0.3 mg/dL (0.1-1.0); Bun/Creatinine Ratio 18.2 (12.0-20.0); Calcium, Blood 9.7 mg/dL (8.5-10.1); Creatinine, Blood 0.72 mg/dL (0.60-1.20); Globulin, Blood 5.4 g/dL (2.2-4.0); Total Protein, Blood 8.4 g/dL (6.4-8.2)
[2024-01-25] MEDS ORDERED: FLU VACC TS2024-25(6MOS UP)/PF 45 MCG/0.5 ML SYRINGE IM ONE (23:10)
[2024-01-25] MEDS ORDERED: Ondansetron 4 MG TAB PO PRN (23:10)
[2024-01-26 00:39] VITALS: BP 132/81
[2024-01-26] MEDS ORDERED: OxyCODONE HCL 5 MG TAB PO PRN (01:55)
[2024-01-26] MEDS ORDERED: Acetaminophen 325 MG TABLET PO PRN (01:55)
[2024-01-26] MEDS ORDERED: NS 250 ML IV PRN (03:40)
[2024-01-26] MEDS ORDERED: Piperacillin/Tazobactam Sod 4.5 GM in NS 100 ML IV SCH (06:00)
[2024-01-26 06:13] LABS: BASOPHILS ABSOLUTE AUTO 0.06 K/mm3 (0.00-0.23); BASOPHILS PERCENT AUTO 1 % (0-2); EOSINOPHILS ABSOLUTE AUTO 0.25 K/mm3 (0.00-0.68); EOSINOPHILS PERCENT AUTO 3 % (0-6); Hematocrit 37.6 % (37.0-53.0); Hemoglobin 12.4 g/dL (13.5-17.5); IMMATURE GRAN ABSOLUTE AUTO 0.03 K/mm3 (0.00-0.10); IMMATURE GRAN PERCENT AUTO 0 % (0-1); LYMPHOCYTES ABSOLUTE AUTO 1.86 K/mm3 (0.84-5.20); LYMPHOCYTES PERCENT AUTO 21 % (21-46); MONOCYTES ABSOLUTE AUTO 0.72 K/mm3 (0.16-1.47); MONOCYTES PERCENT AUTO 8 % (4-13); Mean Corpuscular HGB 26.5 pg (26.0-34.0); Mean Corpuscular Volume 80 fL (80-100); Mean Platelet Volume 9.5 fL (9.1-12.4); NEUTROPHILS ABSOLUTE AUTO 5.85 K/mm3 (1.96-9.15); NEUTROPHILS PERCENT AUTO 67 % (41-73); Platelet Count 407 K/mm3 (150-400); RDW Coefficient Variation 14.2 % (11.7-14.2); RDW Standard Deviation 41.4 fL (35.1-46.3); Red Blood Cell Count 4.68 M/mm3 (4.30-5.90); White Blood Cell Count 8.77 K/mm3 (4.00-11.30)
[2024-01-26 06:28] LABS: Bun/Creatinine Ratio 15.3 (12.0-20.0); Creatinine, Blood 0.85 mg/dL (0.60-1.20); Potassium, Blood 4.4 mmol/L (3.5-5.5)
--- NOTE | 2024-01-26 06:46 | NUR ---
SHIFT SUMMARY PT ARRIVED ON FLOOR AT 0040. PT STATED HE IS "SUPER TIRED". THIS RN GOT HIM SETTLED IN AND INFORMED HIM THERE WOULD NEED TO BE AN ASSESSMENT AND SKIN CHECK AGREEABLE. PT SLEEPING PEACEFULLY AT 0145. INTAKE ASSESSMENT STILL NEEDS TO BE COMPLETED AND CHARTED, BUT PT TOO TIRED TO BE ABLE TO ANSWER QUESTIONS. PERFORMED SKIN ASSESSMENT. PT HAS LARGE ULCERS ON BLE. MAGGOTS WERE PRESENT BETWEEN HIS THREE REMAINING TOES. THIS RN SUCTIONED THE MAGGOTS OUT, BUT SOME LARVA MAY REMAIN. WILL RELAY TO DAY SHIFT. PT STATED HE HAS BEEN HOMELESS AND "LIVING ON THE STREETS FOR ABOUT TWO WEEKS." HE PLANS TO MOVE INTO [facility] "IN ABOUT 3-4 DAYS." PICTURES OF WOUNDS AND MAGGOTS IN PT CHART. PT NEEDS WOUND CARE CONSULT AND TX. PT UNRECEPTIVE TO TEACHINGS. PT DENIES NEED FOR TEACHING, STATES "I ALREADY KNOW ABOUT ALL THE ISSUES."
[2024-01-26] MEDS ORDERED: Insulin Human Lispro 100 Units/ML 3ML Syringe SC SCH ×2 (07:30→08:30)
[2024-01-26 07:47] VITALS: BP 151/82
--- NOTE | 2024-01-26 08:55 | NUR ---
NURSING NOTE: PT HAD BLOOD SUGAR OF 415, DR OLSON NOTIFIED AND ADDITIONALLY 5 UNITS GIVEN ON TOP OF SC.
[2024-01-26] MEDS ORDERED: Lactobacil 2-S.Thermo-Bifido 1 1 Cap PO SCH (09:00)
[2024-01-26] MEDS ORDERED: Nicotine 14 MG PATCH TOP SCH (09:00)
[2024-01-26] MEDS ORDERED: Enoxaparin 40 MG/0.4 ML SYR SC SCH (09:00)
[2024-01-26] MEDS ORDERED: Vancomycin HCL 1,000 MG in NS 250 ML IV SCH (11:00)
[2024-01-26 15:01] VITALS: BP 131/82
--- NOTE | 2024-01-26 17:52 | NUR ---
SHIFT SUMMARY: PT AOX4 AND ORIENTED TO ROOM. PT HUNGRY AND REQUESTING COFFEE REGULARLY. WITHDRAWN, BUT COOPERATIVE IN CARE. HAD CULTURES OF WOUNDS TAKEN, AND MRI DONE ON EACH FOOT. PT IND IN BED AND USING URINAL. TOLERATING IV ANTIBIOTICS WELL. TRANSFERRED INTO WHEELCHAIR AND TO MRI WITHOUT INCIDENT. ON ROOM AIR AND LUNGS CLEAR BILATERALLY. PT IN BED RESTIN, BED IN LOWEST POSITION, AND CALL LIGHT IN REACH. CONTINUING CARE.
--- NOTE | 2024-01-26 17:59 | NUR ---
THIS MONUMENT SETTER HAS REVIEWED AND AGREES WITH ALL NOTES AND ASSESSMENTS BY JUAQUIN PEREZ.
[2024-01-26 19:32] VITALS: BP 137/85
[2024-01-26] MEDS ORDERED: Insulin Glargine-Yfgn 100 Unit/mL 3 ML SYR SC SCH (21:00)
[2024-01-27 04:11] VITALS: BP 147/93
[2024-01-27 05:47] LABS: BASOPHILS ABSOLUTE AUTO 0.08 K/mm3 (0.00-0.23); BASOPHILS PERCENT AUTO 1 % (0-2); EOSINOPHILS ABSOLUTE AUTO 0.25 K/mm3 (0.00-0.68); EOSINOPHILS PERCENT AUTO 4 % (0-6); Hematocrit 37.5 % (37.0-53.0); Hemoglobin 12.3 g/dL (13.5-17.5); IMMATURE GRAN ABSOLUTE AUTO 0.03 K/mm3 (0.00-0.10); IMMATURE GRAN PERCENT AUTO 1 % (0-1); LYMPHOCYTES ABSOLUTE AUTO 2.09 K/mm3 (0.84-5.20); LYMPHOCYTES PERCENT AUTO 36 % (21-46); MONOCYTES ABSOLUTE AUTO 0.58 K/mm3 (0.16-1.47); MONOCYTES PERCENT AUTO 10 % (4-13); Mean Corpuscular HGB 26.1 pg (26.0-34.0); Mean Corpuscular HGB Conc 32.8 g/dL (31.5-36.5); Mean Corpuscular Volume 80 fL (80-100); Mean Platelet Volume 9.4 fL (9.1-12.4); NEUTROPHILS ABSOLUTE AUTO 2.73 K/mm3 (1.96-9.15); NEUTROPHILS PERCENT AUTO 47 % (41-73); Platelet Count 396 K/mm3 (150-400); RDW Coefficient Variation 13.8 % (11.7-14.2); RDW Standard Deviation 40.2 fL (35.1-46.3); Red Blood Cell Count 4.71 M/mm3 (4.30-5.90); White Blood Cell Count 5.76 K/mm3 (4.00-11.30)
[2024-01-27 06:08] LABS: Albumin, Blood 2.5 g/dL (3.4-5.0); Albumin/Globulin Ratio 0.5 (0.8-1.8); Bilirubin, Total 0.4 mg/dL (0.1-1.0); Bun/Creatinine Ratio 25.5 (12.0-20.0); Calcium, Blood 9.2 mg/dL (8.5-10.1); Creatinine, Blood 0.78 mg/dL (0.60-1.20); Globulin, Blood 5.1 g/dL (2.2-4.0); Total Protein, Blood 7.6 g/dL (6.4-8.2)
--- NOTE | 2024-01-27 06:19 | NUR ---
SHIFT SUMMARY PT LYING IN BED AT SHIFT CHANGE. HE IS WATCHING TV. PT STATED HE ASKED FOR A SHOWER DURING DAY SHIFT, AND WAS TOLD HE WOULD "GET ONE TOMORROW." OFFERED PT WARM CLEANSING WIPES AND SHAMPOO CAP FOR INTERMITTENT. PT ACCEPTING OF THIS OPTION. WOUNDS ARE WEEPING MORE THIS EVENING WITH VISIBLE PUSS DRAINING FROM WOUND ON LEFT GREAT TOE. REDNESS HAS DEVELOPED AROUND WOUNDS ON BLE. SNOW LINE WITH SURGICAL MARKER AROUND REDDENED AREA WITH DATE AND TIME. MONITORING FOR CHANGES. NO MORE MAGGOTS VISIBLE AT THIS POINT. EDUCATED PT ON STAYING OFF HIS FEET TO PREVENT WORSENING OF INFECTION. PT AGREEABLE. VANCO BEGAN ADMINISTRATION APPROX [id number]. PT HAVING DIFFICULTY KEEPING ARM STRAIGHT FOR ANTIBIOTIC ADMINISTRATION. ARM BOARD OFFERED AND ACCEPTED FOR DURATION OF IV MEDICATION ADMINISTRATION. DR. MARTINEZ CONTACTED FOR NEW NICOTENE PATCH DUE TO IMAGING REMOVING 24HR 14MG PATCH AFTER ONLY 4HRS FOR MRI. PT SATISFIED WITH DOSING PRESENTLY. DISCUSSED CRAVING INTENSIFIED HUNGER WITH PT.
[2024-01-27] MEDS ORDERED: DiphenhydrAMINE HCl 50 MG Cap PO PRN (13:55)
[2024-01-27] MEDS ORDERED: Nicotine Polacrilex 2 MG Gum PO PRN (14:00)
[2024-01-27] MEDS ORDERED: Nicotine 21 MG PATCH TOP SCH (14:06)
[2024-01-27 15:51] VITALS: BP 134/87
--- NOTE | 2024-01-27 16:27 | NUR ---
SHIFT SUMMARY: PT AOX4 RESTING IN BED. HAD A SHOWER TODAY AND FEELS BETTER AFTERWARDS. HAD THE WOUNDS DRESSED WITH ALGINATE AND STERILE DRESSING PLACED. IV IN R AC OCCLUDED, STARTED A NEW ON IN LEFT WRIST. TOLERATING IV ANTIBIOTICS WELL. SEEMS V ANXIOUS ABOUT HIS CAMP AND HIS DOG. ATTEMPTED TO LEAVE AMA BUT DOCTOR WAS ABLE TO TALK HIM OUT OF LEAVING. PT STILL EATING A LOT AND ASKING FOR A LOT OF SNACKS AND COFFEE. PODIATRY SIGNED OFF, JUST FOLLOW UP OUT PATIENT RECOMMENDED. AWAITING WORKING WITH CASE MANAGEMENT FOR DISCHARGE AND FIGURING OUT PLAN MOVING FORWARD. BED IN LOWEST POSITION, AND CALL LIGHT IN REACH. CONTINUING CARE.
[2024-01-27] MEDS ORDERED: Insulin Human Lispro 100 Units/ML 3ML Syringe SC SCH (16:30)
--- NOTE | 2024-01-27 18:17 | NUR ---
THIS CROP AND SOIL SCIENTIST HAS REVIEWED AND AGREES WITH ALL NOTES AND ASSESSMENTS BY JUAQUIN PEREZ.
[2024-01-27 19:53] VITALS: BP 111/70
[2024-01-28 04:20] VITALS: BP 154/84
[2024-01-28 06:05] LABS: BASOPHILS PERCENT AUTO 1 % (0-2); EOSINOPHILS ABSOLUTE AUTO 0.23 K/mm3 (0.00-0.68); EOSINOPHILS PERCENT AUTO 3 % (0-6); Hematocrit 39.4 % (37.0-53.0); IMMATURE GRAN ABSOLUTE AUTO 0.05 K/mm3 (0.00-0.10); IMMATURE GRAN PERCENT AUTO 1 % (0-1); LYMPHOCYTES ABSOLUTE AUTO 2.26 K/mm3 (0.84-5.20); LYMPHOCYTES PERCENT AUTO 30 % (21-46); MONOCYTES PERCENT AUTO 8 % (4-13); Mean Corpuscular HGB 26.4 pg (26.0-34.0); Mean Corpuscular Volume 80 fL (80-100); Mean Platelet Volume 9.6 fL (9.1-12.4); NEUTROPHILS ABSOLUTE AUTO 4.41 K/mm3 (1.96-9.15); NEUTROPHILS PERCENT AUTO 58 % (41-73); Platelet Count 437 K/mm3 (150-400); RDW Standard Deviation 40.6 fL (35.1-46.3); Red Blood Cell Count 4.93 M/mm3 (4.30-5.90); White Blood Cell Count 7.65 K/mm3 (4.00-11.30)
--- NOTE | 2024-01-28 06:29 | NUR ---
SHIFT SUMMARY PT EXPRESSES FEELING FRUSTRATED AND AGITATED BECAUSE OF NICOTINE CRAVINGS. EXPRESSED DESIRE TO LEAVE, BUT UNDERSTANDS THE RISKS HE IS TAKING IF HE DOES NOT STAY AND CONTINUE TREATMENT. CHANGED HIS IV DRESSING APPROX 2304. PT HAPPY HAVING RECEIVED NICOTINE GUM. PT EXPRESSED SADNESS AND FEELINGS OF BEING A BURDEN FOR ASKING FOR SOMETHING TO EAT. REASSURED PT HE IS ALLOWED TO ASK FOR SNACKS, AND THIS DOES NOT MAKE HIM A BURDEN. PT WAS ABLE TO SLEEP PEACEFULLY FOR DURATION OF NIGHT BETWEEN MEDICATION ADMINISTRATIONS. CALL LIGHT WITHIN REACH.
[2024-01-28 06:34] LABS: Calcium, Blood 8.9 mg/dL (8.5-10.1); Creatinine, Blood 0.85 mg/dL (0.60-1.20); Potassium, Blood 4.1 mmol/L (3.5-5.5)
[2024-01-28 07:57] VITALS: BP 121/79
[2024-01-28] MEDS ORDERED: Insulin Glargine-Yfgn 100 Unit/mL 3 ML SYR SC ONE (09:00)
[2024-01-28] MEDS ORDERED: INSULIN GL100 UNIT/2 SC (13:14)
[2024-01-28] MEDS ORDERED: HUMALOG KW200 UNIT/2 SC (13:17)
[2024-01-28] MEDS ORDERED: AMOCLA875 PO (13:20)
[2024-01-28] MEDS ORDERED: VISBIOME 112.51 EACH PO (13:21)
[2024-01-28] MEDS ORDERED: SULFAMETHOXAZO1 EAC1 PO (13:22)
--- NOTE | 2024-01-28 16:52 | NUR ---
DISCHARGE/ SHIFT SUMMARY: PT AOX4. SEEN BY DOCS AND CLEARED TO GO HOME AFTER PT ALEX. PT SAW PATIENT AND RECOMMENDED CRUTCHES AND TAUGHT HIM HOW TO USE CRUTCHES APPROPRIATELY. FINAL ANTIBIOTIC BEING RAN AND IV IN L WRIST INFILTRATED. REPLACED IN R ARM AND MEDICATION RUNNING. SENT MEDS TO [facility] SO THAT HE COULD [facility] IN DRIVE THROUGH WHILE TRANSPORTING HOME BUT THEY COULD NOT FILL THE INSULIN PEN. SO WAS SENT TO [facility] FOR PT TO [facility] WHEN THEY ARE AVAILABLE TO. WOUND DRESSING CHANGED AND CLEAN DRY AND INTACT. PT EDUCATED ON ANTIBIOTIC REGIMENT AND HOW TO TAKE THEIR INSULIN/ CHECK IT. WELL FOLLOW UP APPOINTMENTS. WANTED TO LEAVE THE FLOOR DION AND ELECTED TO SIT ON THE BENCH OUTSIDE FOR HIS RIDE EVEN THOUGH THEY WOULD BE 30 MINUTES OUT. TRANSFERRED IN AND OUT OF WHEELCHAIR WITHOUT INCIDENT. UNDERSTANDS TEACHING AND REGIMENT. AOX4 AND LUNGS CLEAR BILATERALLY.
--- NOTE | 2024-01-28 17:23 | NUR ---
THIS GALLEY STRIPPER HAS REVIEWED AND AGREES WITH ALL NOTES AND ASSESSMENTS BY JUAQUIN PEREZ.
== END 2024-01-28 16:19 | disposition home or self-care (01) | DRG 638 ==
LOC: ER 15:46 → ERHOLD 23:05 → MEDS 23:05 → ENPENDDIS 01-28 10:27 → MEDS 01-28 16:19
PROVIDERS: Emergency Medicine; Student in an Organized Health Care Education/Training Program; ADMIT Student in an Organized Health Care Education/Training Program
DX: E11.621 Type 2 diabetes mellitus with foot ulcer (principal); L97.419 Non-pressure chronic ulcer of right heel and midfoot with unspecified severity; L97.429 Non-pressure chronic ulcer of left heel and midfoot with unspecified severity; Z59.02 Unsheltered homelessness; I10 Essential (primary) hypertension; Z89.422 Acquired absence of other left toe(s); Z89.431 Acquired absence of right foot; Z79.899 Other long term (current) drug therapy; Z79.84 Long term (current) use of oral hypoglycemic drugs; E11.65 Type 2 diabetes mellitus with hyperglycemia; F17.210 Nicotine dependence, cigarettes, uncomplicated; F15.10 Other stimulant abuse, uncomplicated; B87.0 Cutaneous myiasis; D64.9 Anemia, unspecified; D75.839 Thrombocytosis, unspecified
CPT/HCPCS: 36415; 73620; 73720; 80048; 80053; 80202; 82947; 83036; 83605; 85025; 85651; 86141; 87040; 87070; 87075; 87077; 87147; 87186; 87205; 96365; 96367; 97116; 97161; 97530; 99285-25; A9270; A9579; J1650; J1815; J2543; J3370; J7040; J7050

== ENCOUNTER 2024-02-26 14:25 | Inpatient (IN) | payer OTHER ==
[~2024-02-26] VITALS: Ht 167.6 cm; Wt 70.3 kg
[~2024-02-26 14:25] MED LIST changes: +HUMALOG KW200 UNIT/2 SC; +INSULIN GL100 UNIT/2 SC
[2024-02-26 14:53] LABS: BASOPHILS ABSOLUTE AUTO 0.04 K/mm3 (0.00-0.23); BASOPHILS PERCENT AUTO 0 % (0-2); EOSINOPHILS ABSOLUTE AUTO 0.01 K/mm3 (0.00-0.68); EOSINOPHILS PERCENT AUTO 0 % (0-6); Hematocrit 30.1 % (37.0-53.0); Hemoglobin 10.1 g/dL (13.5-17.5); IMMATURE GRAN ABSOLUTE AUTO 0.21 K/mm3 (0.00-0.10); IMMATURE GRAN PERCENT AUTO 1 % (0-1); LYMPHOCYTES ABSOLUTE AUTO 1.14 K/mm3 (0.84-5.20); LYMPHOCYTES PERCENT AUTO 5 % (21-46); MONOCYTES ABSOLUTE AUTO 1.89 K/mm3 (0.16-1.47); MONOCYTES PERCENT AUTO 8 % (4-13); Mean Corpuscular HGB 26.2 pg (26.0-34.0); Mean Corpuscular HGB Conc 33.6 g/dL (31.5-36.5); Mean Corpuscular Volume 78 fL (80-100); Mean Platelet Volume 10.2 fL (9.1-12.4); NEUTROPHILS ABSOLUTE AUTO 20.78 K/mm3 (1.96-9.15); NEUTROPHILS PERCENT AUTO 86 % (41-73); Platelet Count 354 K/mm3 (150-400); RDW Coefficient Variation 14.6 % (11.7-14.2); RDW Standard Deviation 41.3 fL (35.1-46.3); Red Blood Cell Count 3.86 M/mm3 (4.30-5.90); White Blood Cell Count 24.07 K/mm3 (4.00-11.30)
[2024-02-26 15:06] LABS: Albumin, Blood 1.8 g/dL (3.4-5.0); Albumin/Globulin Ratio 0.4 (0.8-1.8); Bilirubin, Total 0.5 mg/dL (0.1-1.0); Bun/Creatinine Ratio 33.3 (12.0-20.0); Calcium, Blood 8.7 mg/dL (8.5-10.1); Creatinine, Blood 0.72 mg/dL (0.60-1.20); Potassium, Blood 4.4 mmol/L (3.5-5.5); Total Protein, Blood 6.8 g/dL (6.4-8.2)
[2024-02-26] MEDS ORDERED: Piperacillin/Tazobactam Sod 4.5 GM in NS 100 ML IV ONE (15:20)
[2024-02-26] MEDS ORDERED: Acetaminophen 500 MG Tab PO ONE (15:30)
[2024-02-26] MEDS ORDERED: Ketorolac Tromethamine 15mg Vial IV ONE (15:30)
[2024-02-26] MEDS ORDERED: Vancomycin HCL 1,750 MG in NS 500 ML IV ONE (15:35)
[2024-02-26] MEDS ORDERED: DULO30 PO (16:54)
[2024-02-26] MEDS ORDERED: INSULIN AS100 UNIT/6 SC (16:56)
[2024-02-26] MEDS ORDERED: INSULANI SC (16:57)
[2024-02-26] MEDS ORDERED: BISA10S PR (16:58)
[2024-02-26] MEDS ORDERED: ACET325 PO (16:58)
[2024-02-26] MEDS ORDERED: LOPERAMIDE212 PO (17:00)
[2024-02-26] MEDS ORDERED: GENTLE LAX400 MG/5 M PO (17:00)
[2024-02-26] MEDS ORDERED: NYSTATIN15 GM TOP (17:01)
[2024-02-26] MEDS ORDERED: Ondansetron HCl 2 MG / ML 2ML Vial IV PRN (17:45)
[2024-02-26] MEDS ORDERED: FLU VACC TS2024-25(6MOS UP)/PF 45 MCG/0.5 ML SYRINGE IM SCH (17:45)
[2024-02-26] MEDS ORDERED: Insulin Human Lispro 100 Units/ML 3ML Syringe SC SCH (18:00)
[2024-02-26] MEDS ORDERED: Furosemide 10 MG/ML 4ML Vial IV SCH (18:00)
[2024-02-26] MEDS ORDERED: NS 250 ML IV PRN (19:40)
[2024-02-26 19:59] VITALS: BP 132/74
[2024-02-26] MEDS ORDERED: Fleet Enema132 ML PR (20:35)
[2024-02-26] MEDS ORDERED: Lactobacil 2-S.Thermo-Bifido 1 1 Cap PO SCH (21:00)
[2024-02-26] MEDS ORDERED: CefTRIAXone Sodium 2,000 MG in NS 100 ML IV SCH (21:00)
[2024-02-26] MEDS ORDERED: Insulin Glargine-Yfgn 100 Unit/mL 3 ML SYR SC SCH (21:00)
[2024-02-26 22:59] LABS: U Amphetamine Screen DETECTED; U Barbituate Screen Not Detected; U Benzodiazapine Screen Not Detected; U Buprenorphine Screen Not Detected; U Cannabinoids Screen Not Detected; U Cocaine Screen Not Detected; U Methadone Screen Not Detected; U Methamphetamine Screen Not Detected; U Opiates Screen Not Detected; U Oxycodone Screen Not Detected; U Phencyclidine Screen Not Detected
[2024-02-27] MEDS ORDERED: Insulin Glargine-Yfgn 100 Unit/mL 3 ML SYR SC ONE (00:30)
[2024-02-27] MEDS ORDERED: Insulin Human Lispro 100 Units/ML 3ML Syringe SC SCH (00:45)
[2024-02-27 04:37] VITALS: BP 116/77
--- NOTE | 2024-02-27 05:24 | NUR ---
PT ADMITTED THIS SHIFT FROM ED WITH MULTIPLE WOUNDS AND BG IN HIGH 400'S, IS NONCOMPLIANT WITH INSULIN, AND DIET. PT TO BE EVALUATED BY PODIATRY TODAY FOR SURGERY, WOUNDS DOCUMENTED AND PICTURES IN CHART. PT SLEPT BETWEEN CARES, ASK'S FOR FOOD OFTEN. DENIES PAIN, URINARY URGENCY/INCONTINENCE IN NIGHT, PT CURRENTLY NPO SINCE 2400. NEURO CHECKS ARE COMPRIMISED IN HANDS AND FEET. FALL RISK IS NOT STEADY ON FEET, UP WITH ASSIST.
[2024-02-27 05:44] LABS: Hematocrit 30.6 % (37.0-53.0); Mean Corpuscular HGB 25.6 pg (26.0-34.0); Mean Corpuscular HGB Conc 32.7 g/dL (31.5-36.5); Mean Corpuscular Volume 79 fL (80-100); Mean Platelet Volume 10.2 fL (9.1-12.4); Platelet Count 352 K/mm3 (150-400); RDW Coefficient Variation 14.9 % (11.7-14.2); RDW Standard Deviation 42.4 fL (35.1-46.3); White Blood Cell Count 18.19 K/mm3 (4.00-11.30)
[2024-02-27 06:04] LABS: Bun/Creatinine Ratio 33.8 (12.0-20.0); Calcium, Blood 8.7 mg/dL (8.5-10.1); Creatinine, Blood 0.98 mg/dL (0.60-1.20); Magnesium, Blood 2.1 mg/dL (1.6-2.4); Potassium, Blood 3.7 mmol/L (3.5-5.5)
[2024-02-27 06:05] LABS: International Normalized Ratio 1.07; Prothrombin Time Results 11.4 Sec (9.7-11.5)
[2024-02-27] MEDS ORDERED: Vancomycin HCL 1,000 MG in NS 250 ML IV SCH (07:00)
[2024-02-27 07:46] VITALS: BP 126/74
[2024-02-27] MEDS ORDERED: Metoprolol Succinate 25 MG TABCR PO SCH (09:00)
[2024-02-27] MEDS ORDERED: Insulin Glargine-Yfgn 100 Unit/mL 3 ML SYR SC SCH (09:00)
[2024-02-27] MEDS ORDERED: Acetaminophen 325 MG TABLET PO PRN (09:50)
[2024-02-27 14:34] LABS: Percent Saturation 7.4 % (20.0-50.0)
[2024-02-27] MEDS ORDERED: NS 1,000 ML IV SCH (15:45)
[2024-02-27] MEDS ORDERED: Bupivacaine 0.5% HCl 5 MG/ML 30MLVIAL ONE (16:05)
[2024-02-27] MEDS ORDERED: Lidocaine HCL 1% 10 ML MDV ONE (16:05)
[2024-02-27 16:07] VITALS: BP 150/88
[2024-02-27] MEDS ORDERED: Ipratropium/Albuterol SulF 2.5-0.5MG/3 ML Amp INH ONE (16:15)
--- NOTE | 2024-02-27 16:15 | NUR ---
INTO [facility] VIA [facility]. HISTORY AND ALLERGIES REVIEWED. LUNGS WITH SCATTERED WZ T/O, RR 22-26, SATS >90% ON RA. PT REPORTS 10/10 NECK PAIN THAT STARTED 3 DAYS AGO. HE REPORTS THAT HE WAS SLEEPING IN A TENT ON THE WET GROUND. NPO STATUS CONFIRMED. PT HAS SCATTERED NECROTIC WOUNDS TO HIS KNEES AND SHINS.
[2024-02-27] MEDS ORDERED: Ipratropium/Albuterol SulF 2.5-0.5MG/3 ML Amp ONE (16:16)
--- NOTE | 2024-02-27 16:22 | NUR ---
#20 PIV TO LEFT UPPER ARM DRESSING C/D/I-FLUSHES WELL.
--- NOTE | 2024-02-27 16:50 | NUR ---
PT TO BE SCREENED FOR BOTH LICE AND BED BUGS PRIOR TO PROCEDURE. PROCEDURE CANCELLED FOR NOW. REPORT PHONED TO RN PRIOR TO TRANSFER TO ROOM.
--- NOTE | 2024-02-27 18:39 | NUR ---
PT NPO IN MORNING FOR AMPUTATION OF L BIG TOE THIS AFTERNOON, PT COMPLAINED OF THIRST. ECHO COMPLETED PRIOR TO PROCEDURE WITH EF OF 25-30%. PT BROUGHT DOWN TO PRE OP AT 1600, FINANCIAL INVESTMENT ADVISER SERVICES WOULD NOT ALLOW PT TO BE BROUGHT INTO OR D/T SUSPICION OF LICE AND/OR BED BUGS. PT BROUGHT BACK TO ROOM. THIS RN ASSESSED PT, DID NOT SEE ANY SIGNS OF BEDBUGS, POSSIBLE NITS ON PT HAIR. CHARGE NURSE NOTIFIED, LICE TREATMENT ORDERED. PT AGREED TO HAVING HIS HEAD AND MOSER SHAVED D/T THICK MATTING IN HAIR. HEAD SHAVED AND CLEANSED. PT ATE SNACK, ASKED FOR 3 LARGE DIET PEPSIS AND THEN AT DINNER. PUREWICK REPLACED. CALL LIGHT IN REACH.
[2024-02-27 20:20] VITALS: BP 145/91
[2024-02-28 04:22] VITALS: BP 116/75
--- NOTE | 2024-02-28 05:09 | NUR ---
PT WITH SIGNS OF POLYDIPSIA, CONTINUOUSLY ASKS FOR DRINKS THROUGHOUT NIGHT. VS WNL MALE PURWIK IN USE, BG Q 6 HRS 2400 281 RECIEVED 6 UNITS OF LISPRO. UP WITH 1 ASSIST TO SHOWER AFTER LICE TREATMENT DONE. PT NEEDS ASSIST WITH EAR'S, PT WOUNDS UNCHANGED SINCE INITIAL ASSESSMENT 02/26. HAS HYPERSENSITIVE DISCOMFORT ON HEAD AND FACE. STILL AWAITING TO HAVE PROCEDURE.
[2024-02-28 05:53] LABS: Hematocrit 29.5 % (37.0-53.0); Hemoglobin 9.8 g/dL (13.5-17.5); Mean Corpuscular HGB 25.7 pg (26.0-34.0); Mean Corpuscular HGB Conc 33.2 g/dL (31.5-36.5); Mean Corpuscular Volume 77 fL (80-100); Mean Platelet Volume 9.9 fL (9.1-12.4); Platelet Count 375 K/mm3 (150-400); RDW Coefficient Variation 14.9 % (11.7-14.2); RDW Standard Deviation 41.9 fL (35.1-46.3); Red Blood Cell Count 3.81 M/mm3 (4.30-5.90); White Blood Cell Count 17.07 K/mm3 (4.00-11.30)
[2024-02-28 06:44] LABS: Anion Gap 12 mmol/L (3-11); Blood Urea Nitrogen 27 mg/dL (8-24); Bun/Creatinine Ratio 31.5 (12.0-20.0); CO2, Blood 27 mmol/L (21-32); Chloride, Blood 92 mmol/L (98-108); Creatinine, Blood 0.86 mg/dL (0.60-1.20); Glomerular Filtration Rate 98 (60-); Glucose, Blood 231 mg/dL (70-99); Potassium, Blood 2.9 mmol/L (3.5-5.5); Sodium, Blood 128 mmol/L (136-145); Vancomycin, Trough 16.5 ug/mL (5.0-10.0)
[2024-02-28] MEDS ORDERED: Potassium Chl 20MEQ/Water100ML 100 ML IV SCH (07:55)
--- NOTE | 2024-02-28 07:59 | NUR ---
NOTE: PATIENT CURRENTLY ON Q6 ACCU CHECK. NOTIFIED DR. BRIONNA green THIS CONCERN. RECEIVED ORDER TO CHANGED TO ACCU CHECK AC/HS c HIGH SLIDING SCALE COVERAGE TID.
[2024-02-28] MEDS ORDERED: Potassium Chloride 20 MEQ TabCR PO SCH (08:00)
[2024-02-28 08:11] VITALS: BP 130/71
[2024-02-28] MEDS ORDERED: Losartan Potassium 25 MG Tab PO SCH (09:00)
[2024-02-28] MEDS ORDERED: Empagliflozin 10 MG TAB PO SCH (09:00)
[2024-02-28] MEDS ORDERED: Insulin Glargine-Yfgn 100 Unit/mL 3 ML SYR SC SCH (09:00)
[2024-02-28] MEDS ORDERED: Insulin Human Lispro 100 Units/ML 3ML Syringe SC SCH (11:30)
--- NOTE | 2024-02-28 13:54 | NUR ---
NOTE: PATIENT LEFT THE ROOM AT 1350 VIA WHEELCHAIR TO IMAGING.
[2024-02-28 14:30] VITALS: BP 146/107
--- NOTE | 2024-02-28 14:35 | NUR ---
NOTE: PATIENT SCHEDULED AMPUTATION TO L FOOT WAS CANCELLED ON 02/27/24 D/T CONCERNED OF LICE INFESTATION. LASTS DECTATION BY DR. PENA ON 02/27/24 STATED, RECONSIDERED FOR L AMPUTATION ON SUNDAY. CALLED DR. QUEVEDO (PODIATRY ON-CALL) TO CLARIFY THE PLAN OF CARE. PER DR. QUEVEDO KEEP PATIENT NPO AT RI AND HE WILL TALK TO DR. PENA.
[2024-02-28 16:30] VITALS: BP 136/78
--- NOTE | 2024-02-28 17:53 | NUR ---
SHIFT SUMMARY: PATIENT A/OX3, HAS FLAT AFFECT, COOPERATIVE c CARE. PATIENT REPORTS PAIN TO NECK, X-RAY TO SPINE WAS DONE TODAY c NEGATIVE RESULT. PATIENT DENIES CP/PRESSURE, SOB, N/V AND DIZZINESS. PATIENT BLOOD SUGAR ELEVATED; 262 BEFORE BREAKFAST, 342 BEFORE LUNCH AND 220 BEFORE DINNER, MEDICATED c INSULIN PER EMAR. PATIENT HAS GOOD APPETITE, CONTINENT OF BLADDER AND USES URINAL IN BED INDEPENDENTLY. PER DR. QUEVEDO TO HAVE PATIENT NPO AT ME FOR POSSIBLE L FOOT AMPUTEE TOMORROW. PATIENT RECEIVED SCHEDULED MEDS PER EMAR. VITAL SIGNS REVIEWED. BED ALARM ON FOR SAFETY. CALL LIGHT IN REACH.
[2024-02-28 20:09] VITALS: BP 124/80
[2024-02-29] VITALS (18 sets, daily range): BP systolic 91–151; BP diastolic 63–86
[2024-02-29] MEDS ORDERED: Ketorolac Tromethamine 15mg Vial IV ONE (05:50)
--- NOTE | 2024-02-29 06:08 | NUR ---
SHIFT SUMMARY PT A&Ox3. PT C/O HEAD/NECK PAIN T/O NIGHT. TYLENOL HAD LITTLE EFFECT ON PAIN. ONE TIME ORDER GIVEN FOR IV TORADOL. CONTINUING IV ABX. PT PICKED AT SCAB ON KNEES DURING THE NIGHT. NPO AT MIDNIGHT FOR SURGERY IN AM. VSS. BED ALARM ON. BED IN LOWEST POSITION AND CALL LIGHT IN REACH.
[2024-02-29 06:32] LABS: Bun/Creatinine Ratio 32.4 (12.0-20.0); Calcium, Blood 8.7 mg/dL (8.5-10.1); Creatinine, Blood 0.83 mg/dL (0.60-1.20); Potassium, Blood 3.1 mmol/L (3.5-5.5)
[2024-02-29] MEDS ORDERED: Potassium Chl 20MEQ/Water100ML 100 ML IV SCH (07:45)
[2024-02-29] MEDS ORDERED: Ketorolac Tromethamine 15mg Vial IV PRN (08:55)
[2024-02-29] MEDS ORDERED: Lactated Ringer's 1,000 ML IV SCH (14:40)
[2024-02-29] MEDS ORDERED: Bupivacaine 0.5% HCl 5 MG/ML 30MLVIAL ONE (14:45)
[2024-02-29] MEDS ORDERED: Lidocaine HCl 1% 30 ML SDV ONE (14:45)
--- NOTE | 2024-02-29 14:51 | NUR ---
NOTE: PATIENT LEFT THE ROOM AT 1449 VIA GURNEY TO OR FOR L FOOT AMPUTATION.
[2024-02-29] MEDS ORDERED: NS 500 ML IV SCH (15:00)
[2024-02-29] MEDS ORDERED: Ipratropium/Albuterol SulF 2.5-0.5MG/3 ML Amp INH ONE (15:00)
--- NOTE | 2024-02-29 15:02 | NUR ---
PT TO DAY SURGERY WITH 20G IV IN UPPER LEFT ARM
[2024-02-29] MEDS ORDERED: FentaNYL Citrate 50 MCG/ML 2 ML Injection ONE ×2 (15:10→17:07)
[2024-02-29] MEDS ORDERED: propofoL 20 ML IV ONE (15:10)
[2024-02-29] MEDS ORDERED: Ondansetron HCl 2 MG / ML 2ML Vial ONE (15:11)
[2024-02-29] MEDS ORDERED: Albuterol 2.5 MG/3 ML VIAL INH PRN (15:15)
[2024-02-29] MEDS ORDERED: HYDROmorphone HCl/Pf 1MG SYR IV PRN (15:15)
[2024-02-29] MEDS ORDERED: FentaNYL Citrate 50 MCG/ML 2 ML Injection IV PRN (15:15)
[2024-02-29] MEDS ORDERED: Droperidol 5 mg/2 ml Vial IV PRN (15:20)
[2024-02-29] MEDS ORDERED: Phenylephrine HCl 100 MCG/ML-NS 10MLSYR (1MG/10ML) ONE (15:31)
[2024-02-29] MEDS ORDERED: Ketorolac Tromethamine 30mg Vial ONE (15:32)
--- NOTE | 2024-02-29 16:29 | NUR ---
SHIFT SUMMARY: PATIENT HAS HAD NO NEW ACUTE CHANGES THIS SHIFT. PATIENT REPORTS PAIN TO NECK 4/10, OFFERED PAIN MEDS PER EMAR, BUT DECLINE. PATIENT K-3.1 LAB RESULT THIS AM, RECEIVED PO AND IV K PER ORDER, PLAN TO HAVE REPEAT LAB DRAWN AT 1700. PATIENT RECEIVED SCHEDULED MEDS PER EMAR. PATIENT NPO SINCE DC FOR POSSIBLE L FOOT AMPUTEE SOMETIMES TODAY. PATIENT LEFT THE ROOM AT 1449 TO OR.
[2024-02-29] MEDS ORDERED: Midazolam HCl 1MG / ML 2ML Vial ONE (16:47)
--- NOTE | 2024-02-29 18:19 | NUR ---
ADDITIONAL NOTE: PATIENT ARRIVES IN ROOM AT 1754 VIA GURNEY FROM PACU FOR POST L METATARSAL AMPUTEE. PATIENT TRANSFERRED TO BED USING SLIDER SHEET c 4 MAX ASSIST. PATIENT HAS SKYE WRAP DRESSING TO L FOOT C/D/I. PATIENT ABLE TO WIGGLE HIS L FOOT AND REPORTS SENSATIONS INTACT, BUT DENIES PAIN AT THIS TIME. BLE'S ELEVATED ON PILLOWS. SCD'S PLACED TO R LEG. POST-OP VITALS TAKEN. PATIENT REQUESTING FOOD AND STATED "I NEED A LOTS OF FOOD. I'M STARVING." PATIENT'S DINNER FOOD TRAY SERVED c ADDITIONAL WHOLE ROAST BEEF SANDWICH c CONDIMENTS AND ICE CREAM PER REQUEST. BED ALARM ON FOR SAFETY. CALL LIGHT IN REACH.
[2024-02-29 18:37] LABS: Vancomycin, Trough 20.6 ug/mL (5.0-10.0)
[2024-02-29] MEDS ORDERED: Vancomycin HCL 750 MG in NS 250 ML IV SCH (19:00)
[2024-03-01] VITALS (8 sets, daily range): BP systolic 90–135; BP diastolic 56–77
[2024-03-01 00:48] LABS: Hematocrit 31.3 % (37.0-53.0); Hemoglobin 10.2 g/dL (13.5-17.5)
[2024-03-01 01:03] LABS: Bun/Creatinine Ratio 27.9 (12.0-20.0); Creatinine, Blood 1.04 mg/dL (0.60-1.20); Potassium, Blood 5.3 mmol/L (3.5-5.5)
--- NOTE | 2024-03-01 05:58 | NUR ---
SHIFT SUMMARY PT ALERT AND ORIENTED TIMES 3-4. PT HAD TWO TOES AMPUTATED FROM LEFT FOOT. AT ONE POINT IN THE NIGHT PT HAD GOTTEN UP FROM BED. LOAN OPERATIONS SPECIALIST REPORTED BACK TO NURSE STATING PT S FOOT WAS BLEEDING THROUGH HIS BANDAGED. WITH CHARGE NURSE HELP, TOOK BANDAGE OFF TO REDRESS. LEFT FOOT WAS BLEEDING PRESSISTANTLY. CALLED HOUSING INSPECTOR TO SEE IF DR WANTED TO LOOK AT PT. DR ADVISED TO KEEP PRESSURE ON IT AND IF IT DOES NOT RESOLVE ASK FOR SURG CONSULT. BLEEDING DID STOP AND PT ABLE TO GET REST AND CLEANED UP. BED IN LOW POSITION, CALL LIGHT WITHIN REACH, RAILS TIMES 2.
[2024-03-01] MEDS ORDERED: Furosemide 40 MG Tab PO SCH (09:00)
[2024-03-01] MEDS ORDERED: Spironolactone 25 MG Tab PO SCH (09:00)
[2024-03-01] MEDS ORDERED: Torsemide 20 MG TAB PO SCH (09:00)
[2024-03-01] MEDS ORDERED: Ipratropium/Albuterol SulF 2.5-0.5MG/3 ML Amp INH PRN (10:30)
[2024-03-01 15:13] LABS: Hematocrit 22.7 % (37.0-53.0); Hemoglobin 7.3 g/dL (13.5-17.5); Mean Corpuscular HGB 25.9 pg (26.0-34.0); Mean Corpuscular HGB Conc 32.2 g/dL (31.5-36.5); Mean Corpuscular Volume 81 fL (80-100); Mean Platelet Volume 10.3 fL (9.1-12.4); Platelet Count 460 K/mm3 (150-400); RDW Coefficient Variation 15.1 % (11.7-14.2); RDW Standard Deviation 44.2 fL (35.1-46.3); Red Blood Cell Count 2.82 M/mm3 (4.30-5.90); White Blood Cell Count 16.86 K/mm3 (4.00-11.30)
--- NOTE | 2024-03-01 19:29 | NUR ---
SHIFT SUMMARY: PATIENT EDUCATED ON NWB TO LEFT FOOT. PATIENT TRANSFERRED HIMSELF TO [facility] [place], [place], NOTED HIS L FOOT POST-OP AMPUTATION STARTED BLEEDING c COPIOUS AMOUNT OF BLOOD. THIS RN REINFORCED DRESSING TO L FOOT AND ELEVATED ON PILLOWS. DR. PENA AND DR. STATON NOTIFIED c THIS CONCERNED. PER DR. PENA HE WILL COME TO SEE THE PATIENT TOMORROW. DR. STATON CAME AND SAW THE PATIENT IN ROOM, OREDERED LAB DRAWN. PATIENT H/H DROPPED FROM 7.3/22.[address] STATON c LAB RESULT. RECEIVED ORDER TO INFUSED 2 BAG OF FROZEN PLASMA AND 1 UNIT OF PRBC AND HAVE REPEAT LAB DRAWN AND HOUR LATER OF PRBC COMPLETED. FROZEN PLASMA STARTED AT 1845. VITALS TAKEN. PATIENT A/O TO SELF, CONFUSED. BED ALARM ON FOR SAFETY. CALL LIGHT IN REACH. BEDSIDE REPORTS GIVEN TO [place] RNMIKE.
[2024-03-01] MEDS ORDERED: Vancomycin HCL 750 MG in NS 250 ML IV SCH (22:00)
[2024-03-02 02:34] VITALS: BP 120/71
[2024-03-02 06:39] LABS: BASOPHILS ABSOLUTE AUTO 0.06 K/mm3 (0.00-0.23); BASOPHILS PERCENT AUTO 0 % (0-2); EOSINOPHILS ABSOLUTE AUTO 0.09 K/mm3 (0.00-0.68); EOSINOPHILS PERCENT AUTO 1 % (0-6); Hematocrit 23.3 % (37.0-53.0); Hemoglobin 7.7 g/dL (13.5-17.5); IMMATURE GRAN ABSOLUTE AUTO 0.34 K/mm3 (0.00-0.10); IMMATURE GRAN PERCENT AUTO 2 % (0-1); LYMPHOCYTES ABSOLUTE AUTO 1.73 K/mm3 (0.84-5.20); LYMPHOCYTES PERCENT AUTO 11 % (21-46); MONOCYTES ABSOLUTE AUTO 1.37 K/mm3 (0.16-1.47); MONOCYTES PERCENT AUTO 9 % (4-13); Mean Corpuscular HGB 26.4 pg (26.0-34.0); Mean Corpuscular Volume 80 fL (80-100); Mean Platelet Volume 10.4 fL (9.1-12.4); NEUTROPHILS ABSOLUTE AUTO 12.23 K/mm3 (1.96-9.15); NEUTROPHILS PERCENT AUTO 77 % (41-73); Platelet Count 513 K/mm3 (150-400); RDW Coefficient Variation 14.6 % (11.7-14.2); RDW Standard Deviation 42.9 fL (35.1-46.3); Red Blood Cell Count 2.92 M/mm3 (4.30-5.90); White Blood Cell Count 15.82 K/mm3 (4.00-11.30)
--- NOTE | 2024-03-02 06:40 | NUR ---
SHIFT SUMMARY PT ALERT AND ORIENTED TIMES 2-3. PT HAD TWO TOES AMPUTATED FROM LEFT FOOT. PT HAD TWO PLASMA INFUSIONS AND ONE BAG OF BLOOD GIVEN. PT TOLERATED WELL. LABS ORDERED. BED IN LOW POSITION, CALL LIGHT WITHIN REACH, RAILS TIMES 2.
[2024-03-02 08:38] VITALS: BP 136/83
[2024-03-02 09:17] LABS: Bun/Creatinine Ratio 34.6 (12.0-20.0); Calcium, Blood 8.1 mg/dL (8.5-10.1); Creatinine, Blood 0.9 mg/dL (0.60-1.20); Magnesium, Blood 2.2 mg/dL (1.6-2.4); Potassium, Blood 4.2 mmol/L (3.5-5.5)
[2024-03-02 09:36] LABS: Vancomycin, Trough 20.3 ug/mL (5.0-10.0)
[2024-03-02 10:32] VITALS: BP 141/86
[2024-03-02] MEDS ORDERED: Vancomycin HCL 1,500 MG in NS 250 ML IV SCH (14:13)
[2024-03-02 16:17] VITALS: BP 119/60
--- NOTE | 2024-03-02 16:30 | NUR ---
SHIFT SUMMARY PT IS A/OX2-3, CONFUSION AT TIMES OF LOCATION AND SITUATION. PT REMAINS ON RA, SATS MAINTAINING >95%. VSS. PT SLEEPING, DROWSY YET [place], THROUGHOUT MOST OF THE SHIFT. PT EATING/DRINKING VERY LITTLE THIS SHIFT, A FEW BITES OF BREAKFAST AND THE MILK, REFUSED LUNCH. PT REMAINS INCONTINENT OF BLADDER. DR PENA AT BEDSIDE THIS EVENING, DRESSINGS NOT CHANGED. DR PENA TO CHANGE DRESSINGS TOMORROW. DR BEAVER NOTIFIED OF PT INCREASED DROWSINESS, STATES SHE WILL REVIEW CHART.
--- NOTE | 2024-03-02 18:47 | NUR ---
NOTE: PATIENT HAS BEEN INCONTINENT OF BLADDER T/O SHIFT, ATTENDS CHANGED PRN. THIS RN NOTED HARD/FIRM UPON MILD PALPATION TO SUPRAPUBIC REGION . PATIENT REPORTS TENDERNESS/DISCOMFORT. BLADDER SCAN WERE PERFORMED, IT APPEARS 999 MLS URINE IN BLADDER. NOTIFIED DR. SD green THIS CONCERNED, ORDERED IN/OUT CATH. PATIENT EDUCATED c PROCEDURE RISK/BENEFITS. PATIENT VERBALIZED UNDERSTANDING. IN/OUT CATH WERE PEROFMORMED, MAINTAIN STERILE FIELD T/O THE PROCESS. THIS RN ABLE TO DRAINED 900 MLS, DARK JORDAN COLOR URINE OUT.
[2024-03-02 20:28] VITALS: BP 108/68
[2024-03-02 20:56] LABS: Hematocrit 21.6 % (37.0-53.0); Hemoglobin 7.1 g/dL (13.5-17.5)
[2024-03-03 02:26] VITALS: BP 143/91
[2024-03-03 06:34] LABS: Hematocrit 22.9 % (37.0-53.0); Hemoglobin 7.5 g/dL (13.5-17.5); Mean Corpuscular HGB 26.4 pg (26.0-34.0); Mean Corpuscular HGB Conc 32.8 g/dL (31.5-36.5); Mean Corpuscular Volume 81 fL (80-100); Mean Platelet Volume 9.9 fL (9.1-12.4); Platelet Count 560 K/mm3 (150-400); RDW Standard Deviation 44.4 fL (35.1-46.3); Red Blood Cell Count 2.84 M/mm3 (4.30-5.90); White Blood Cell Count 16.79 K/mm3 (4.00-11.30)
[2024-03-03 06:59] LABS: Albumin, Blood 1.7 g/dL (3.4-5.0); Anion Gap 11 mmol/L (3-11); Blood Urea Nitrogen 32 mg/dL (8-24); Bun/Creatinine Ratio 33.3 (12.0-20.0); CO2, Blood 26 mmol/L (21-32); Calcium, Blood 8.4 mg/dL (8.5-10.1); Chloride, Blood 103 mmol/L (98-108); Creatinine, Blood 0.96 mg/dL (0.60-1.20); Glomerular Filtration Rate 89 (60-); Glucose, Blood 241 mg/dL (70-99); Phosphorus, Blood 3.6 mg/dL (2.5-4.9); Potassium, Blood 4.2 mmol/L (3.5-5.5); Sodium, Blood 136 mmol/L (136-145)
[2024-03-03 08:03] VITALS: BP 120/70
--- NOTE | 2024-03-03 09:26 | NUR ---
pt laying in bed with eyes closed, wakes easily, is eating breakfast this am, cooperative with care, follows commands well, lungs have exp wheezing t/o, resp even and unlabored, no cough noted, on 2 liters o2 via n/c, no cough noted, hrr, power glide to geovanny site is clear and patent, btx4, abd flat soft nontender, voids via urinal and briefs in place, skin has dressing to linn ortiz perla, call light in reach.
[2024-03-03] MEDS ORDERED: TraMADol HCl 50 MG Tab PO STA (09:43)
[2024-03-03] MEDS ORDERED: Ipratropium/Albuterol SulF 2.5-0.5MG/3 ML Amp INH PRN (09:45)
[2024-03-03] MEDS ORDERED: Albuterol 2.5 MG/3 ML VIAL INH PRN (09:45)
[2024-03-03] MEDS ORDERED: Ipratropium/Albuterol SulF 2.5-0.5MG/3 ML Amp INH SCH (09:50)
[2024-03-03] MEDS ORDERED: TraMADol HCl 50 MG Tab PO PRN (10:00)
[2024-03-03] MEDS ORDERED: GuaiFENesin 600 MG TabCR PO SCH (10:00)
[2024-03-03] MEDS ORDERED: Sod Ferric Gluc Complx/Sucrose 125 MG in NS 100 ML IV SCH (11:00)
[2024-03-03] MEDS ORDERED: Lidocaine 2% Jelly Uro-Jet UR ONE (11:05)
[2024-03-03 16:51] VITALS: BP 111/71
--- NOTE | 2024-03-03 18:06 | NUR ---
pt laying in bed all day, watching tv, sleeps at times, wants lots of snacks, Dr. Hurt in to see him and change the dressing. no further changes this shift. call light in reach.
[2024-03-03 20:49] VITALS: BP 110/73
[2024-03-03] MEDS ORDERED: Arginine/Glutamine/Calcium Hmb 1 Packet PO SCH (21:00)
[2024-03-03] MEDS ORDERED: Tamsulosin HCl 0.4 MG Cap PO SCH (21:00)
[2024-03-04 02:20] VITALS: BP 91/77
--- NOTE | 2024-03-04 04:39 | NUR ---
SHIFT SUMMARY PATIENT SLEPT IN LONG INTERVALS, HAS STAYED IN THE BED AND NOT TRIED TO STAND. ATE A COUPLE OF TIMES AND MEDICATED FOR PAIN JUST ONCE, OF THE ENTRY.
[2024-03-04 07:50] VITALS: BP 123/70
[2024-03-04] MEDS ORDERED: Furosemide 40 MG Tab PO SCH (09:00)
[2024-03-04] MEDS ORDERED: Spironolactone 25 MG Tab PO SCH (09:00)
[2024-03-04 13:07] LABS: Hematocrit 22.7 % (37.0-53.0); Hemoglobin 7.3 g/dL (13.5-17.5); Mean Corpuscular HGB 26.6 pg (26.0-34.0); Mean Corpuscular HGB Conc 32.2 g/dL (31.5-36.5); Mean Corpuscular Volume 83 fL (80-100); Mean Platelet Volume 9.8 fL (9.1-12.4); Platelet Count 648 K/mm3 (150-400); RDW Coefficient Variation 15.4 % (11.7-14.2); RDW Standard Deviation 46.4 fL (35.1-46.3); Red Blood Cell Count 2.74 M/mm3 (4.30-5.90); White Blood Cell Count 16.97 K/mm3 (4.00-11.30)
[2024-03-04 13:42] LABS: Vancomycin, Trough 14.8 ug/mL (5.0-10.0)
[2024-03-04 13:43] LABS: Albumin, Blood 1.7 g/dL (3.4-5.0); Anion Gap 11 mmol/L (3-11); Blood Urea Nitrogen 31 mg/dL (8-24); Bun/Creatinine Ratio 37.9 (12.0-20.0); CO2, Blood 24 mmol/L (21-32); Calcium, Blood 8.5 mg/dL (8.5-10.1); Chloride, Blood 103 mmol/L (98-108); Creatinine, Blood 0.82 mg/dL (0.60-1.20); Glomerular Filtration Rate 99 (60-); Glucose, Blood 332 mg/dL (70-99); Phosphorus, Blood 3.1 mg/dL (2.5-4.9); Potassium, Blood 4.2 mmol/L (3.5-5.5); Sodium, Blood 134 mmol/L (136-145)
[2024-03-04 13:55] LABS: BASOPHILS PERCENT MAN 0 % (0-2); EOSINOPHILS ABSOLUTE MAN 0.33 K/mm3 (0.00-0.68); EOSINOPHILS PERCENT MAN 2 % (0-6); LYMPHOCYTES ABSOLUTE MAN 1.69 K/mm3 (0.84-5.20); LYMPHOCYTES PERCENT MAN 10 % (21-46); METAMYELOCYTE ABSOLUTE MAN 0.16 K/mm3 (0.00-0.00); METAMYELOCYTE PERCENT MAN 1 % (0-0); MONOCYTES ABSOLUTE MAN 0.67 K/mm3 (0.16-1.47); MONOCYTES PERCENT MAN 4 % (4-13); MYELOCYTE ABSOLUTE MAN 0.16 K/mm3 (0.00-0.00); MYELOCYTE PERCENT MAN 1 % (0-0); NEUTROPHILS ABSOLUTE MAN 13.91 K/mm3 (1.96-9.15); SEG NEUTROPHILS PERCENT MAN 82 % (41-73); TOTAL CELLS COUNTED 100
[2024-03-04 15:32] VITALS: BP 131/69
--- NOTE | 2024-03-04 18:26 | NUR ---
SHIFT SUMMARY PATIENT ALERT AND INTERACTIVE. EASILY IRRITABLE AND VERBALIZING A HEADACHE. PATIENT SLEEPING WHEN UNATTENDED. PATIENT ASKING FOR FOOD WHEN AWAKE. PATIENT REQUESTING INAPPROPRIATE FOODS RELATED TO DIET. PATIENT MEDICATED WITH PAIN MEDS WITH NO CHANGE IN PAIN WHEN QUESTIONED. WOUND CARE PROVIDED TO L FOOT. AND DRESSING REAPPLIED. NO BLEEDING NOTED. WOUND CLEANSED AND DRY DRESSING APPLIED. PACKING NOTED ON IN PLACE ON BOTTOM OF FOOT. THERAPY TO START WORKING WITH PATIENT TOMORROW. CARE FACILITY CONCERNED ABOUT STAIRTS THAT PATIENT WILL HAVE TO MANAGE. PATIENT LIVES ON [place]OND STORY OF FACILITY AND DOES NOT HAVE AN ELEVATOR.
[2024-03-04 19:27] VITALS: BP 121/70
[2024-03-05 02:09] VITALS: BP 119/69
--- NOTE | 2024-03-05 04:11 | NUR ---
PATIENT CALLING OUT THIS SHIFT FOR HELP TO TAKE A DRINK AND TO PUSH THE BUTTON ON THE BED TO MOVE HIMSELF TO A SITTED POSITION-EDUCATED PATIENT ON THE IMPORTANCE OF DOING MUCH HE CAN FOR HIMSELF PATIENT IS ABLE AND HAS BEEN FEEDING HIMSELF WELL BEING ABLE TO GRAB A CUP AND TAKE A DRINK. PATIENT RESPONDS WITH HE CANT SQUEEZE ANYTHING PATIENT ABLE TO SQUEEZE THIS RN'S HANDS W/O DIFFICULTY. ENCOURGAED THIS PATIENT TO DO MUCH POSSIBLE FOR HIMSELF SO THAT HE DOES NOT DECREASE HIS ABILITY.
--- NOTE | 2024-03-05 04:21 | NUR ---
SHIFT SUMMARY. PATIENT IS A&OX3-4. PATIENT IS NON-WEIGHT BEARING TO LEFT LEG UNTIL PT WORKS WITH PATIENT-POST OP SHOE IN PATIENTS ROOM ON COMPUTER. PATIENT HAS RESTED ON AND OFF T/O THE SHIFT WITH RESPIRATIONS EQUAL AND UNLABORED. PATIENT ASKED SEVERAL TIMES FOR AN ENSURE-PATIENT HAD 1 ENSURE AND WAS EDUCATED ON DECREASING SUGAR INTAKE TO IMPROVE HIS BLOOD SUGAR AND HEALING TIME. PATIENT CALLING OUT THIS SHIFT-SEE PREVIOUS NOTE. PATIENTS BED IS LOCKED IN THE LOWEST POSITION WITH CALL LIGHT IN REACH. CARE IS ONGOING.
--- NOTE | 2024-03-05 05:03 | NUR ---
PATIENT CRYING OUT AND STATING "I WANT TO JUST , I WANT TO GO TO SLEEP AND NOT WAKE UP".
[2024-03-05 05:36] LABS: Hematocrit 24.6 % (37.0-53.0); Hemoglobin 7.8 g/dL (13.5-17.5); Mean Corpuscular HGB 26.1 pg (26.0-34.0); Mean Corpuscular HGB Conc 31.7 g/dL (31.5-36.5); Mean Corpuscular Volume 82 fL (80-100); Mean Platelet Volume 10.1 fL (9.1-12.4); NRBC ABSOLUTE 0.03 K/mm3 (0.00-0.02); NRBC Auto 0.1 /100 WBC (0.0-0.2); Platelet Count 776 K/mm3 (150-400); RDW Coefficient Variation 15.7 % (11.7-14.2); RDW Standard Deviation 45.1 fL (35.1-46.3); Red Blood Cell Count 2.99 M/mm3 (4.30-5.90); White Blood Cell Count 21.42 K/mm3 (4.00-11.30)
[2024-03-05 06:07] LABS: Bun/Creatinine Ratio 34.3 (12.0-20.0); Calcium, Blood 8.9 mg/dL (8.5-10.1); Creatinine, Blood 1.08 mg/dL (0.60-1.20); Potassium, Blood 4.5 mmol/L (3.5-5.5)
[2024-03-05 06:20] LABS: BASOPHILS ABSOLUTE MAN 0.21 K/mm3 (0.00-0.23); BASOPHILS PERCENT MAN 1 % (0-2); EOSINOPHILS ABSOLUTE MAN 0.42 K/mm3 (0.00-0.68); EOSINOPHILS PERCENT MAN 2 % (0-6); LYMPHOCYTES ABSOLUTE MAN 3.64 K/mm3 (0.84-5.20); LYMPHOCYTES PERCENT MAN 17 % (21-46); METAMYELOCYTE ABSOLUTE MAN 0.21 K/mm3 (0.00-0.00); METAMYELOCYTE PERCENT MAN 1 % (0-0); MONOCYTES ABSOLUTE MAN 1.71 K/mm3 (0.16-1.47); MONOCYTES PERCENT MAN 8 % (4-13); SEG NEUTROPHILS PERCENT MAN 71 % (41-73); TOTAL CELLS COUNTED 100
--- NOTE | 2024-03-05 06:26 | NUR ---
HOSPITALIST CONTACTED. HOSPITALIST CONTACED IN REGARDS TO PATIENTS SODIUM AT [address] MARTINEZ TO REVIEW PATIENTS CHART AND ADD ORDERS IF APPROPRIIATE.
[2024-03-05 07:38] VITALS: BP 131/68
[2024-03-05] MEDS ORDERED: Amoxicillin/Clavulanate K 875 MG Tab PO SCH (09:00)
[2024-03-05 15:46] VITALS: BP 119/67
--- NOTE | 2024-03-05 18:39 | NUR ---
SHIFT SUMMARY PATIENT ALERT AND INTERACTIVE. PATIENT EASILY IRRITABLE. RESISTANT TO DO MORE THAN STAND AT BEDSIDE WITH THERAPY. PATIENT NOT WANTING TO ORIGINALLY DO ANYTHING WITH OT. PATIENT CONTINUES TO VERBALIZE PAIN BUT SLEEPING WHEN UNATTENDED. PATIENT MEDICATED WITH PAIN MEDS PER ORDERS. PATIENT YELLING OUT AT TIMES FOR DRINKS WITH DRINKS AVAILABLE ON BEDSIDE TABLE. PATIENT WANTING STAFF TO HELP HIM WITH DRINKS, BUT IS CAPABLE OF FEEDING AND DRINKING INDEPENDENTLY. [facility] EVALUATED PATIENT AND HAVE CONCERNS ABOUT RETURNING. PATIENT LIVES ON [address] AND THERE IS NO ELEVATOR. PATIENT HAS NOT BEEN OUT OF BED TODAY. DISCUSSED DISCHARGE PLAN WITH PATIENT. PATIENT VERBALIZES UNDERSTANDING THAT HE WILL NEED TO WORK WITH THERAPY TO GO TO REHAB.
[2024-03-05 19:58] VITALS: BP 103/58
--- NOTE | 2024-03-06 04:26 | NUR ---
SHIFT SUMMARY. PATIENT IS A&OX3. PATIENT COOPERATIVE WITH CARE. PATIENT HAS SLEPT T/O THE NIGHT WITH RESPIRATIONS EQUAL AND UNLABORED. PATIENT TAKES MEDICATIONS WHOLE WITH WATER. PATIENT DID NOT GET UP OUT OF BED THIS SHIFT. PATIENTS BED IS LOCKED IN THE LOWEST POSITION WITH CALL LIGHT IN REACH. CARE IS ONGOIN.
[2024-03-06 05:19] VITALS: BP 113/59
[2024-03-06 08:10] VITALS: BP 131/73
[2024-03-06 09:05] LABS: Hematocrit 25.4 % (37.0-53.0); Hemoglobin 8.2 g/dL (13.5-17.5); Mean Corpuscular HGB 26.1 pg (26.0-34.0); Mean Corpuscular HGB Conc 32.3 g/dL (31.5-36.5); Mean Corpuscular Volume 81 fL (80-100); Mean Platelet Volume 9.3 fL (9.1-12.4); NRBC ABSOLUTE 0.02 K/mm3 (0.00-0.02); NRBC Auto 0.1 /100 WBC (0.0-0.2); Platelet Count 845 K/mm3 (150-400); RDW Coefficient Variation 15.9 % (11.7-14.2); RDW Standard Deviation 45.3 fL (35.1-46.3); Red Blood Cell Count 3.14 M/mm3 (4.30-5.90)
[2024-03-06 09:33] LABS: Bun/Creatinine Ratio 36.5 (12.0-20.0); Calcium, Blood 9.1 mg/dL (8.5-10.1); Creatinine, Blood 0.9 mg/dL (0.60-1.20); Potassium, Blood 4.1 mmol/L (3.5-5.5)
[2024-03-06] MEDS ORDERED: Insulin Human Lispro 100 Units/ML 3ML Syringe SC SCH (11:30)
[2024-03-06 15:06] VITALS: BP 135/82
--- NOTE | 2024-03-06 18:44 | NUR ---
SHIFT SUMMARY: PT A/O X4. NO ACUTE CHANGES THIS SHIFT. PT CONTINUES TO REFUSE THERAPY. ATTEMPTED TO EDUCATE PT THAT HE LIVES IN FACILITY WITH NO ELEVATOR AND MANY STAIRS. PT STATED HE IS AWARE BUT IS "HUNGRY AND IN PAIN." CANO IN PLACE DRAINING LIGHT YELLOW URINE TO GRAVITY. CALL LIGHT IN REACH. BED IN LOWEST POSITION.
[2024-03-06 20:02] VITALS: BP 110/71
[2024-03-07 04:56] VITALS: BP 141/79
--- NOTE | 2024-03-07 05:13 | NUR ---
SHIFT SUMMARY 63 YR M ADMITTED ON 02/26/24. FULL CODE. NO ACUTE CHANGES THIS SHIFT. PT C/O CHEST/RIB PAIN AND MEDICATED PER EMAR WITH GOOD RESULTS. HIS APPETITE IS GOOD AND HE ATE MOST OF HIS DINNER WELL mCdONALDS FOOD THAT WAS BROUGHT TO HIM. UNKNOWN WHO OR WHEN FOOD WAS BROUGHT IN. CANO IS PATENT AND DRAINING WELL. PT OUTPUT THIS SHIFT WAS 7800. VERIFIED INPUT WAS 4418 BUT IT IS UNKNOWN IF THIS IS FULLY ACCURATE PT WAS BROUGHT IN DRINKS WITH HIS MCDONALDS. AFTER EVENING MEDS PT SLEPT OFF AND ON THROUGHOUT THE NIGHT. BED IN LOW POSITION AND CALL LIGHT IN REACH.
[2024-03-07 05:33] LABS: Hematocrit 25.6 % (37.0-53.0); Hemoglobin 8.1 g/dL (13.5-17.5); Mean Corpuscular HGB Conc 31.6 g/dL (31.5-36.5); Mean Corpuscular Volume 82 fL (80-100); Mean Platelet Volume 9.7 fL (9.1-12.4); NRBC ABSOLUTE 0.02 K/mm3 (0.00-0.02); NRBC Auto 0.1 /100 WBC (0.0-0.2); Platelet Count 880 K/mm3 (150-400); RDW Coefficient Variation 16.4 % (11.7-14.2); Red Blood Cell Count 3.12 M/mm3 (4.30-5.90); White Blood Cell Count 19.63 K/mm3 (4.00-11.30)
[2024-03-07 05:55] LABS: Calcium, Blood 8.9 mg/dL (8.5-10.1); Creatinine, Blood 0.81 mg/dL (0.60-1.20); Potassium, Blood 4.4 mmol/L (3.5-5.5)
[2024-03-07 06:11] LABS: BAND PERCENT MAN 3 % (0-8); BASOPHILS PERCENT MAN 0 % (0-2); EOSINOPHILS ABSOLUTE MAN 0.19 K/mm3 (0.00-0.68); EOSINOPHILS PERCENT MAN 1 % (0-6); LYMPHOCYTES ABSOLUTE MAN 1.96 K/mm3 (0.84-5.20); LYMPHOCYTES PERCENT MAN 10 % (21-46); MONOCYTES ABSOLUTE MAN 1.37 K/mm3 (0.16-1.47); MONOCYTES PERCENT MAN 7 % (4-13); MYELOCYTE ABSOLUTE MAN 0.78 K/mm3 (0.00-0.00); MYELOCYTE PERCENT MAN 4 % (0-0); NEUTROPHILS ABSOLUTE MAN 15.31 K/mm3 (1.96-9.15); SEG NEUTROPHILS PERCENT MAN 75 % (41-73); TOTAL CELLS COUNTED 100
[2024-03-07 07:26] VITALS: BP 130/72
[2024-03-07] MEDS ORDERED: Insulin Glargine-Yfgn 100 Unit/mL 3 ML SYR SC SCH (09:00)
[2024-03-07 15:26] VITALS: BP 107/80
[2024-03-07 17:18] LABS: IMMATURE RETIC FRACTION 35.2 % (2.3-16.0); RETIC HGB EQUIVALENT 28.8 pg (28.20-36.60); RETICULOCYTE ABSOLUTE 0.226 M/mm3 (0.0200-0.1100); RETICULOCYTE COUNT PERCENT 6.87 % (0.50-2.50)
--- NOTE | 2024-03-07 18:01 | NUR ---
SHIFT SUMMARY: PT A/O X3. NO ACUTE CHANGES THIS SHIFT. PT WILLING TO WORK WITH PHYSICAL THERAPY THIS SHIFT. EDUCATED PT REGARDING DIABETIC DIET AND ELEVATED BLOOD SUGAR. L. FOOT DRESSING REMAINS C/D/I. CANO IN PLACE DRAINING YELLOW URINE TO GRAVITY. CALL LIGHT IN REACH. BED IN LOWEST POSITION.
[2024-03-07 20:05] VITALS: BP 105/72
[2024-03-08 01:45] VITALS: BP 123/75
--- NOTE | 2024-03-08 04:39 | NUR ---
SHIFT SUMMARY PATIENT HAD NO ACUTE CHANGES. AXOX 3 AND 2 ASSIST TO BSC. CANO DRAINING TO GRAVITY FOR RETENTION. POWERGLIDE RU ARM. CBG 192. ASK FOR FOOD/DRINK T/O SHIFT. DENIES CHEST PAIN, SOB, AND N/V. VSS/AFEBRILE. DRESSING TO LEFT FOOT C/D/I. CALL LIGHT IN REACH. BED IN LOWEST POSITION. WILL CONTINUE TO MONITOR UNTIL DAY SHIFT NURSE ASSUMES CARE.
[2024-03-08 06:00] LABS: BASOPHILS ABSOLUTE AUTO 0.09 K/mm3 (0.00-0.23); BASOPHILS PERCENT AUTO 1 % (0-2); EOSINOPHILS ABSOLUTE AUTO 0.23 K/mm3 (0.00-0.68); EOSINOPHILS PERCENT AUTO 1 % (0-6); Hemoglobin 8.9 g/dL (13.5-17.5); IMMATURE GRAN ABSOLUTE AUTO 0.76 K/mm3 (0.00-0.10); IMMATURE GRAN PERCENT AUTO 4 % (0-1); LYMPHOCYTES ABSOLUTE AUTO 2.25 K/mm3 (0.84-5.20); LYMPHOCYTES PERCENT AUTO 12 % (21-46); MONOCYTES ABSOLUTE AUTO 1.03 K/mm3 (0.16-1.47); MONOCYTES PERCENT AUTO 5 % (4-13); Mean Corpuscular HGB 26.4 pg (26.0-34.0); Mean Corpuscular HGB Conc 31.8 g/dL (31.5-36.5); Mean Corpuscular Volume 83 fL (80-100); Mean Platelet Volume 8.9 fL (9.1-12.4); NEUTROPHILS ABSOLUTE AUTO 14.63 K/mm3 (1.96-9.15); NEUTROPHILS PERCENT AUTO 77 % (41-73); Platelet Count 942 K/mm3 (150-400); RDW Standard Deviation 47.8 fL (35.1-46.3); Red Blood Cell Count 3.37 M/mm3 (4.30-5.90); White Blood Cell Count 18.99 K/mm3 (4.00-11.30)
[2024-03-08 06:25] LABS: Albumin, Blood 2.1 g/dL (3.4-5.0); Anion Gap 11 mmol/L (3-11); Blood Urea Nitrogen 46 mg/dL (8-24); Bun/Creatinine Ratio 56.2 (12.0-20.0); CO2, Blood 23 mmol/L (21-32); Calcium, Blood 9.4 mg/dL (8.5-10.1); Chloride, Blood 103 mmol/L (98-108); Creatinine, Blood 0.82 mg/dL (0.60-1.20); Glomerular Filtration Rate 99 (60-); Glucose, Blood 285 mg/dL (70-99); Phosphorus, Blood 4.4 mg/dL (2.5-4.9); Potassium, Blood 4.2 mmol/L (3.5-5.5); Sodium, Blood 133 mmol/L (136-145)
[2024-03-08 07:51] VITALS: BP 112/63
--- NOTE | 2024-03-08 08:44 | NUR ---
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
[2024-03-08 15:08] VITALS: BP 125/77
[2024-03-08 15:55] VITALS: BP 125/77
[2024-03-08 16:01] VITALS: BP 118/70
--- NOTE | 2024-03-08 18:06 | NUR ---
pt doing ok, asking for more food again, no further changes since the fall, did let Dr. Peters know what happened, call light in reach.
[2024-03-08 19:42] VITALS: BP 131/70
[2024-03-09 04:39] VITALS: BP 138/81
--- NOTE | 2024-03-09 04:47 | NUR ---
SHIFT SUMMARY PATIENT HAD NO ACUTE CHANGES. AXOX 3 AND 2 ASSIST TO BSC. CANO PATENT AND DRAINING TO GRAVITY. POWERGLIDE RU ARM INTACT. CBG 248. DENIES CHEST PAIN, SOB, AND N/V. REPORTED LEFT FOOT PAIN AND ULTRAM 50 MG GIVEN PER EMAR. ASKED FOR FOOD T/O SHIFT. AGITATED AT TIMES WHEN DENIED. CALL LIGHT IN REACH. BED IN LOWEST POSITION. WILL CONTINUE TO MONITOR UNTIL DAY SHIFT NURSE ASSUMES CARE.
[2024-03-09 07:53] VITALS: BP 122/71
[2024-03-09 08:15] LABS: BASOPHILS ABSOLUTE AUTO 0.07 K/mm3 (0.00-0.23); BASOPHILS PERCENT AUTO 0 % (0-2); EOSINOPHILS ABSOLUTE AUTO 0.11 K/mm3 (0.00-0.68); EOSINOPHILS PERCENT AUTO 1 % (0-6); Hematocrit 28.3 % (37.0-53.0); Hemoglobin 9.1 g/dL (13.5-17.5); IMMATURE GRAN ABSOLUTE AUTO 0.39 K/mm3 (0.00-0.10); IMMATURE GRAN PERCENT AUTO 2 % (0-1); LYMPHOCYTES ABSOLUTE AUTO 1.74 K/mm3 (0.84-5.20); LYMPHOCYTES PERCENT AUTO 11 % (21-46); MONOCYTES ABSOLUTE AUTO 0.82 K/mm3 (0.16-1.47); MONOCYTES PERCENT AUTO 5 % (4-13); Mean Corpuscular HGB 26.4 pg (26.0-34.0); Mean Corpuscular HGB Conc 32.2 g/dL (31.5-36.5); Mean Corpuscular Volume 82 fL (80-100); Mean Platelet Volume 8.8 fL (9.1-12.4); NEUTROPHILS ABSOLUTE AUTO 12.83 K/mm3 (1.96-9.15); NEUTROPHILS PERCENT AUTO 81 % (41-73); Platelet Count 931 K/mm3 (150-400); RDW Coefficient Variation 16.9 % (11.7-14.2); RDW Standard Deviation 47.5 fL (35.1-46.3); Red Blood Cell Count 3.45 M/mm3 (4.30-5.90); White Blood Cell Count 15.96 K/mm3 (4.00-11.30)
[2024-03-09 08:30] LABS: Albumin, Blood 2.1 g/dL (3.4-5.0); Albumin/Globulin Ratio 0.4 (0.8-1.8); Bilirubin, Total 0.2 mg/dL (0.1-1.0); Bun/Creatinine Ratio 59.8 (12.0-20.0); Calcium, Blood 9.2 mg/dL (8.5-10.1); Creatinine, Blood 0.77 mg/dL (0.60-1.20); Globulin, Blood 5.8 g/dL (2.2-4.0); Potassium, Blood 4.1 mmol/L (3.5-5.5); Total Protein, Blood 7.9 g/dL (6.4-8.2)
[2024-03-09] MEDS ORDERED: Insulin Glargine-Yfgn 100 Unit/mL 3 ML SYR SC SCH (09:00)
[2024-03-09 16:37] VITALS: BP 102/63
--- NOTE | 2024-03-09 17:56 | NUR ---
SHIFT SUMMARY: PT AOX4 A LITTLE CONFUSED AND ANXIOUS. IS TOLERATING MEDICATIONS WELL AND IS JUST ANXIOUS ABOUT HIS BIKE. CONSTANTLY ASKING FOR FOOD, HAS BEEN TOLERATING THE PROTEIN MAX ENSURES THAT HAVE LESS SUGAR IN THEM. HAS BEEN SLEEPING MOST OF THE DAY AFTER EXPRESSING THAT THEY HAVENT SLEPT WELL THE LAST FEW NIGHTS. WILL CALL APPROPRIATELY. BLOOD SUGARS HAVE BEEN MANAGED WITH INSULIN WELL. IN BED RESTING, BED IN LOWEST POSITION, CALL LIGHT IN REACH. CONTINUING CARE.
--- NOTE | 2024-03-09 18:01 | NUR ---
THIS CARDIAC NURSE SPECIALIST HAS REVIEWED AND AGREES WITH ALL NOTES AND ASSESSMENTS BY JUAQUIN PEREZ.
[2024-03-09 19:24] VITALS: BP 87/63
[2024-03-10 04:28] VITALS: BP 106/63
[2024-03-10 05:24] LABS: BASOPHILS ABSOLUTE AUTO 0.07 K/mm3 (0.00-0.23); BASOPHILS PERCENT AUTO 1 % (0-2); EOSINOPHILS ABSOLUTE AUTO 0.09 K/mm3 (0.00-0.68); EOSINOPHILS PERCENT AUTO 1 % (0-6); Hematocrit 30.4 % (37.0-53.0); Hemoglobin 9.6 g/dL (13.5-17.5); IMMATURE GRAN ABSOLUTE AUTO 0.34 K/mm3 (0.00-0.10); IMMATURE GRAN PERCENT AUTO 2 % (0-1); LYMPHOCYTES ABSOLUTE AUTO 1.71 K/mm3 (0.84-5.20); LYMPHOCYTES PERCENT AUTO 11 % (21-46); MONOCYTES ABSOLUTE AUTO 0.68 K/mm3 (0.16-1.47); MONOCYTES PERCENT AUTO 5 % (4-13); Mean Corpuscular HGB 26.4 pg (26.0-34.0); Mean Corpuscular HGB Conc 31.6 g/dL (31.5-36.5); Mean Corpuscular Volume 84 fL (80-100); Mean Platelet Volume 9.2 fL (9.1-12.4); NEUTROPHILS ABSOLUTE AUTO 12.19 K/mm3 (1.96-9.15); NEUTROPHILS PERCENT AUTO 81 % (41-73); Platelet Count 957 K/mm3 (150-400); RDW Coefficient Variation 16.9 % (11.7-14.2); RDW Standard Deviation 49.7 fL (35.1-46.3); Red Blood Cell Count 3.63 M/mm3 (4.30-5.90); White Blood Cell Count 15.08 K/mm3 (4.00-11.30)
[2024-03-10 05:51] LABS: Calcium, Blood 9.2 mg/dL (8.5-10.1); Creatinine, Blood 0.77 mg/dL (0.60-1.20); Potassium, Blood 4.4 mmol/L (3.5-5.5)
--- NOTE | 2024-03-10 06:34 | NUR ---
SHIFT SUMMARY AT START OF SHIFT, PT SLEEPING IN HIS BED. UPON ROUNDING AND MED PASS, PT WAS QUITE AGITATED ABOUT HIS DINNER TRAY. THIS RN EDUCATED PT HE COULD CALL DOWN TO KITCHEN TO CHANGE WHAT HE D BE RECEIVING FOR DINNER TO SOMETHING HE D BE HAPPY WITH. PT STATED I DON T WANT TO TALK ABOUT IT ANYMORE. PT LYING IN BED RESTING AT THIS TIME. PT HAS CONSISTENTLY ASKED FOR SNACKS THROUGHOUT THE NIGHT. HE HAS BEEN GIVEN SEVERAL SNACKS, AND CONTINUES TO ASK FOR MORE. PT HAS BEEN INSTRUCTED THAT THE SNACKS IN THE PANTRY ARE FOR ALL PT S ON THIS FLOOR, AND MUST BE GIVEN IN MODERATION TO OUR PT S SO THERE IS ENOUGH FOR ALL WHO MAY NEED THEM. PT ALSO REMINDED HE IS DIABETIC, AND THEREFORE, HE SHOULD NOT BE CONSUMING SO MUCH FOOD THROUGHOUT THE NIGHT, ESPECIALLY WHEN HIS BLOOD SUGAR WAS LOW ENOUGH THAT HE DID NOT RECEIVE AN HS DOSE OF INSULIN. PT BLOOD SUGAR 428 APPROX 0432. PT INFORMED HE NEEDS TO WAIT FOR BREAKFAST FOR MORE FOOD, SO HIS BLOOD SUGAR DOES NOT BECOME CRITICAL.
[2024-03-10 07:44] VITALS: BP 122/77
[2024-03-10] MEDS ORDERED: Insulin Glargine-Yfgn 100 Unit/mL 3 ML SYR SC SCH (09:00)
[2024-03-10 15:24] VITALS: BP 106/68
--- NOTE | 2024-03-10 18:35 | NUR ---
SHIFT SUMMARY: PT A&O X4. UNCOOPERATIVE/NONCOMPLIENT WITH MOST CARE. CONTACT FOR MRSA IN WOUND. NO ACUTE CHANGES THIS SHIFT. PT IS WANTING TO GO BACK HOME TO [facility] BUT IS UNABLE TO RETURN AT THIS TIME. ATTEMPTED TO CLAMP CATHETER MULTIPLE TIMES THIS SHIFT BUT PT HAD NO URGE TO VOID. CALL LIGHT IN REACH. BED IN LOWEST POSITION.
[2024-03-10 19:58] VITALS: BP 123/71
[2024-03-11 02:10] VITALS: BP 116/69
--- NOTE | 2024-03-11 06:30 | NUR ---
SHIFT SUMMARY ASSUMED CARE OF PT AT APPROX 1900. PT A&O4, WITH FLAT AFFECT AND NOT INTERESTED IN INITIATING EYE CONTACT OR CONVERSATION. PT REQUESTED AMPLE AMOUNT OF SNACKS AND BEVERAGES OVERNIGHT. RE-EDUCATED PT OF DIABETIC DIET AND PT UNINTERESTED. BLADDER TRAINING DONE AND PT SHOWED NO SIGNS ON URGE TO URINATE. PT DENIES CP/PRESSURE AND DENIES SOB. NO ACUTE EVENTS TO REPORT. BED IN LOWEST POSITION AND CALL LIGHT WITHIN REACH.
[2024-03-11 07:44] VITALS: BP 133/74
[2024-03-11 15:50] VITALS: BP 113/58
--- NOTE | 2024-03-11 16:56 | NUR ---
SHIFT SUMMARY PT IS A/OX3 WITH SOME CONFUSION OF DATE/TIME. NO ACUTE EVENTS THROUGHOUT THIS SHIFT. PT REQUESTING SNACKS THROUGHOUT THE DAY. PT HAD A BM THIS EVENING USING THE BEDPAN. PT RELAYING A FLAT AND UNINTERESTED AFFECT IN CARE. CANO IN PLACE DRAIN CLEAR, YELLOW URINE. PT REPORTS WANTING TO GO BACK TO [facility] HOWEVER IS STILL UNABLE TO RETURN AT THIS TIME. CALL LIGHT IN REACH.
[2024-03-11 19:18] VITALS: BP 129/72
--- NOTE | 2024-03-12 01:47 | NUR ---
03/11/242134 PT REPORTS L FOOT PAIN, GAVE PAIN MEDS, WILL EVAL FOR EFFECT. PT REPORTS A LITTLE SOB THAT INCREASES WITH EXERTION, ON RA AT 100%. PT HAD AMP OF TOES ON L FOOT, CLEANED WOUND AND CHANGED DRESSING. PT TOLERATED WELL. PT ASKS FOR MASSIVE AMOUNTS OF SNACKS/FOOD, HE DOES NOT APPEAR TO PUT ANY LIMITATIONS ON HIS INTAKE. SPOKE WITH PATIENT ON SOME LIMITS FOR THE NIGHT AFTER MULTIPLE SNACKS GIVEN. PT AGREEABLE TO THIS. NO OTHER APPARENT SIGNS OF DISTRESS. CALL LIGHT IS IN REACH.
--- NOTE | 2024-03-12 02:12 | NUR ---
03/11/24 2330 PT REQUESTED AND RECIVED SNACKS. NO OTHER APPARENT SIGNS OF DISTRESS. CALL LIGHT IS IN REACH.
--- NOTE | 2024-03-12 02:13 | NUR ---
PT LYING IN BED, EYES CLOSED, APPEARS TO BE RESTING. BREATHING IS EVEN, UNLABORED. NO APPARENT SIGNS OF DISTRESS. CALL LIGHT IS IN REACH.
[2024-03-12 03:49] VITALS: BP 116/66
--- NOTE | 2024-03-12 04:37 | NUR ---
PT REQUESTED AND RECEIVED AN ENSURE. NO OTHER APPARENT SIGNS OF DISTRESS. CALL LIGHT IS IN REACH.
--- NOTE | 2024-03-12 04:38 | NUR ---
PT IS AAO X 4, IS SOMEWHAT IMPULSIVE WITH HIS NEEDS AND DOES NOT APPEAR TO REALIZE ANY LIMITS WITH FOOD. REPORTS A LITTLE SOB THAT INCREASES WITH EXERTION, ON RA AT 100%. REPORTS PAIN IN L FOOT. GOT PAIN MEDS AT HS. PT'S DRESSING WAS CHANGED ON HIS L FOOT AND ON HIS POWER GLIDE. BS WAS 221.
--- NOTE | 2024-03-12 06:29 | NUR ---
PT LYING IN BED, EYES CLOSED, APPEARS TO BE RESTING. BREATHING IS EVEN, UNLABORED. NO APPARENT SIGNS OF DISTRESS. CALL LIGHT IS IN REACH. NO OTHER CHANGES THIS SHIFT.
[2024-03-12 07:20] VITALS: BP 120/65
[2024-03-12] MEDS ORDERED: Insulin Glargine-Yfgn 100 Unit/mL 3 ML SYR SC SCH (09:00)
[2024-03-12] MEDS ORDERED: FURO40 PO (12:41)
[2024-03-12] MEDS ORDERED: JARDIANCE10 MG PO (12:41)
[2024-03-12] MEDS ORDERED: JUVEN PACKET1 EAC3 PO (12:41)
[2024-03-12] MEDS ORDERED: SPIR25 PO (12:42)
[2024-03-12] MEDS ORDERED: METO25ER PO (12:42)
[2024-03-12] MEDS ORDERED: TRAM50 PO (12:42)
[2024-03-12] MEDS ORDERED: LOSA25 PO (12:42)
[2024-03-12] MEDS ORDERED: TAMS.4ER PO (12:42)
[2024-03-12] MEDS ORDERED: FERSU300 PO (12:43)
[2024-03-12] MEDS ORDERED: ASCO500 PO (12:43)
[2024-03-12] MEDS ORDERED: DOCU100 PO (12:43)
--- NOTE | 2024-03-12 14:45 | NUR ---
DISCHARGE: PT D/C @1542 VIA WHEELCHAIR WITH TRANSPORT BACK TO [facility]. HOME HEALTH TO ASSIST WITH WOUND CARE AND CANO. POWERGLIDE REMOVED BY JUAQUIN JAIME WITHOUT COMPLICATIONS. WOUNDS REWRAPPED ON FOIL WRAPPER. HARD SCRIPT FOR PAIN MEDICATIONS SENT WITH TRANSPORT. ALL BELONGINGS BACK TO PATIENT.
== END 2024-03-12 14:15 | disposition home health service (06) | DRG 853 ==
LOC: ER 14:25 → MEDS 17:40
PROVIDERS: Emergency Medicine; Family Medicine; Internal Medicine; Nurse Practitioner Acute Care; Podiatrist; ADMIT Internal Medicine
PROC: 3E02340 Introduction of Influenza Vaccine into Muscle, Percutaneous Approach (ICD-10-PCS; 2024-02-26)
PROC: 3E03329 Introduction of Other Anti-infective into Peripheral Vein, Percutaneous Approach (ICD-10-PCS; 2024-02-26)
PROC: 0Y6N0ZB Detachment at Left Foot, Partial 2nd Ray, Open Approach (ICD-10-PCS; 2024-02-29)
PROC: 0Y6N0ZC Detachment at Left Foot, Partial 3rd Ray, Open Approach (ICD-10-PCS; 2024-02-29)
PROC: 0Y6N0ZD Detachment at Left Foot, Partial 4th Ray, Open Approach (ICD-10-PCS; 2024-02-29)
PROC: 0Y6N0Z9 Detachment at Left Foot, Partial 1st Ray, Open Approach (ICD-10-PCS; principal; 2024-02-29 15:00)
PROC: 30233N1 Transfusion of Nonautologous Red Blood Cells into Peripheral Vein, Percutaneous Approach (ICD-10-PCS; 2024-03-01)
PROC: 30233K1 Transfusion of Nonautologous Frozen Plasma into Peripheral Vein, Percutaneous Approach (ICD-10-PCS; 2024-03-01)
DX: A41.9 Sepsis, unspecified organism (principal); I50.21 Acute systolic (congestive) heart failure; D62 Acute posthemorrhagic anemia; M86.172 Other acute osteomyelitis, left ankle and foot; E87.1 Hypo-osmolality and hyponatremia; Z59.01 Sheltered homelessness; L97.418 Non-pressure chronic ulcer of right heel and midfoot with other specified severity; E46 Unspecified protein-calorie malnutrition; L02.612 Cutaneous abscess of left foot; L97.424 Non-pressure chronic ulcer of left heel and midfoot with necrosis of bone; E11.69 Type 2 diabetes mellitus with other specified complication; E11.621 Type 2 diabetes mellitus with foot ulcer; F15.10 Other stimulant abuse, uncomplicated; I49.3 Ventricular premature depolarization; L97.524 Non-pressure chronic ulcer of other part of left foot with necrosis of bone; R07.89 Other chest pain; I11.0 Hypertensive heart disease with heart failure; F32.A Depression, unspecified; F17.210 Nicotine dependence, cigarettes, uncomplicated; J44.9 Chronic obstructive pulmonary disease, unspecified; E11.65 Type 2 diabetes mellitus with hyperglycemia; N13.9 Obstructive and reflux uropathy, unspecified; M54.2 Cervicalgia; E87.6 Hypokalemia; R33.8 Other retention of urine; D75.838 Other thrombocytosis; Z91.148 Patient's other noncompliance with medication regimen for other reason; Z79.4 Long term (current) use of insulin; Z87.820 Personal history of traumatic brain injury; Z89.421 Acquired absence of other right toe(s); Z89.411 Acquired absence of right great toe; Z89.422 Acquired absence of other left toe(s); Z23 Encounter for immunization; Z68.25 Body mass index [BMI] 25.0-25.9, adult
CPT/HCPCS: 36415; 36430; 71046; 72040; 73620; 80048; 80053; 80069; 80202; 82607; 82728; 82746; 82947; 83540; 83550; 83605; 83735; 83880; 84132; 84484; 85014; 85018; 85025; 85027; 85045; 85379; 85610; 85651; 86140; 86850; 86900; 86901; 86923; 87040; 87070; 87071; 87075; 87076; 87147; 87185; 87205; 88305; 88311; 90656; 93005; 93010; 94640; 94664; 94760; 96374; 96375; 97162; 97530; 99285-25; A9270; C1751; C8929; J0696; J1815; J1885; J1940; J2003; J2250; J2371; J2405; J2543; J2704; J2916; J3010; J3370; J3480; J7030; J7040; J7050; P9016; P9059; Q9957

== ENCOUNTER 2024-03-18 12:13 | Day surgery (SDC) | payer OTHER ==
[~2024-03-18 12:13] MED LIST changes: +ASCO500 PO; +BISA10S PR; +DOCU100 PO; +DULO30 PO; +FERSU300 PO; +FURO40 PO; +Fleet Enema132 ML PR; +GENTLE LAX400 MG/5 M PO; +INSULIN AS100 UNIT/6 SC; +JARDIANCE10 MG PO; +JUVEN PACKET1 EAC3 PO; +LOPERAMIDE212 PO; +LOSA25 PO; +METO25ER PO; +NYSTATIN15 GM TOP; +SPIR25 PO; +TAMS.4ER PO
== END 2024-03-18 23:00 | disposition home or self-care (01) ==
LOC: WOUND 12:13
DX: E11.621 Type 2 diabetes mellitus with foot ulcer (principal); L97.412 Non-pressure chronic ulcer of right heel and midfoot with fat layer exposed; L97.425 Non-pressure chronic ulcer of left heel and midfoot with muscle involvement without evidence of necrosis; T81.31XD Disruption of external operation (surgical) wound, not elsewhere classified, subsequent encounter; E11.40 Type 2 diabetes mellitus with diabetic neuropathy, unspecified; D50.9 Iron deficiency anemia, unspecified; F17.210 Nicotine dependence, cigarettes, uncomplicated; G47.30 Sleep apnea, unspecified; I11.0 Hypertensive heart disease with heart failure; I50.9 Heart failure, unspecified; Z87.820 Personal history of traumatic brain injury
CPT/HCPCS: 36415; 80053; 82728; 83540; 83550; 85025; G0463

== ENCOUNTER → 2024-05-28 | Outpatient (CLI) | payer OTHER ==
[2024-05-28 16:25] LABS: BASOPHILS ABSOLUTE AUTO 0.06 K/mm3 (0.00-0.23); BASOPHILS PERCENT AUTO 1 % (0-2); EOSINOPHILS ABSOLUTE AUTO 0.23 K/mm3 (0.00-0.68); EOSINOPHILS PERCENT AUTO 3 % (0-6); Hematocrit 43.1 % (37.0-53.0); Hemoglobin 13.6 g/dL (13.5-17.5); IMMATURE GRAN ABSOLUTE AUTO 0.04 K/mm3 (0.00-0.10); IMMATURE GRAN PERCENT AUTO 1 % (0-1); LYMPHOCYTES PERCENT AUTO 35 % (21-46); MONOCYTES ABSOLUTE AUTO 0.78 K/mm3 (0.16-1.47); MONOCYTES PERCENT AUTO 11 % (4-13); Mean Corpuscular HGB 25.1 pg (26.0-34.0); Mean Corpuscular HGB Conc 31.6 g/dL (31.5-36.5); Mean Corpuscular Volume 80 fL (80-100); Mean Platelet Volume 9.5 fL (9.1-12.4); NEUTROPHILS ABSOLUTE AUTO 3.53 K/mm3 (1.96-9.15); NEUTROPHILS PERCENT AUTO 50 % (41-73); Platelet Count 444 K/mm3 (150-400); RDW Coefficient Variation 16.9 % (11.7-14.2); RDW Standard Deviation 48.7 fL (35.1-46.3); Red Blood Cell Count 5.41 M/mm3 (4.30-5.90); White Blood Cell Count 7.14 K/mm3 (4.00-11.30)
[2024-05-28 17:10] LABS: Albumin, Blood 3.5 g/dL (3.4-5.0); Albumin/Globulin Ratio 0.7 (0.8-1.8); Bilirubin, Total 0.3 mg/dL (0.1-1.0); Calcium, Blood 9.2 mg/dL (8.5-10.1); Creatinine, Blood 0.85 mg/dL (0.60-1.20); Globulin, Blood 5.1 g/dL (2.2-4.0); Potassium, Blood 3.8 mmol/L (3.5-5.5); Total Protein, Blood 8.6 g/dL (6.4-8.2)
== END ==
LOC: LAB 14:18 → LAB SHORT 14:18
PROVIDERS: Nurse Practitioner Family
DX: I10 Essential (primary) hypertension (principal); E11.8 Type 2 diabetes mellitus with unspecified complications
CPT/HCPCS: 80053; 83036; 85025

== ENCOUNTER 2024-08-19 09:37 | Emergency (ER) | payer OTHER ==
[~2024-08-19] VITALS: Ht 175.3 cm; Wt 72.6 kg
[2024-08-19 10:44] VITALS: BP 132/70
== END 2024-08-19 10:45 | disposition home or self-care (01) ==
LOC: ER 09:37
DX: I87.2 Venous insufficiency (chronic) (peripheral) (principal); E11.40 Type 2 diabetes mellitus with diabetic neuropathy, unspecified; I10 Essential (primary) hypertension; F17.210 Nicotine dependence, cigarettes, uncomplicated; Z79.4 Long term (current) use of insulin; Z79.82 Long term (current) use of aspirin; Z79.2 Long term (current) use of antibiotics
CPT/HCPCS: 99283

== ENCOUNTER 2024-09-05 03:04 | Day surgery (SDC) | payer OTHER ==
[2024-09-05] MEDS ORDERED: Lidocaine HCl 4% Cream 5 GM ONE (14:49)
== END 2024-09-05 23:00 | disposition home or self-care (01) ==
LOC: WOUND 03:04
DX: E11.622 Type 2 diabetes mellitus with other skin ulcer (principal); L97.812 Non-pressure chronic ulcer of other part of right lower leg with fat layer exposed; L97.412 Non-pressure chronic ulcer of right heel and midfoot with fat layer exposed; E11.51 Type 2 diabetes mellitus with diabetic peripheral angiopathy without gangrene; I87.2 Venous insufficiency (chronic) (peripheral); E11.42 Type 2 diabetes mellitus with diabetic polyneuropathy; I10 Essential (primary) hypertension; Z72.0 Tobacco use
CPT/HCPCS: A6213; A9270

== ENCOUNTER 2024-10-09 01:41 | Day surgery (SDC) | payer OTHER | END 2024-10-09 23:00 | disposition home or self-care (01) | LOC: WOUND 01:41 | DX: E11.622 Type 2 diabetes mellitus with other skin ulcer (principal); L97.813 Non-pressure chronic ulcer of other part of right lower leg with necrosis of muscle; E11.621 Type 2 diabetes mellitus with foot ulcer; L97.412 Non-pressure chronic ulcer of right heel and midfoot with fat layer exposed; E11.51 Type 2 diabetes mellitus with diabetic peripheral angiopathy without gangrene; E11.42 Type 2 diabetes mellitus with diabetic polyneuropathy; I87.2 Venous insufficiency (chronic) (peripheral); I10 Essential (primary) hypertension; Z72.0 Tobacco use | CPT/HCPCS: G0463 ==

== ENCOUNTER 2024-10-23 03:17 | Day surgery (SDC) | payer OTHER ==
[2024-10-23] MEDS ORDERED: Lidocaine HCl 4% Cream 5 GM ONE (09:22)
== END 2024-10-23 23:00 | disposition home or self-care (01) ==
LOC: WOUND 03:17
DX: L97.512 Non-pressure chronic ulcer of other part of right foot with fat layer exposed (principal); E11.51 Type 2 diabetes mellitus with diabetic peripheral angiopathy without gangrene; I87.2 Venous insufficiency (chronic) (peripheral); E11.42 Type 2 diabetes mellitus with diabetic polyneuropathy; I10 Essential (primary) hypertension; Z72.0 Tobacco use; Z89.421 Acquired absence of other right toe(s)
CPT/HCPCS: A6213; A9270

== ENCOUNTER 2025-01-27 08:42 | Emergency (ER) | payer OTHER ==
[~2025-01-27] VITALS: Ht 175.3 cm; Wt 74.8 kg
[2025-01-27 11:00] VITALS: BP 124/75
== END 2025-01-27 17:04 | disposition home or self-care (01) ==
LOC: ER 08:42
DX: T38.3X1A Poisoning by insulin and oral hypoglycemic [antidiabetic] drugs, accidental (unintentional), initial encounter (principal); E11.649 Type 2 diabetes mellitus with hypoglycemia without coma; Z79.84 Long term (current) use of oral hypoglycemic drugs; Z79.899 Other long term (current) drug therapy
CPT/HCPCS: 82947; 96374; 96376; 99284-25